=== PATIENT | female | born 1945 | race Caucasian/White ===

== ENCOUNTER 2018-10-27 15:13 | Inpatient (IN) ==
[2018-10-27] MEDS ORDERED: Benzonatate 100 MG CAPSULE PO PRN (20:36)
[2018-10-27] MEDS ORDERED: GuaiFENesin Liq 200 MG/10 ML UDC PO PRN (20:43)
[2018-10-27] MEDS ORDERED: Famotidine 20 MG TABLET PO PRN (20:43)
[2018-10-27] MEDS ORDERED: Loratadine 10 MG TABLET PO SCH (21:00)
[2018-10-27] MEDS ORDERED: Dextrose Gel 15 GM/37.5 ML TUBE PO PRN ×2 (22:36)
[2018-10-27] MEDS ORDERED: D5% in Water 1,000 ML IVC PRN (22:36)
[2018-10-27] MEDS ORDERED: *HR* Dextrose 50 % in Water (Syg) 50 ML SYRINGE IVP PRN (22:36)
[2018-10-27] MEDS: Lactulose Oral Soln 20 GM/30 ML UDC PO SCH (22:45)
[2018-10-27] MEDS: Alirocumab [Praluent Pen] 75 MG SQ SCH (22:45)
[2018-10-27] MEDS: Cefdinir 300 MG CAPSULE PO SCH (22:45)
[2018-10-27] MEDS: Nitrofurantoin (BID) 100 MG CAPSULE PO SCH (22:50)
[2018-10-27] MEDS: Insulin LISPRO 300 UNITS/3 ML VIAL SQ SCH (22:53)
[2018-10-28] MEDS: Torsemide 20 MG TABLET PO SCH (09:41)
[2018-10-28] MEDS: Nitrofurantoin (BID) 100 MG CAPSULE PO SCH ×2 (09:41→22:16)
[2018-10-28] MEDS: Fenofibrate 54 MG TABLET PO SCH (09:41)
[2018-10-28] MEDS: Cholecalciferol (D-3) 1,000 UNIT (25MCG) TABLET PO SCH (09:41)
[2018-10-28] MEDS: Lactulose Oral Soln 20 GM/30 ML UDC PO SCH ×4 (09:41→22:16)
[2018-10-28] MEDS: Insulin LISPRO 300 UNITS/3 ML VIAL SQ SCH ×4 (09:42→22:17)
[2018-10-28] MEDS: Cefdinir 300 MG CAPSULE PO SCH ×2 (09:42→22:16)
--- NOTE | 2018-10-28 12:08 | Internal Med History&Physical ---
Date of Encounter: 10/28/18 Time of Encounter: 11:35 Assessment and Plan (1) Hepatic encephalopathy Current visit: Yes Status: Acute Continue lactulose 20 g qid. (2) HTN (hypertension) Current visit: No Status: Chronic Continue Tenormin and Demadex Qualifiers: Hypertension type: essential hypertension Qualified Code(s): I10 - Essential (primary) hypertension (3) DM type 2 (diabetes mellitus, type 2) Current visit: No Status: Chronic Hemoglobin A1c was 8.4% on 10/22/2018. Continue basal insulin and Accu-Cheks with SSI. Qualifiers: Diabetes mellitus mcfp insulin use: with mcfp use Diabetes mellit complication status: with hyperglycemia Qualified Code(s): E11.65 - Type 2 diabetes mellitus with hyperglycemia; Z79.4 - lobsterman (current) use of insulin (4) Cholelithiasis Current visit: No Status: Chronic Follow-up with surgeon as outpatient. Qualifiers: Cholelithiasis location: gallbladder Cholecystitis presence: without cholecystitis Biliary obstruction: without biliary obstruction Qualified Code(s): K80.20 - Calculus of gallbladder without cholecystitis without obstruction (5) Chronic back pain Current visit: No Status: Chronic Continue tramadol as needed Qualifiers: Back pain location: low back pain Back pain laterality: bilateral Sciatica presence: without sciatica Qualified Code(s): M54.5 - Low back pain; G89.29 - Other chronic pain (6) UTI (urinary tract infection) Current visit: No Status: Acute Continue nitrofurantoin and Cefdinir through 11/01/2018. Add lactobacillus Qualifiers: Urinary tract infection type: acute cystitis Hematuria presence: with hematuria Qualified Code(s): N30.01 - Acute cystitis with hematuria Internal Medicine - H&P: HPI Chief complaint: Hepatic encephalopathy, UTI Admitted From: Hospital to Hospital Transfer Plans for Post Hospital Care: Home History of present illness: Ms. Rodriguez is a 73 year old female who was hospitalized at [facility] October 21- after admission for altered mental status. 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 She was placed on lactulose. CT scan did not show ascites. Ammonia level showed fluctuation but continued elevation. Viral hepatitis profile screen was negative. Additional workup by GI showed elevated IgA but no additional significant abnormalities. She was discharged to [facility] swing bed for ongoing care needs. She denies alcohol use. GI history is negative otherwise for known disorders of her liver or exocrine pancreas. Right upper quadrant ultrasound at [facility] showed cholelithiasis with gallbladder wall thickening and sludge but no evidence of acute cholecystitis. Surgery consult was obtained and recommended outpatient follow-up. Past Med Surg Social Fam HX - Past Medical History Medical history: COPD, diabetes, GERD, hypertension, other Additional medical history: medial meniscus tear. OA of knee Psychiatric history: depression - Past Surgical History Additional surgical history: R total shoulder replacement. CTR right hand. right hand surgery trigger finger. dental - Social History Smoking Status: Never smoker Smokeless Tobacco Status: No Alcohol use: none Drug use: none - Family History Father Age at : 69 Cause of : heart attack Hx Family Cardiac Disorders: Yes Mother Age: 94 Cause of : pneumonia Hx Family Endocrine Disorder: Yes (diabetes) Hx Family Medical Disorders: (6 brothers passed from cancer) Internal Medicine - H&P: Meds Alirocumab [Praluent Pen] 75 mg SQ Q2W 10/21/18 [History] Atenolol [Tenormin] 50 mg PO DAILY 10/21/18 [History] Benzonatate [Tessalon] 200 mg PO Q8HR PRN 10/21/18 [History] Clopidogrel Bisulfate [Plavix] 75 mg PO DAILY 10/21/18 [History] Esomeprazole Magnesium [Nexium] 40 mg PO DAILY 10/21/18 [History] Fenofibrate,Micronized [Fenofibrate] 200 mg PO DAILY 10/21/18 [History] Insulin Glargine,Hum.rec.anlog [Basaglar Kwikpen U-100] 55 unit SQ BID 10/21/18 [History] Potassium Chloride [K-Tab ER] 20 meq PO BID 10/21/18 [History] Torsemide [Demadex] 20 mg PO DAILY 10/21/18 [History] Cholecalciferol (D-3) [Vitamin D] 1,000 unit PO DAILY 10/22/18 [History] Escitalopram [Lexapro] 20 mg PO DAILY 10/22/18 [History] Loratadine [Allergy Relief] 10 mg PO HS 10/22/18 [History] Ranitidine HCl [Heartburn Relief] 150 mg PO BID PRN 10/22/18 [History] Ferrous Fumarate [Ferrocite] 324 mg PO DAILY 10/25/18 [History] Guaifenesin [Mucus Relief] 400 mg PO Q12H PRN 10/25/18 [History] Insulin LISPRO [Humalog Kwikpen U-100] 40 - 46 unit SQ TID 10/25/18 [History] Cefdinir [Omnicef] 300 mg PO BID 4 Days #8 capsule 10/27/18 [Rx] Lactulose 20 gm PO QID udc 10/27/18 [Rx] Nitrofurantoin (BID) [Macrobid] 100 mg PO BID 5 Days #10 capsule 10/27/18 [Rx] Tramadol HCl [Ultram] 50 mg PO Q6H PRN 3 Days #10 tablet 10/27/18 [Rx] Allergy/AdvReac Type Severity Reaction Status Date / Time codeine AdvReac Nausea Verified 10/21/18 21:33 rosuvastatin [From Crestor] AdvReac See Verified 10/21/18 21:33 Comments Sulfa (Sulfonamide AdvReac Cough Verified 10/21/18 21:33 Antibiotics) All Systems PM: A 10-system review of systems was performed and is negative for pertinent findings except as documented above in the HPI. Review of systems: Gen.: She states her weight has been stable for several months Cardiovascular: She reports hypertension and claims MO approximately 2005. Regadenoson EST 10/06/2017 showed LVEF of 70% and no EKG or perfusion evidence of ischemia. She denies history of heart failure DVT or pulmonary embolus Respiratory: She is a lifelong nonsmoker and denies chronic lung disease GI: As per history of present illness : She had right hydronephrosis seen on CT scan at [facility] admission. Urology was consulted and did not recommend specific intervention. She denies other dis orders of her kidney or bladder. 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 Head CT 10/21/2018 showed chronic ischemic changes including remote right occipital infarct. She denies seizures. Endocrine: She reports diagnosis of diabetes made approximately one year ago. She has hyperlipidemia but denies known thyroid disease Hematology/oncology: She denies blood disorders cancers or anemia Psychiatric: She denies anxiety depression or other mental health issues Musko skeletal: She has DJD and chronic low back pain. She denies known gout. - Constitutional Vitals: Temp Pulse Resp BP Pulse Ox 97.8 F 69 16 153/71 93 10/28/18 06:37 10/28/18 06:37 10/28/18 06:37 10/28/18 06:37 10/28/18 06:37 Exam: Gen.: She is a well-developed well-nourished female sitting in a chair at bedside who appears in no acute distress HEENT: Head is atraumatic and normocephalic. Eyes: EOMI. There is no scleral icterus. Mouth: Mucosa is moist. Neck: Supple and nontender. There is no thyromegaly or adenopathy noted. Heart: Regular without murmurs gallops or ectopics Lungs: No wheezes or crackles are heard. Abdomen: Soft and nontender. No masses or guarding are noted. Extremities: There is no cyanosis or clubbing noted. There is trace pitting edema on the dorsum of the feet and lower legs bilaterally. Dorsalis pedis and posterior tibial pulses are trace palpable. Neurologic: Mental status: She is able to answer questions but has slowed mentation. Cranial nerves: Smile is symmetric. Forehead wrinkles bilaterally. Tongue protrudes midline. EOMI. Motor: There is no pronator drift. Cerebellar: Finger to nose is intact bilaterally. Skin: Warm and dry
[2018-10-28] MEDS: Lactobacillus 1 EACH CAP.SPRINK PO SCH (22:16)
[2018-10-28] MEDS: Insulin DETEMIR 100 UNIT/ML X5UNITS SQ SCH (22:16)
[2018-10-29] MEDS: Torsemide 20 MG TABLET PO SCH (08:07)
[2018-10-29] MEDS: Lactulose Oral Soln 20 GM/30 ML UDC PO SCH ×2 (08:07→15:00)
[2018-10-29] MEDS: Cefdinir 300 MG CAPSULE PO SCH ×2 (08:07→22:03)
[2018-10-29] MEDS: Fenofibrate 54 MG TABLET PO SCH (08:08)
[2018-10-29] MEDS: Insulin LISPRO 300 UNITS/3 ML VIAL SQ SCH ×4 (08:08→22:04)
[2018-10-29] MEDS: Lactobacillus 1 EACH CAP.SPRINK PO SCH ×2 (08:08→22:03)
[2018-10-29] MEDS: Cholecalciferol (D-3) 1,000 UNIT (25MCG) TABLET PO SCH (08:08)
[2018-10-29] MEDS: Insulin DETEMIR 100 UNIT/ML X5UNITS SQ SCH ×2 (08:09→22:04)
[2018-10-29] MEDS: Nitrofurantoin (BID) 100 MG CAPSULE PO SCH ×2 (08:11→22:07)
--- NOTE | 2018-10-29 10:14 | Internal Med Progress Note ---
Date of Encounter: 10/29/18 Time of Encounter: 10:05 - Assessment and plan (1) Hepatic encephalopathy Current Visit: Yes Status: Acute Assessment and plan: October 29. Change lactulose to 30 g twice a day at 0700 and 1500 daily. (2) HTN (hypertension) Current Visit: No Status: Chronic Assessment and plan: October 29. Continue Tenormin and Demadex Qualifiers: Hypertension type: essential hypertension Qualified Code(s): I10 - Essential (primary) hypertension (3) DM type 2 (diabetes mellitus, type 2) Current Visit: No Status: Chronic Assessment and plan: October 29. Hemoglobin A1c was 8.4% on 10/22/2018. Blood sugars are above desirable range. Increase Levemir to 18 units twice daily. Continue Accu-Cheks with SSI. Qualifiers: Diabetes mellitus watcher automat long goods insulin use: with residential use Diabetes mellitus complication status: with hyperglycemia Qualified Code(s): E11.65 - Type 2 diabetes mellitus with hyperglycemia; Z79.4 - [facility] (current) use of insulin (4) Cholelithiasis Current Visit: No Status: Chronic Assessment and plan: October 29. Follow-up with surgeon as outpatient. Qualifiers: Cholelithiasis location: gallbladder Cholecystitis presence: without cholecystitis Biliary obstruction: without biliary obstruction Qualified Code(s): K80.20 - Calculus of gallbladder without cholecystitis without obstruction (5) Chronic back pain Current Visit: No Status: Chronic Assessment and plan: October 29. Continue tramadol as needed. Qualifiers: Back pain location: low back pain Back pain laterality: bilateral S ciatica presence: without sciatica Qualified Code(s): M54.5 - Low back pain; G89.29 - Other chronic pain (6) UTI (urinary tract infection) Current Visit: No Status: Acute Assessment and plan: October 29. Continue nitrofurantoin and Cefdinir with lactobacillus through 11/01/2018. Qualifiers: Urinary tract infection type: acute cystitis Hematuria presence: with hematuria Qualified Code(s): N30.01 - Acute cystitis with hematuria - Subjective Interval history: October 29. She reports feeling tired today after having gone to the bathroom for BM several times during the night. - Constitutional Vitals: Temp Pulse Resp BP Pulse Ox 98.5 F 73 20 174/83 96 10/29/18 07:09 10/29/18 07:09 10/29/18 07:09 10/29/18 07:09 10/29/18 07:09 Exam: She is sitting in a chair at bedside resting comfortably. Her affect is overall cheerful. Extremities show trace pitting edema bilaterally. I reviewed her medications and lab results. Consult Discharge Plan - Plan Referrals: Cesar Terry MD [Primary Care Provider] - 1 week
[2018-10-29] MEDS: traMADol 50 MG TABLET PO PRN ×2 (11:53→22:03)
[2018-10-30] MEDS: Lactulose Oral Soln 20 GM/30 ML UDC PO SCH ×2 (06:19→14:52)
[2018-10-30] MEDS: Cholecalciferol (D-3) 1,000 UNIT (25MCG) TABLET PO SCH (08:31)
[2018-10-30] MEDS: Nitrofurantoin (BID) 100 MG CAPSULE PO SCH ×2 (08:31→21:26)
[2018-10-30] MEDS: Torsemide 20 MG TABLET PO SCH (08:32)
[2018-10-30] MEDS: Cefdinir 300 MG CAPSULE PO SCH ×2 (08:32→21:20)
[2018-10-30] MEDS: Lactobacillus 1 EACH CAP.SPRINK PO SCH ×2 (08:32→21:20)
[2018-10-30] MEDS: Fenofibrate 54 MG TABLET PO SCH (08:33)
[2018-10-30] MEDS: Insulin LISPRO 300 UNITS/3 ML VIAL SQ SCH ×5 (08:34→21:21)
[2018-10-30] MEDS: Insulin DETEMIR 100 UNIT/ML X5UNITS SQ SCH ×2 (08:37→21:21)
[2018-10-30] MEDS: traMADol 50 MG TABLET PO PRN (08:42)
--- NOTE | 2018-10-30 19:51 | Internal Med Progress Note ---
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 insulin (2) Hepatic encephalopathy Current Visit: Yes Status: Acute Assessment and plan: Continue lactulose (3) Headache Current Visit: Yes Status: Acute Assessment and plan: Headache is primarily related to bear that brain aneurysms Qualifiers: Headache type: other vascular headache Qualified Code(s): G44.1 - Vascular headache, not elsewhere classified (4) UTI (urinary tract infection) Current Visit: Yes Status: Acute Assessment and plan: Continue nitrofurantoin Ceftin near and lactobacilli through 11/01/18 Qualifiers: Urinary tract infection type: acute cystitis Hematuria presence: with hematuria Qualified Code(s): N30.01 - Acute cystitis with hematuria (5) Brain aneurysm Current Visit: Yes Status: Chronic Assessment and plan: Patient declines further workup she would not want surgery (6) Hyperammonemia Current Visit: No Status: Chronic Assessment and plan: Continue the lactulose (7) HTN (hypertension) Current Visit: No Status: Chronic Assessment and plan: Stable continue Tenormin and Demadex Qualifiers: Hypertension type: essential hypertension Qualified Code(s): I10 - Essential (primary) hypertension (8) DM type 2 (diabetes mellitus, type 2) Current Visit: No Status: Chronic Assessment and plan: Adjusting insulins. Her to decrease refined foods and processed sugars Qualifiers: Diabetes mellitus exterminator helper insulin use: with exterminator helper use Diabetes mellitus complication status: with hyperglycemia Qualified Code(s): E11.65 - Type 2 diabetes mellitus with hyperglycemia; Z79.4 - jail (current) use of insulin (9) Chronic back pain Current Visit: No Status: Chronic Assessment and plan: Control continue tramadol Qualifiers: Back pain location: low back pain Back pain laterality: bilateral Sciatica presence: without sciatica Qualified Code(s): M54.5 - Low back pain; G89.29 - Other chronic pain - Time Spent With Patient Greater than 35 minutes - Subjective Interval history: 50-year-old female with history of hepatic encephalopathy on lactulose for elevated ammonia level. She is admitted to [facility] from October 21- and then discharged her for rehabilitation Dr. Ruiz was seen her I am covering for him this weekend. She has a history of hypertension diabetes minus type II cholelithiasis, chronic lower back pain, UTI, Oak[place], depression, GERD, COPD, OA. Eyes asked to see her because her blood sugars are running high she was on the vascular home sliding scale that he like 40 units when it was normal range no NovoLog. I do not feel comfortable with this we will go ahead and give her long-acting insulin at home but we will give continuous of NovoLog with each meal and sliding scale to see how much or she needs to. She is okay with this plan. He also mentioned having headaches whenever she got up to go to rehabilitation. They improve when she laid down. Things are prior related to her brain aneurysms. She denies any chest pain shortness breath headache bowel pain right now. Questions answered concerns addressed - Constitutional Vitals: Temp Pulse Resp BP Pulse Ox 97.5 F L 69 17 140/73 94 10/30/18 19:20 10/30/18 19:20 10/30/18 19:20 10/30/18 19:20 10/30/18 19:20 Exam: General: Alert no acute distress seemed to have issues with details Lungs: Clear to auscultation bilaterally without wheezing or crackles Heart: Regular rate and rythms without murmer or rubs Abdomen: Soft, nontender, Extremities: no edema, redness Consult Discharge Plan - Plan Referrals: Cesar Terry MD [Primary Care Provider] - 1 week
[2018-10-31] MEDS: Lactulose Oral Soln 20 GM/30 ML UDC PO SCH ×2 (06:22→14:44)
[2018-10-31] MEDS: Insulin LISPRO 300 UNITS/3 ML VIAL SQ SCH ×7 (09:07→21:30)
[2018-10-31] MEDS: Lactobacillus 1 EACH CAP.SPRINK PO SCH ×2 (09:09→21:30)
[2018-10-31] MEDS: Torsemide 20 MG TABLET PO SCH (09:09)
[2018-10-31] MEDS: Fenofibrate 54 MG TABLET PO SCH (09:09)
[2018-10-31] MEDS: Cholecalciferol (D-3) 1,000 UNIT (25MCG) TABLET PO SCH (09:09)
[2018-10-31] MEDS: Cefdinir 300 MG CAPSULE PO SCH ×2 (09:10→21:29)
[2018-10-31] MEDS: Insulin DETEMIR 100 UNIT/ML X5UNITS SQ SCH (09:11)
[2018-10-31] MEDS: Nitrofurantoin (BID) 100 MG CAPSULE PO SCH ×2 (09:13→21:29)
[2018-10-31] MEDS ORDERED: D5% in Water 1,000 ML IVC PRN (12:07)
[2018-10-31] MEDS ORDERED: *HR* Dextrose 50 % in Water (Syg) 50 ML SYRINGE IVP PRN (12:07)
[2018-10-31] MEDS ORDERED: Dextrose Gel 15 GM/37.5 ML TUBE PO PRN ×2 (12:07)
--- NOTE | 2018-10-31 13:54 | Internal Med Progress Note ---
Date of Encounter: 10/31/18 Time of Encounter: 13:50 - Assessment and plan (1) Hyperglycemia due to type 2 diabetes mellitus Current Visit: Yes Status: Acute Assessment and plan: Adjust her insulins, sliding scale moderate with mealtime no long and long- acting insulin twice a day 05/03/18 continue adjusting insulin education Qualifiers: Diabetes mellitus prison insulin use: with long term care social worker use Qualified Code(s): E11.65 - Type 2 diabetes mellitus with hyperglycemia; Z79.4 - long term care social worker (current) use of insulin (2) Hepatic encephalopathy Current Visit: Yes Status: Acute Assessment and plan: Continue lactulose 05/03/18 continue lactulose. Ammonia level (3) Headache Current Visit: Yes Status: Acute Assessment and plan: Headache is primarily related to bear that brain aneurysms 05/03/18 headaches improved Qualifiers: Headache type: other vascular headache Qualified Code(s): G44.1 - Vascular headache, not elsewhere classified (4) UTI (urinary tract infection) Current Visit: Yes Status: Acute Assessment and plan: Continue nitrofurantoin Ceftin near and lactobacilli through 11/01/18 05/03/18 continue nitrofurantoin, slight Ceftin and lactobacilli through tomorrow Qualifiers: Urinary tract infection type: acute cystitis Hematuria presence: with hematuria Qualified Code(s): N30.01 - Acute cystitis with hematuria (5) Brain aneurysm Current Visit: Yes Status: Chronic Assessment and plan: Patient declines further workup she would not want surgery 05/03/18 declines further workup (6) Hyperammonemia Current Visit: No Status: Chronic Assessment and plan: Continue the lactulose 05/03/18 continue lactulose follow-up ammonia level (7) HTN (hypertension) Current Visit: No Status: Chronic Assessment and plan: Stable continue Tenormin and Demadex 05/03/18 stable continue Tenormin and Demadex Qualifiers: Hypertension type: essential hypertension Qualified Code(s): I10 - Essential (primary) hypertension (8) DM type 2 (diabetes mellitus, type 2) Current Visit: No Status: Chronic Assessment and plan: Adjusting insulins. Her to decrease refined foods and processed sugars 05/03/18 and continued education process adjusting insulin Qualifiers: Diabetes mellitus long term care social worker insulin use: with prison use Diabetes mellitus complication status: with hyperglycemia Qualified Code(s): E11.65 - Type 2 diabetes mellitus with hyperglycemia; Z79.4 - long term care social worker (current) use of insulin (9) Chronic back pain Current Visit: No Status: Chronic Assessment and plan: Control continue tramadol 05/03/18 controlled continue tramadol Qualifiers: Back pain location: low back pain Back pain laterality: bilateral Sciatica presence: without sciatica Qualified Code(s): M54.5 - Low back pain; G89.29 - Other chronic pain - Time Spent With Patient 25 - 35 minutes - Subjective Interval history: 50-year-old female with history of hepatic encephalopathy on lactulose for elevated ammonia level. She is admitted to [facility] from October 21- and then discharged her for rehabilitation Dr. Ruiz was seen her I am covering for him this weekend. She has a history of hypertension diabetes minus type II cholelithiasis, chronic lower back pain, UTI, [place], depression, GERD, COPD, OA. Eyes asked to see her because her blood sugars are running high she was on the vascular home sliding scale that he like 40 units when it was normal range no NovoLog. I do not feel comfortable with this we will go ahead and give her long-acting insulin at home but we will give continuous of NovoLog with each meal and sliding scale to see how much or she needs to. She is okay with this plan. He also mentioned having headaches whenever she got up to go to rehabilitation. They improve when she laid down. Things are prior related to her brain aneurysms. She denies any chest pain shortness breath headache bowel pain right now. Questions answered concerns addressed 05/03/18 she reports her headache is better but she is having a lot of loose stools. She is on lactulose for high ammonia level. Son is present and asking questions about ammonia level and sugar level. We will increase her sliding scale to high dose but hopefully get the dietary involved tomorrow to educate about carb counting in relationship to insulin. The goal is to change the sliding scale insulin to standard amount of insulin with each meal and continue the basal insulin Dr. Osorio and continue adjusting she still little better today which chest pain. She has a little short of breath when she exerts herself but not laying in bed. been running in the 300 range. Questions answered concerns addressed - Constitutional Vitals: Temp Pulse Resp BP Pulse Ox 97.9 F 69 18 139/70 94 10/31/18 07:16 10/31/18 09:04 10/31/18 07:16 10/31/18 09:04 10/31/18 09:04 Exam: General: Alert and oriented, no acute distress Lungs: Clear to auscultation bilaterally without wheezing or crackles Heart: Regular rate and rythms without murmer or rubs Abdomen: Soft, nontender, Extremities: 1+ edema, redness Consult Discharge Plan - Plan Referrals: Cesar Terry MD [Primary Care Provider] - 1 week
[2018-10-31] MEDS: traMADol 50 MG TABLET PO PRN (21:29)
[2018-11-01] MEDS: Insulin DETEMIR 100 UNIT/ML X5UNITS SQ SCH ×3 (04:55→20:06)
[2018-11-01] MEDS: Lactulose Oral Soln 20 GM/30 ML UDC PO SCH ×2 (07:55→16:34)
[2018-11-01] MEDS: Nitrofurantoin (BID) 100 MG CAPSULE PO SCH (08:00)
[2018-11-01] MEDS: Cholecalciferol (D-3) 1,000 UNIT (25MCG) TABLET PO SCH (08:01)
[2018-11-01] MEDS: Fenofibrate 54 MG TABLET PO SCH (08:01)
[2018-11-01] MEDS: Torsemide 20 MG TABLET PO SCH (08:01)
[2018-11-01] MEDS: traMADol 50 MG TABLET PO PRN (08:02)
[2018-11-01] MEDS: Lactobacillus 1 EACH CAP.SPRINK PO SCH (08:02)
[2018-11-01] MEDS: Insulin LISPRO 300 UNITS/3 ML VIAL SQ SCH ×6 (08:03→20:05)
--- NOTE | 2018-11-01 15:32 | Internal Med Progress Note ---
Date of Encounter: 11/01/18 Time of Encounter: 15:20 - Assessment and plan (1) Hepatic encephalopathy Current Visit: Yes Status: Acute Assessment and plan: October 29. Change lactulose to 30 g twice a day at 0700 and 1500 daily. November 01. Ammonia level has decreased 86. Trial reduction of lactulose to 20 g twice a day. (2) HTN (hypertension) Current Visit: No Status: Chronic Assessment and plan: October 29. Continue Tenormin and Demadex Qualifiers: Hypertension type: essential hypertension Qualified Code(s): I10 - Essential (primary) hypertension (3) DM type 2 (diabetes mellitus, type 2) Current Visit: No Status: Chronic Assessment and plan: October 29. Hemoglobin A1c was 8.4% on 10/22/2018. Blood sugars are above desirable range. Increase Levemir to 18 units twice daily. Continue Accu-Cheks with SSI. November 01. Blood sugars show significant fluctuation. Increase Levemir to 60 units twice a day. Continue Accu-Cheks with SSI. Qualifiers: Diabetes mellitus long-term insulin use: with long-term use Diabetes mellitus complication status: with hyperglycemia Qualified Code(s): E11.65 - Type 2 diabetes mellitus with hyperglycemia; Z79.4 - penitentiary (current) use of insulin (4) Cholelithiasis Current Visit: No Status: Chronic Assessment and plan: October 29. Follow-up with surgeon as outpatient. Qualifiers: Cholelithiasis location: gallbladder Cholecystitis presence: without cholecystitis Biliary obstruction: without biliary obstruction Qualified Code(s): K80.20 - Calculus of gallbladder without cholecystitis without obstruction (5) Chronic back pain Current Visit: No Status: Chronic Assessment and plan: October 29. Continue tramadol as needed. Qualifiers: Back pain location: low back pain Back pain laterality: bilateral Sciatica presence: without sciatica Qualified Code(s): M54.5 - Low back pain; G89.29 - Other chronic pain (6) UTI (urinary tract infection) Current Visit: Yes Status: Acute Assessment and plan: October 29. Continue nitrofurantoin and Cefdinir with lactobacillus through 11/01/2018. November 01. Cefdinir has been discontinued. DC nitrofurantoin and lactobacillus today. Qualifiers: Urinary tract infection type: acute cystitis Hematuria presence: with hematuria Qualified Code(s): N30.01 - Acute cystitis with hematuria - Subjective Interval history: October 29. She reports feeling tired today after having gone to the bathroom for BM several times during the night. November 01. She has no complaints today except she is having significant diarrhea from the lactulose. She was seen by Dr. Johnson over the weekend for elevated blood sugars. She is now on Levemir 55 units twice a day and Accu-Cheks with SSI. - Constitutional Vitals: Temp Pulse Resp BP Pulse Ox 98.4 F 66 16 122/60 93 11/01/18 07:27 11/01/18 07:27 11/01/18 07:27 11/01/18 07:27 11/01/18 07:27 Exam: She is resting comfortably in bed and appears in no acute distress. Her affect is more bright and cheerful. She is less slowed in her mentation/responses. I reviewed her medications and lab results. Consult Discharge Plan - Plan Referrals: Cesar Terry MD [Primary Care Provider] - 1 week
[2018-11-02] MEDS: traMADol 50 MG TABLET PO PRN ×2 (00:51→14:30)
[2018-11-02] MEDS: Lactulose Oral Soln 20 GM/30 ML UDC PO SCH ×2 (06:43→14:31)
[2018-11-02 07:10] LABS: Basophils % 0.4 %; Eosinophils # 0.2 K/mcL (0.0-0.6); Eosinophils % 3.4 %; Hematocrit 36.6 % (35.3-44.9); Hemoglobin 12.6 g/dL (11.5-15.4); Immature Granulocytes % 0.4 % (0-4); Lymphocytes # 1.7 K/mcL (0.6-4.6); Lymphocytes % 36.8 %; Mean Corpuscular HGB Conc 34.4 g/dL (31.6-35.5); Mean Corpuscular Hemoglobin 30.5 pg (28.0-33.3); Mean Corpuscular Volume 88.6 fL (83.0-100.0); Monocytes # 0.4 K/mcL (0.0-1.3); Monocytes % 9.2 %; Neutrophils # 2.3 K/mcL (1.6-8.9); Red Blood Count 4.13 M/mcL (3.82-4.97); Red Cell Distribution Width 17.9 % (11.5-14.5); Segmented Neutrophils % 49.8 %; White Blood Count 4.7 K/mcL (4.3-11.1)
[2018-11-02 07:32] LABS: Platelet Count 99 K/mcL (140-400)
[2018-11-02] MEDS: Insulin LISPRO 300 UNITS/3 ML VIAL SQ SCH ×4 (08:04→20:48)
[2018-11-02] MEDS: Fenofibrate 54 MG TABLET PO SCH (08:10)
[2018-11-02] MEDS: Cholecalciferol (D-3) 1,000 UNIT (25MCG) TABLET PO SCH (08:10)
[2018-11-02] MEDS: Torsemide 20 MG TABLET PO SCH (08:10)
[2018-11-02] MEDS: Insulin DETEMIR 100 UNIT/ML X5UNITS SQ SCH ×2 (08:11→20:49)
[2018-11-02 08:24] LABS: BUN/Creatinine Ratio 22 (6-26); Blood Urea Nitrogen 19 mg/dL (8-23); Calcium 9.3 mg/dL (8.6-10.3); Carbon Dioxide 30 mEq/L (23-29); Chloride 99 mEq/L (98-107); Glucose 118 mg/dL (70-105); Osmolality,Calculated 283 (280-300); Potassium 3.5 mEq/L (3.5-5.1); Sodium 135 mEq/L (136-145); eGFR For African Americans > 60 (> 60); eGFR For Non-African Americans > 60 (> 60)
[2018-11-03] MEDS: traMADol 50 MG TABLET PO PRN ×2 (03:44→19:46)
[2018-11-03] MEDS: Lactulose Oral Soln 20 GM/30 ML UDC PO SCH ×2 (06:39→16:55)
[2018-11-03] MEDS: Cholecalciferol (D-3) 1,000 UNIT (25MCG) TABLET PO SCH (08:52)
[2018-11-03] MEDS: Torsemide 20 MG TABLET PO SCH (08:52)
[2018-11-03] MEDS: Fenofibrate 54 MG TABLET PO SCH (08:52)
[2018-11-03] MEDS: Insulin LISPRO 300 UNITS/3 ML VIAL SQ SCH ×4 (08:53→21:47)
[2018-11-03] MEDS: Insulin DETEMIR 100 UNIT/ML X5UNITS SQ SCH ×2 (08:53→21:51)
[2018-11-04] MEDS: Lactulose Oral Soln 20 GM/30 ML UDC PO SCH ×2 (06:04→17:06)
[2018-11-04] MEDS: Insulin LISPRO 300 UNITS/3 ML VIAL SQ SCH ×4 (08:46→21:35)
[2018-11-04] MEDS: Insulin DETEMIR 100 UNIT/ML X5UNITS SQ SCH ×2 (08:46→21:39)
[2018-11-04] MEDS: Fenofibrate 54 MG TABLET PO SCH (08:47)
[2018-11-04] MEDS: Cholecalciferol (D-3) 1,000 UNIT (25MCG) TABLET PO SCH (08:47)
[2018-11-04] MEDS: Torsemide 20 MG TABLET PO SCH (08:47)
--- NOTE | 2018-11-04 14:44 | Internal Med Progress Note ---
Date of Encounter: 11/04/18 Time of Encounter: 14:35 - Assessment and plan (1) Hepatic encephalopathy Current Visit: Yes Status: Acute Assessment and plan: October 29. Change lactulose to 30 g twice a day at 0700 and 1500 daily. November 01. Ammonia level has decreased 86. Trial reduction of lactulose to 20 g twice a day. November 04. Clinically stable. Continue present dose lactulose. I told her that serum ammonia levels were not a sensitive test for monitoring HE. (2) HTN (hypertension) Current Visit: No Status: Chronic Assessment and plan: October 29. Continue Tenormin and Demadex Qualifiers: Hypertension type: essential hypertension Qualified Code(s): I10 - Essential (primary) hypertension (3) DM type 2 (diabetes mellitus, type 2) Current Visit: No Status: Chronic Assessment and plan: October 29. Hemoglobin A1c was 8.4% on 10/22/2018. Blood sugars are above desirable range. Increase Levemir to 18 units twice daily. Continue Accu-Cheks with SSI. November 01. Blood sugars show significant fluctuation. Increase Levemir to 60 units twice a day. Continue Accu-Cheks with SSI. November 04. Blood sugars acceptable. Continue present Rx. Qualifiers: Diabetes mellitus group home insulin use: with termite exterminator use Diabetes mellitus complication status: with hyperglycemia Qualified Code(s): E11.65 - Type 2 diabetes mellitus with hyperglycemia; Z79.4 - group home (current) use of insulin (4) Cholelithiasis Current Visit: No Status: Chronic Assessment and plan: October 29. Follow-up with surgeon as outpatient. Qualifiers: Cholelithiasis location: gallbladder Cholecystitis presence: without cholecystitis Biliary obstruction: without biliary obstruction Qualified Code(s): K80.20 - Calculus of gallbladder without cholecystitis without obstruction (5) Chronic back pain Current Visit: No Status: Chronic Assessment and plan: October 29. Continue tramadol as needed. Qualifiers: Back pain location: low back pain Back pain laterality: bilateral Sciatica presence: without sciatica Qualified Code(s): M54.5 - Low back pain; G89.29 - Other chronic pain (6) UTI (urinary tract infection) Current Visit: Yes Status: Acute Assessment and plan: October 29. Continue nitrofurantoin and Cefdinir with lactobacillus through 11/01/2018. November 01. Cefdinir has been discontinued. DC nitrofurantoin and lactobacillus today. Qualifiers: Urinary tract infection type: acute cystitis Hematuria presence: with hematuria Qualified Code(s): N30.01 - Acute cystitis with hematuria - Subjective Interval history: October 29. She reports feeling tired today after having gone to the bathroom for BM several times during the night. November 01. She has no complaints today except she is having significant diarrhea from the lactulose. She was seen by Dr. Johnson over the weekend for elevated blood sugars. She is now on Levemir 55 units twice a day and Accu-Cheks with SSI. November 04. She has no new complaints. - Constitutional Vitals: Temp Pulse Resp BP Pulse Ox 98.3 F 64 16 129/73 95 11/04/18 07:20 11/04/18 07:20 11/04/18 07:20 11/04/18 07:20 11/04/18 07:20 Exam: She is sitting in a chair at bedside resting comfortably. Her affect is overall cheerful. She is appropriate in conversation. Internal Medicine: Result - Labs CBC & Chem 7: 11/02/18 06:51 11/02/18 06:51 Consult Discharge Plan - Plan Referrals: Cesar Terry MD [Primary Care Provider] - 1 week
[2018-11-04] MEDS: traMADol 50 MG TABLET PO PRN (21:38)
[2018-11-05] MEDS: Lactulose Oral Soln 20 GM/30 ML UDC PO SCH ×2 (06:30→14:28)
[2018-11-05] MEDS: Fenofibrate 54 MG TABLET PO SCH (08:22)
[2018-11-05] MEDS: Cholecalciferol (D-3) 1,000 UNIT (25MCG) TABLET PO SCH (08:22)
[2018-11-05] MEDS: Torsemide 20 MG TABLET PO SCH (08:22)
[2018-11-05] MEDS: Insulin LISPRO 300 UNITS/3 ML VIAL SQ SCH ×4 (08:39→21:41)
[2018-11-05] MEDS: Insulin DETEMIR 100 UNIT/ML X5UNITS SQ SCH ×2 (08:39→21:55)
[2018-11-05] MEDS: traMADol 50 MG TABLET PO PRN (21:46)
[2018-11-06] MEDS: Lactulose Oral Soln 20 GM/30 ML UDC PO SCH ×2 (06:09→17:52)
[2018-11-06] MEDS: traMADol 50 MG TABLET PO PRN ×2 (06:13→21:20)
[2018-11-06] MEDS: Insulin LISPRO 300 UNITS/3 ML VIAL SQ SCH ×4 (07:40→21:22)
[2018-11-06] MEDS: Fenofibrate 54 MG TABLET PO SCH (09:09)
[2018-11-06] MEDS: Torsemide 20 MG TABLET PO SCH (09:09)
[2018-11-06] MEDS: Cholecalciferol (D-3) 1,000 UNIT (25MCG) TABLET PO SCH (09:09)
[2018-11-06] MEDS: Insulin DETEMIR 100 UNIT/ML X5UNITS SQ SCH ×2 (09:10→21:23)
[2018-11-07] MEDS: Lactulose Oral Soln 20 GM/30 ML UDC PO SCH ×2 (06:47→16:49)
[2018-11-07] MEDS: Insulin LISPRO 300 UNITS/3 ML VIAL SQ SCH ×4 (08:24→19:42)
[2018-11-07] MEDS: Fenofibrate 54 MG TABLET PO SCH (08:57)
[2018-11-07] MEDS: Cholecalciferol (D-3) 1,000 UNIT (25MCG) TABLET PO SCH (08:58)
[2018-11-07] MEDS: Torsemide 20 MG TABLET PO SCH (08:58)
[2018-11-07] MEDS: Insulin DETEMIR 100 UNIT/ML X5UNITS SQ SCH ×2 (08:58→19:42)
--- NOTE | 2018-11-07 14:43 | Internal Med Progress Note ---
Date of Encounter: 11/07/18 Time of Encounter: 15:30 - Assessment and plan (1) Hepatic encephalopathy Current Visit: Yes Status: Acute Assessment and plan: October 29. Change lactulose to 30 g twice a day at 0700 and 1500 daily. November 01. Ammonia level has decreased 86. Trial reduction of lactulose to 20 g twice a day. November 04. Clinically stable. Continue present dose lactulose. I told her that serum ammonia levels were not a sensitive test for monitoring HE. November 07. Clinically stable. Continue present Rx. (2) HTN (hypertension) Current Visit: No Status: Chronic Assessment and plan: October 29. Continue Tenormin and Demadex Qualifiers: Hypertension type: essential hypertension Qualified Code(s): I10 - Essential (primary) hypertension (3) DM type 2 (diabetes mellitus, type 2) Current Visit: No Status: Chronic Assessment and plan: October 29. Hemoglobin A1c was 8.4% on 10/22/2018. Blood sugars are above desirable range. Increase Levemir to 18 units twice daily. Continue Accu-Cheks with SSI. November 01. Blood sugars show significant fluctuation. Increase Levemir to 60 units twice a day. Continue Accu-Cheks with SSI. November 04. Blood sugars acceptable. Continue present Rx. Qualifiers: Diabetes mellitus fci insulin use: with fci use Diabetes mellitus complication status: with hyperglycemia Qualified Code(s): E11.65 - Type 2 diabetes mellitus with hyperglycemia; Z79.4 - care home (current) use of insulin (4) Cholelithiasis Current Visit: No Status: Chronic Assessment and plan: October 29. Follow-up with surgeon as outpatient. Qualifiers: Cholelithiasis location: gallbladder Cholecystitis presence: without cholecystitis Biliary obstruction: without biliary obstruction Qualified Code(s): K80.20 - Calculus of gallbladder without cholecystitis without obstruction (5) Chronic back pain Current Visit: No Status: Chronic Assessment and plan: October 29. Continue tramadol as needed. Qualifiers: Back pain location: low back pain Back pain laterality: bilateral Sciatica presence: without sciatica Qualified Code(s): M54.5 - Low back pain; G89.29 - Other chronic pain (6) UTI (urinary tract infection) Current Visit: Yes Status: Acute Assessment and plan: October 29. Continue nitrofurantoin and Cefdinir with lactobacillus through 11/01/2018. November 01. Cefdinir has been discontinued. DC nitrofurantoin and lactobacillus today. Qualifiers: Urinary tract infection type: acute cystitis Hematuria presence: with hematuria Qualified Code(s): N30.01 - Acute cystitis with hematuria - Subjective Interval history: October 29. She reports feeling tired today after having gone to the bathroom for BM several times during the night. November 01. She has no complaints today except she is having significant diarrhea from the lactulose. She was seen by Dr. Johnson over the weekend for elevated blood sugars. She is now on Levemir 55 units twice a day and Accu-Cheks with SSI. November 04. She has no new complaints. November 07. She has no new complaints. - Constitutional Vitals: Temp Pulse Resp BP Pulse Ox 97.6 F 62 16 138/70 94 11/07/18 07:32 11/07/18 07:32 11/07/18 07:32 11/07/18 07:32 11/07/18 07:32 Exam: She is resting comfortably in bed and appears in no acute distress. Her affect is overall cheerful. She is alert, talkative, and appropriate in conversation. I reviewed her medications and lab results. Internal Medicine: Result - Labs CBC & Chem 7: 11/02/18 06:51 11/02/18 06:51 Consult Discharge Plan - Plan Referrals: Cesar Terry MD [Primary Care Provider] - 1 week
[2018-11-07] MEDS: traMADol 50 MG TABLET PO PRN (19:42)
[2018-11-08] MEDS: Lactulose Oral Soln 20 GM/30 ML UDC PO SCH ×2 (06:36→16:40)
[2018-11-08] MEDS: traMADol 50 MG TABLET PO PRN ×2 (06:37→21:31)
[2018-11-08] MEDS: Insulin LISPRO 300 UNITS/3 ML VIAL SQ SCH ×4 (08:46→21:49)
[2018-11-08] MEDS: Torsemide 20 MG TABLET PO SCH (08:58)
[2018-11-08] MEDS: Cholecalciferol (D-3) 1,000 UNIT (25MCG) TABLET PO SCH (08:58)
[2018-11-08] MEDS: Fenofibrate 54 MG TABLET PO SCH (08:58)
[2018-11-08] MEDS: Insulin DETEMIR 100 UNIT/ML X5UNITS SQ SCH ×2 (08:59→21:32)
[2018-11-09] MEDS: Lactulose Oral Soln 20 GM/30 ML UDC PO SCH ×2 (06:31→17:06)
[2018-11-09] MEDS: Fenofibrate 54 MG TABLET PO SCH (08:54)
[2018-11-09] MEDS: Insulin DETEMIR 100 UNIT/ML X5UNITS SQ SCH ×2 (08:54→20:47)
[2018-11-09] MEDS: Insulin LISPRO 300 UNITS/3 ML VIAL SQ SCH ×4 (08:54→20:47)
[2018-11-09] MEDS: Cholecalciferol (D-3) 1,000 UNIT (25MCG) TABLET PO SCH (08:54)
[2018-11-09] MEDS: Torsemide 20 MG TABLET PO SCH (08:54)
--- NOTE | 2018-11-09 14:28 | Internal Med Progress Note ---
Date of Encounter: 11/09/18 Time of Encounter: 14:20 - Assessment and plan (1) Hepatic encephalopathy Current Visit: Yes Status: Acute Assessment and plan: October 29. Change lactulose to 30 g twice a day at 0700 and 1500 daily. November 01. Ammonia level has decreased 86. Trial reduction of lactulose to 20 g twice a day. November 04. Clinically stable. Continue present dose lactulose. I told her that serum ammonia levels were not a sensitive test for monitoring HE. November 07. Clinically stable. Continue present Rx. (2) HTN (hypertension) Current Visit: No Status: Chronic Assessment and plan: October 29. Continue Tenormin and Demadex Qualifiers: Hypertension type: essential hypertension Qualified Code(s): I10 - Essential (primary) hypertension (3) DM type 2 (diabetes mellitus, type 2) Current Visit: No Status: Chronic Assessment and plan: October 29. Hemoglobin A1c was 8.4% on 10/22/2018. Blood sugars are above desirable range. Increase Levemir to 18 units twice daily. Continue Accu-Cheks with SSI. November 01. Blood sugars show significant fluctuation. Increase Levemir to 60 units twice a day. Continue Accu-Cheks with SSI. November 04. Blood sugars acceptable. Continue present Rx. November 09. Accu-Cheks reviewed and show significant fluctuation. Continue pre sent Rx. Qualifiers: Diabetes mellitus shelter insulin use: with bed bug exterminator use Diabetes mellitus complication status: with hyperglycemia Qualified Code(s): E11.65 - Type 2 diabetes mellitus with hyperglycemia; Z79.4 - watermelon inspector (current) use of insulin (4) Cholelithiasis Current Visit: No Status: Chronic Assessment and plan: October 29. Follow-up with surgeon as outpatient. Qualifiers: Cholelithiasis location: gallbladder Cholecystitis presence: without karel cystitis Biliary obstruction: without biliary obstruction Qualified Code(s): K80.20 - Calculus of gallbladder without cholecystitis without obstruction (5) Chronic back pain Current Visit: No Status: Chronic Assessment and plan: October 29. Continue tramadol as needed. Qualifiers: Back pain location: low back pain Back pain laterality: bilateral Sciatica presence: without sciatica Qualified Code(s): M54.5 - Low back pain; G89.29 - Other chronic pain (6) UTI (urinary tract infection) Current Visit: Yes Status: Acute Assessment and plan: October 29. Continue nitrofurantoin and Cefdinir with lactobacillus through 11/01/2018. November 01. Cefdinir has been discontinued. DC nitrofurantoin and lactobacillus today. Qualifiers: Urinary tract infection type: acute cystitis Hematuria presence: with hematuria Qualified Code(s): N30.01 - Acute cystitis with hematuria - Subjective Interval history: October 29. She reports feeling tired today after having gone to the bathroom for BM several times during the night. November 01. She has no complaints today except she is having significant diarrhea from the lactulose. She was seen by Dr. Johnson over the weekend for elevated blood sugars. She is now on Levemir 55 units twice a day and Accu-Cheks with SSI. November 04. She has no new complaints. November 07. She has no new complaints. November 09. She has no new complaints. - Constitutional Vitals: Temp Pulse Resp BP Pulse Ox 98.5 F 62 20 141/78 95 11/09/18 06:23 11/09/18 06:23 11/09/18 06:23 11/09/18 06:23 11/09/18 06:23 Exam: She is lying in bed resting comfortably and appears in no acute distress. Her affect is bright and cheerful. I reviewed her medications and lab results. She reports her stools are soft but she is not having excessive diarrhea. Internal Medicine: Result - Labs CBC & Chem 7: 11/02/18 06:51 11/02/18 06:51 Consult Discharge Plan - Plan Referrals: Cesar Terry MD [Primary Care Provider] - 1 week
[2018-11-09] MEDS: traMADol 50 MG TABLET PO PRN (18:39)
[2018-11-10] MEDS: traMADol 50 MG TABLET PO PRN ×3 (00:50→20:24)
[2018-11-10] MEDS: Lactulose Oral Soln 20 GM/30 ML UDC PO SCH ×2 (06:29→16:11)
[2018-11-10] MEDS: Fenofibrate 54 MG TABLET PO SCH (08:50)
[2018-11-10] MEDS: Insulin LISPRO 300 UNITS/3 ML VIAL SQ SCH ×4 (08:51→20:24)
[2018-11-10] MEDS: Insulin DETEMIR 100 UNIT/ML X5UNITS SQ SCH ×2 (08:51→20:24)
[2018-11-10] MEDS: Torsemide 20 MG TABLET PO SCH (08:51)
[2018-11-10] MEDS: Cholecalciferol (D-3) 1,000 UNIT (25MCG) TABLET PO SCH (08:51)
[2018-11-10] MEDS: Alirocumab [Praluent Pen] 75 MG SQ SCH (20:24)
[2018-11-11] MEDS: traMADol 50 MG TABLET PO PRN (04:18)
[2018-11-11] MEDS: Lactulose Oral Soln 20 GM/30 ML UDC PO SCH (06:15)
[2018-11-11 07:10] VITALS: BP 120/54
[2018-11-11] MEDS: Insulin LISPRO 300 UNITS/3 ML VIAL SQ SCH ×2 (08:09→12:09)
[2018-11-11] MEDS: Cholecalciferol (D-3) 1,000 UNIT (25MCG) TABLET PO SCH (09:23)
[2018-11-11] MEDS: Fenofibrate 54 MG TABLET PO SCH (09:23)
[2018-11-11] MEDS: Torsemide 20 MG TABLET PO SCH (09:23)
[2018-11-11] MEDS: Insulin DETEMIR 100 UNIT/ML X5UNITS SQ SCH (09:23)
--- NOTE | 2018-11-11 11:14 | Discharge Summary ---
Date of Encounter: 11/11/18 Time of Encounter: 11:05 - Discharge Diagnosis (1) Hepatic encephalopathy Priority: Primary Status: Acute (2) HTN (hypertension) Priority: Secondary Status: Chronic Qualifiers: Hypertension type: essential hypertension Qualified Code(s): I10 - Essential (primary) hypertension (3) DM type 2 (diabetes mellitus, type 2) Priority: Secondary Status: Chronic Qualifiers: Diabetes mellitus chcf insulin use: with chcf use Diabetes mellitus complication status: with hyperglycemia Qualified Code(s): E11.65 - Type 2 diabetes mellitus with hyperglycemia; Z79.4 - long-term (current) use of insulin (4) Cholelithiasis Priority: Secondary Status: Chronic Qualifiers: Cholelithiasis location: gallbladder Cholecystitis presence: without cholecystitis Biliary obstruction: without biliary obstruction Qualified Code(s): K80.20 - Calculus of gallbladder without cholecystitis without obstruction (5) Chronic back pain Priority: Secondary Status: Chronic Qualifiers: Back pain location: low back pain Back pain laterality: bilateral Sciatica presence: without sciatica Qualified Code(s): M54.5 - Low back pain; G89.29 - Other chronic pain (6) UTI (urinary tract infection) Priority: Secondary Status: Resolved Qualifiers: Urinary tract infection type: acute cystitis Hematuria presence: with hematuria Qualified Code(s): N30.01 - Acute cystitis with hematuria Hospital course: Ms. Rodriguez is a 73 year old female who was hospitalized at [facility] October 21- after admission for altered mental status. 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 She was placed on lactulose. CT scan did not show ascites. Ammonia level showed fluctuation but continued elevation. Viral hepatitis profile screen was negative. Additional workup by GI showed elevated IgA but no additional significant abnormalities. She was discharged to [facility] swing bed for ongoing care needs. Initial orders were written by the discharging physicians at [facility]. I saw her October 28 and performed a swing bed history and physical. Lactulose dose was reduced to 20 g twice a day due to excessive diarrhea. Her mental status remained satisfactory at this dose and will be continued at discharge. Basal insulin was increased to 60 units twice a day. Accu-Cheks with SSI were done and she required only small doses of NovoLog. She will continue this regimen at home. She completed the course of antibiotics UTI without symptomatic recurrence. On November 11 arrangements were complete for her to be discharged home. She will follow with her PCP Dr. Cesar Terry within 1 week. She can follow with a surgeon as outpatient for further evaluation for cholelithiasis and gallbladder wall thickening. - Time Spent with Patient Total time spent providing and/or coordinating discharge services: - Discharge Medications Prescriptions: New Lactulose 20 gm PO 0700,1500 #60 udc Continued Cholecalciferol (D-3) [Vitamin D] 1,000 unit PO DAILY Ranitidine HCl [Heartburn Relief] 150 mg PO BID PRN PRN Reason: Heartburn Escitalopram [Lexapro] 20 mg PO DAILY Ferrous Fumarate [Ferrocite] 324 mg PO DAILY Guaifenesin [Mucus Relief] 400 mg PO Q12H PRN PRN Reason: Congestion Insulin LISPRO [Humalog Kwikpen U-100] 40 - 46 unit SQ TID Tramadol HCl [Ultram] 50 mg PO Q6H PRN 3 Days #10 tablet PRN Reason: Pain Esomeprazole Magnesium [Nexium] 40 mg PO DAILY Clopidogrel Bisulfate [Plavix] 75 mg PO DAILY Alirocumab [Praluent Pen] 75 mg SQ Q2W Potassium Chloride [K-Tab ER] 20 meq PO BID Fenofibrate,Micronized [Fenofibrate] 200 mg PO DAILY Torsemide [Demadex] 20 mg PO DAILY Atenolol [Tenormin] 50 mg PO DAILY Benzonatate [Tessalon] 200 mg PO Q8HR PRN PRN Reason: Cough Changed Insulin Glargine,Hum.rec.anlog [Basaglar Kwikpen U-100] 60 unit SQ BID #0 Discontinued Loratadine [Allergy Relief] 10 mg PO HS Lactulose 20 gm PO QID udc Nitrofurantoin (BID) [Macrobid] 100 mg PO BID 5 Days #10 capsule Cefdinir [Omnicef] 300 mg PO BID 4 Days #8 capsule Home Medications: Alirocumab [Praluent Pen] 75 mg SQ Q2W 10/21/18 [History] Atenolol [Tenormin] 50 mg PO DAILY 10/21/18 [History] Benzonatate [Tessalon] 200 mg PO Q8HR PRN 10/21/18 [History] Clopidogrel Bisulfate [Plavix] 75 mg PO DAILY 10/21/18 [History] Esomeprazole Magnesium [Nexium] 40 mg PO DAILY 10/21/18 [History] Fenofibrate,Micronized [Fenofibrate] 200 mg PO DAILY 10/21/18 [History] Potassium Chloride [K-Tab ER] 20 meq PO BID 10/21/18 [History] Torsemide [Demadex] 20 mg PO DAILY 10/21/18 [History] Cholecalciferol (D-3) [Vitamin D] 1,000 unit PO DAILY 10/22/18 [History] Escitalopram [Lexapro] 20 mg PO DAILY 10/22/18 [History] Ranitidine HCl [Heartburn Relief] 150 mg PO BID PRN 10/22/18 [History] Ferrous Fumarate [Ferrocite] 324 mg PO DAILY 10/25/18 [History] Guaifenesin [Mucus Relief] 400 mg PO Q12H PRN 10/25/18 [History] Insulin LISPRO [Humalog Kwikpen U-100] 40 - 46 unit SQ TID 10/25/18 [History] Tramadol HCl [Ultram] 50 mg PO Q6H PRN 3 Days #10 tablet 10/27/18 [Rx] Insulin Glargine,Hum.rec.anlog [Basaglar Kwikpen U-100] 60 unit SQ BID #0 11/11/18 [Rx] Lactulose 20 gm PO 0700,1500 #60 udc 11/11/18 [Rx] Allergies/Adverse Reactions: Allergy/AdvReac Type Severity Reaction Status Date / Time codeine AdvReac Nausea Verified 10/21/18 21:33 rosuvastatin [From Crestor] AdvReac See Verified 10/21/18 21:33 Comments Sulfa (Sulfonamide AdvReac Cough Verified 10/21/18 21:33 Antibiotics) Date of admission: 10/27/18 19:42 Primary care physician: Cesar Terry MD Consults: 10/27/18 20:23 Consult to Occupational Therapy [CONS] Routine Comment: To evaluate, develop, and implement plan of care. Reason for Consult: To evaluate, develop, and implement plan of care. Does patient have active BEDREST order?: No Is patient medically & hemodynamically stable?: Yes Patient assessed for mobility or mobilized this visit?: Yes Consult to Physical Therapy [CONS] Routine Comment: To evaluate, develop, and implement plan of care. Reason for Consult: To evaluate, develop, and implement plan of care. Does patient have active BEDREST order?: No Is patient medically & hemodynamically stable?: Yes Patient assessed for mobility or mobilized this visit?: Yes Consult to Document Control Supervisor [CONS] Routine Reason for SW Consult: Discharge planning - Constitutional Vitals: Temp Pulse Resp BP Pulse Ox 97.9 F 59 14 120/54 93 11/11/18 07:09 11/11/18 07:09 11/11/18 07:09 11/11/18 07:09 11/11/18 07:09 - Patient Status Disposition: Home, Self-Care - Discharge Instructions Follow Up With: Cesar Terry MD [Primary Care Provider] - 1 week - Diet and Activity Activity: as per physical therapy Diet: advance to your usual diet
--- NOTE | 2018-11-11 13:44 | Physician Discharge Referral ---
Home Health/Hosp Referral Info Transfer to: Home Health Attending Provider: Devon Provider in Charge Post Discharge: PCP (Cesar Terry M.D.) - Diagnosis (1) Hepatic encephalopathy Priority: Primary Status: Acute (2) HTN (hypertension) Priority: Secondary Status: Chronic (3) DM type 2 (diabetes mellitus, type 2) Priority: Secondary Status: Chronic (4) Cholelithiasis Priority: Secondary Status: Chronic (5) Chronic back pain Priority: Secondary Status: Chronic (6) UTI (urinary tract infection) Priority: Secondary Status: Resolved - Respiratory Orders Smoking Cessation: Smoking cessation has been advised. For more information, call the [place] Tobacco Quit Line at 9-760-BZAG-NOW. - Diet/Nutrition Diet/Nutrition Orders: Regular - Activity Activity Orders: Walker - Services Needed Following services are medically necessary services: Nursing, Home Health Aide, Physical Therapy, Occupational Therapy - Transfer Medications Prescriptions: Lactulose 20 gm PO 0700,1500 #60 c Home Medications: Alirocumab [Praluent Pen] 75 mg SQ Q2W 10/21/18 [History] Atenolol [Tenormin] 50 mg PO DAILY 10/21/18 [History] Benzonatate [Tessalon] 200 mg PO Q8HR PRN 10/21/18 [History] Clopidogrel Bisulfate [Plavix] 75 mg PO DAILY 10/21/18 [History] Esomeprazole Magnesium [Nexium] 40 mg PO DAILY 10/21/18 [History] Fenofibrate,Micronized [Fenofibrate] 200 mg PO DAILY 10/21/18 [History] Potassium Chloride [K-Tab ER] 20 meq PO BID 10/21/18 [History] Torsemide [Demadex] 20 mg PO DAILY 10/21/18 [History] Cholecalciferol (D-3) [Vitamin D] 1,000 unit PO DAILY 10/22/18 [History] Escitalopram [Lexapro] 20 mg PO DAILY 10/22/18 [History] Ranitidine HCl [Heartburn Relief] 150 mg PO BID PRN 10/22/18 [History] Ferrous Fumarate [Ferrocite] 324 mg PO DAILY 10/25/18 [History] Guaifenesin [Mucus Relief] 400 mg PO Q12H PRN 10/25/18 [History] Insulin LISPRO [Humalog Kwikpen U-100] 40 - 46 unit SQ TID 10/25/18 [History] Tramadol HCl [Ultram] 50 mg PO Q6H PRN 3 Days #10 tablet 10/27/18 [Rx] Insulin Glargine,Hum.rec.anlog [Basaglar Noelikpen U-100] 60 unit SQ BID #0 11/11/18 [Rx] Lactulose 20 gm PO 0700,1500 #60 udc 11/11/18 [Rx] Allergies/Adverse Reactions: Allergy/AdvReac Type Severity Reaction Status Date / Time codeine AdvReac Nausea Verified 10/21/18 21:33 rosuvastatin [From Crestor] AdvReac See Verified 10/21/18 21:33 Comments Sulfa (Sulfonamide AdvReac Cough Verified 10/21/18 21:33 Antibiotics) Certification: Further, I certify that my clinical findings support that this patient is homebound (i.e. absences from home require considerable and taxing effort and are for medical reasons or episcopalian services or infrequently or short duration when for other reasons) because: Homebound Reason: Leaving home requires considerable and taxing effort due to condition (Hepatic encephalopathy, impaired walking ability.) Attestation: My signature below is to certify that this patient is under my care and that I, or nurse practitioner, or a physician's engineer assistant working with me, has a [id number] encounter with this patient.
== END 2018-11-11 13:32 | disposition home or self-care (01) | DRG 442 ==
LOC: INPPIK 19:42
PROVIDERS: ADMIT Internal Medicine; ATTEND Internal Medicine

== ENCOUNTER 2018-12-14 13:00 | Inpatient (IN) ==
[2018-12-14] MEDS ORDERED: PRALUENT 75 MG SQ SCH (14:15)
[2018-12-14] MEDS ORDERED: NON-FORMULARY MEDICATION 1 EACH EACH (Insulin Lispro [Humalog Kwikpen U-100] 0 UNIT) SQ SCH (15:00)
[2018-12-14] MEDS ORDERED: *HR* Dextrose 50 % in Water (Syg) 50 ML SYRINGE IVP PRN (17:09)
[2018-12-14] MEDS ORDERED: Dextrose Gel 15 GM/37.5 ML TUBE PO PRN ×2 (17:09)
[2018-12-14] MEDS ORDERED: D5% in Water 1,000 ML IVC PRN (17:09)
[2018-12-14] MEDS: Lactulose Oral Soln 20 GM/30 ML UDC PO SCH ×2 (17:26→20:20)
[2018-12-14] MEDS: Insulin LISPRO 300 UNITS/3 ML VIAL SQ SCH (18:34)
[2018-12-14] MEDS: Famotidine 20 MG TABLET PO SCH (20:20)
[2018-12-14] MEDS ORDERED: Loratadine 10 MG TABLET PO SCH (21:00)
[2018-12-14] MEDS ORDERED: Insulin DETEMIR 100 UNIT/ML X5UNITS SQ SCH (21:00)
[2018-12-14] MEDS ORDERED: Mag Hydrox/Al Hydrox/Simeth 30 ML UDC PO ONE (22:31)
[2018-12-15] MEDS ORDERED: Insulin LISPRO 300 UNITS/3 ML VIAL SQ SCH (07:30)
[2018-12-15] MEDS: Insulin LISPRO 300 UNITS/3 ML VIAL SQ SCH ×3 (08:57→17:26)
[2018-12-15] MEDS: Lactulose Oral Soln 20 GM/30 ML UDC PO SCH ×4 (08:57→20:12)
[2018-12-15] MEDS: Cholecalciferol (D-3) 1,000 UNIT (25MCG) TABLET PO SCH (08:58)
[2018-12-15] MEDS: Insulin DETEMIR 100 UNIT/ML X5UNITS SQ SCH ×2 (08:58→21:59)
--- NOTE | 2018-12-15 15:15 | Internal Med History&Physical ---
Date of Encounter: 12/15/18 Time of Encounter: 14:45 Assessment and Plan (1) Hepatic encephalopathy Current visit: No Status: Acute Continue lactulose. Rifaximin will be restarted. (2) HTN (hypertension) Current visit: No Status: Chronic Continue Coreg and monitor blood pressure. Qualifiers: Hypertension type: essential hypertension Qualified Code(s): I10 - Essential (primary) hypertension (3) DM type 2 (diabetes mellitus, type 2) Current visit: No Status: Chronic Hemoglobin A1c was 8.4% on 10/22/2018. Continue Levemir and Accu-Cheks with SSI. Qualifiers: Diabetes mellitus mcfp insulin use: with mcfp use Diabetes mellitus complication status: with hyperglycemia Qualified Code(s): E11.65 - Type 2 diabetes mellitus with hyperglycemia; Z79.4 - terminal operations supervisor (current) use of insulin (4) Chronic back pain Current visit: No Status: Chronic Will order Tylenol prn not to exceed 3 g per day. Qualifiers: Back pain location: low back pain Back pain laterality: bilateral Sciatica presence: without sciatica Qualified Code(s): M54.5 - Low back pain; G89.29 - Other chronic pain (5) Hypokalemia Current visit: No Status: Resolved Resolved in acute-care. Labs will be monitored. Internal Medicine - H&P: HPI Chief complaint: Hepatic encephalopathy Admitted From: Hospital to Hospital Transfer Plans for Post Hospital Care: Home History of present illness: Ms. Rodriguez is a 73 year old female who was discharged to [facility] swing bed after a December [address] [facility] where she presented with hepatic encephalopathy and YUAN. She was given rifaximin and lactulose with improvement in mental status. Nephrology was consulted and medication/fluids were adjusted with improvement in renal function. She was discharged to swing bed for rehabilitation therapy prior to returning to independent living. She was hospitalized in [facility] swing bed October 28-November [address] [facility] stay for HE. Cirrhosis is felt likely due to CASTRO. Abdominal/pelvic CT scan 12/08/2018 showed no acute intra-abdominal pathology with cholelithiasis and cirrhotic morphology of the liver. She denies alcohol use. Surgery was consulted during her October [facility] hospitalization did not recommend cholecystectomy. GI history is negative otherwise for known disorders of her liver or exocrine pancreas. Past Med Surg Social Fam HX - Past Medical History Medical history: COPD, CVA, diabetes, GERD, hypertension, other Additional medical history: CVA 2017 Psychiatric history: depression - Past Surgical History Additional surgical history: R total shoulder replacement. CTR right hand. right hand surgery trigger finger. dental - Social History Smoking Status: Never smoker Smokeless Tobacco Status: No Alcohol use: none Drug use: none - Family History Father Adopted: No Family Member Ethnicity: Non- Living Status: Hx Family Cardiac Disorders: Yes Hx Family Respiratory Disorders: No Hx Family Cancer: No Hx Family GI Disorders: No Hx Family Genitourinary Disorders: No Hx Family Endocrine Disorder: No Hx Family Musculoskeletal Disorders: No Hx Family Neuromuscular Disorders: No Hx Family Neurologic Disorders: No Hx Family HEENT Disorders: No Hx Family Autoimmune Disorders: No Hx Family Reproductive Disorders: No Hx Family Psychosocial Disorders: No Hx Family Medical Disorders: No Mother Adopted: [place]: Tanja Austin Age: 96 Family Member Ethnicity: Non- Living Status: Age at : 96 Cause of : pneumonia- lung Cancer Hx Family Cardiac Disorders: No Hx Family Respiratory Disorders: No Hx Family Cancer: Yes Hx Family GI Disorders: No Hx Family Genitourinary Disorders: No Hx Family Endocrine Disorder: Yes (diabetes) Hx Family Musculoskeletal Disorders: No Hx Family Neuromuscular Disorders: No Hx Family Neurologic Disorders: No Hx Family HEENT Disorders: No Hx Family Autoimmune Disorders: No Hx Family Reproductive Disorders: No Hx Family Psychosocial Disorders: No Hx Family Medical Disorders: No Internal Medicine - H&P: Meds Alirocumab [Praluent Pen] 75 mg SQ Q2W 10/21/18 [History] Clopidogrel Bisulfate [Plavix] 75 mg PO DAILY 10/21/18 [History] Esomeprazole Magnesium [Nexium] 40 mg PO DAILY 10/21/18 [History] Cholecalciferol (D-3) [Vitamin D] 1,000 unit PO DAILY 10/22/18 [History] Escitalopram [Lexapro] 20 mg PO QPM 10/22/18 [History] Ranitidine HCl [Heartburn Relief] 150 mg PO HS 10/22/18 [History] Guaifenesin [Mucus Relief] 400 mg PO Q12H PRN 10/25/18 [History] Insulin LISPRO [Humalog Kwikpen U-100] 10 - 16 unit SQ TID 10/25/18 [History] Insulin Glargine,Hum.rec.anlog [Jaydenagljuan f [place] U-100] 50 unit SQ BID 12/08/18 [History] Loratadine [Claritin] 10 mg PO HS 12/08/18 [History] Ferrous Sulfate [Iron] 325 mg PO BID 12/09/18 [History] Carvedilol [Coreg] 6.25 mg PO BIDWM #60 tablet 12/14/18 [Rx] Lactulose 20 gm PO QID #120 udc 12/14/18 [Rx] Allergy/AdvReac Type Severity Reaction Status Date / Time lisinopril Allergy See Verified 12/08/18 15:55 Comments losartan Allergy See Verified 12/08/18 15:55 Comments codeine AdvReac Nausea Verified 10/21/18 21:33 rosuvastatin [From Crestor] AdvReac See Verified 10/21/18 21:33 Comments Sulfa (Sulfonamide AdvReac Cough Verified 10/21/18 21:33 Antibiotics) All Systems PM: A 10-system review of systems was performed and is negative for pertinent findings except as documented above in the HPI. Review of systems: Review of systems from her October 2018 [facility] hospitalization were reviewed and revised as below. Gen.: Her weight has decreased from 110.5 kg on 10/27/2018 to present weight of 97.522 kg. Cardiovascular: She reports hypertension and claims OR approximately 2005. Regadenoson EST 10/06/2017 showed LVEF of 70% and no EKG or perfusion evidence of ischemia. She denies history of heart failure DVT or pulmonary embolus. Echocardiogram 12/09/2018 showed LVEF of 60%. No significant valvular abnormality was seen. Interventricular septum and posterior wall thickness measurements were normal at 1.00 and 0.70 cm respectively. E/A ratio is 0.8. Respiratory: She is a lifelong nonsmoker and denies chronic lung disease GI: As per history of present illness : She had right hydronephrosis seen on CT scan at previous [facility] admission. Urology was consulted and did not recommend specific intervention. She denies other disorders of her kidney or bladder. 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 Head CT 10/21/2018 showed chronic ischemic changes including remote right occipital infarct. She denies seizures. Endocrine: She reports diagnosis of diabetes made approximately one year ago. She has hyperlipidemia but denies known thyroid disease Hematology/oncology: She denies blood disorders cancers or anemia Psychiatric: She denies anxiety depression or other mental health issues Musko skeletal: She has DJD and chronic low back pain. She denies known gout. - Constitutional Vitals: Temp Pulse Resp BP Pulse Ox 98.2 F 86 16 143/50 95 12/15/18 06:42 12/15/18 06:42 12/15/18 06:42 12/15/18 06:42 12/15/18 06:42 Exam: Gen.: She is a well-developed overweight female lying in bed who appears in no severe distress at present time HEENT: Head is atraumatic and normocephalic. Eyes: EOMI. There is no scleral icterus. Mouth: Mucosa is moist. Neck: Supple and nontender. There is no thyromegaly or adenopathy noted. Heart: Regular without murmurs gallops or ectopics Lungs: No wheezes or crackles are heard. Abdomen: Soft and nontender. No masses or guarding are noted. Extremities: There is no cyanosis edema or clubbing noted. Dorsalis pedis and posterior tibial pulses are trace to 1+ palpable bilaterally. Neurologic: Mental status: She is lethargic but awakens and answers questions appropriately. Cranial nerves: Smile is symmetric. Forehead wrinkles bilaterally. Tongue protrudes midline. EOMI. Motor: There is no pronator drift. Cerebellar: Finger to nose is intact bilaterally. Skin: Warm and dry
[2018-12-15] MEDS: Famotidine 20 MG TABLET PO SCH (20:12)
[2018-12-16] MEDS: Insulin LISPRO 300 UNITS/3 ML VIAL SQ SCH ×3 (08:56→17:25)
[2018-12-16] MEDS: Lactulose Oral Soln 20 GM/30 ML UDC PO SCH ×4 (08:56→19:52)
[2018-12-16] MEDS: Cholecalciferol (D-3) 1,000 UNIT (25MCG) TABLET PO SCH (08:56)
[2018-12-16] MEDS: Insulin DETEMIR 100 UNIT/ML X5UNITS SQ SCH ×2 (08:57→21:09)
[2018-12-16 09:02] LABS: % Iron Saturation 33 % (15-50); Iron 92 mcg/dL (50-170); Transferrin 198 mg/dL (203-362)
[2018-12-16 09:21] LABS: Ferritin 97 ng/mL (10-120)
[2018-12-16] MEDS ORDERED: Acetaminophen 325 MG TABLET PO PRN (17:14)
--- NOTE | 2018-12-16 17:25 | Internal Med Progress Note ---
Date of Encounter: 12/16/18 Time of Encounter: 17:15 - Assessment and plan (1) Hepatic encephalopathy Current Visit: No Status: Acute Assessment and plan: December 16. Continue lactulose and rifaximin. (2) HTN (hypertension) Current Visit: No Status: Chronic Assessment and plan: December 16. Continue Coreg. Qualifiers: Hypertension type: essential hypertension Qualified Code(s): I10 - Essential (primary) hypertension (3) DM type 2 (diabetes mellitus, type 2) Current Visit: No Status: Chronic Assessment and plan: December 16. Hemoglobin A1c was 8.4% on 10/22/2018. Blood sugars are above desirable range. Increase Levemir to 55 units twice a day and continue Accu- Cheks with SSI. Qualifiers: Diabetes mellitus intermodal customer service insulin use: with intermodal customer service use Diabetes mellitus complication status: with hyperglycemia Qualified Code(s): E11.65 - Type 2 diabetes mellitus with hyperglycemia; Z79.4 - custodial (current) use of insulin (4) Chronic back pain Current Visit: No Status: Chronic Assessment and plan: December 16. Continue prn Tylenol Qualifiers: Back pain location: low back pain Back pain laterality: bilateral Sciatica presence: without sciatica Qualified Code(s): M54.5 - Low back pain; G89.29 - Other chronic pain (5) Hypokalemia Current Visit: No Status: Resolved Assessment and plan: December 16. Continue to monitor. - Subjective Interval history: December 16. She has no new complaints. - Constitutional Vitals: Temp Pulse Resp BP Pulse Ox 98.3 F 89 18 148/77 94 12/16/18 08:22 12/16/18 08:22 12/16/18 08:22 12/16/18 08:22 12/16/18 08:22 Exam: She is resting comfortably in bed and appears in no acute distress. Her affect is bright and cheerful. I reviewed her medications and lab results. Consult Discharge Plan - Plan Referrals: Cesar Terry MD [Primary Care Provider] - 1 week
[2018-12-16] MEDS: Famotidine 20 MG TABLET PO SCH (19:52)
[2018-12-17] MEDS: Lactulose Oral Soln 20 GM/30 ML UDC PO SCH ×4 (09:24→20:10)
[2018-12-17] MEDS: Insulin LISPRO 300 UNITS/3 ML VIAL SQ SCH ×3 (09:24→17:13)
[2018-12-17] MEDS: Cholecalciferol (D-3) 1,000 UNIT (25MCG) TABLET PO SCH (09:24)
[2018-12-17] MEDS: Insulin DETEMIR 100 UNIT/ML X5UNITS SQ SCH ×2 (09:25→20:11)
[2018-12-17] MEDS: Famotidine 20 MG TABLET PO SCH (20:10)
[2018-12-18] MEDS: Lactulose Oral Soln 20 GM/30 ML UDC PO SCH ×4 (07:55→22:22)
[2018-12-18] MEDS: Cholecalciferol (D-3) 1,000 UNIT (25MCG) TABLET PO SCH (07:56)
[2018-12-18] MEDS: Insulin LISPRO 300 UNITS/3 ML VIAL SQ SCH ×3 (07:57→17:53)
[2018-12-18] MEDS: Insulin DETEMIR 100 UNIT/ML X5UNITS SQ SCH ×2 (08:09→22:23)
[2018-12-18] MEDS: Famotidine 20 MG TABLET PO SCH (22:23)
[2018-12-19] MEDS: Cholecalciferol (D-3) 1,000 UNIT (25MCG) TABLET PO SCH (08:22)
[2018-12-19] MEDS: Lactulose Oral Soln 20 GM/30 ML UDC PO SCH ×4 (08:22→20:21)
[2018-12-19] MEDS: Insulin LISPRO 300 UNITS/3 ML VIAL SQ SCH ×3 (08:27→17:32)
[2018-12-19] MEDS: Insulin DETEMIR 100 UNIT/ML X5UNITS SQ SCH ×2 (08:29→20:22)
[2018-12-19] MEDS ORDERED: PRALUENT 75 MG SQ SCH (12:00)
--- NOTE | 2018-12-19 15:21 | Internal Med Progress Note ---
Date of Encounter: 12/19/18 Time of Encounter: 15:12 - Assessment and plan (1) Hepatic encephalopathy Current Visit: No Status: Acute Assessment and plan: December 16. Continue lactulose and rifaximin. (2) HTN (hypertension) Current Visit: No Status: Chronic Assessment and plan: December 16. Continue Coreg. Qualifiers: Hypertension type: essential hypertension Qualified Code(s): I10 - Essential (primary) hypertension (3) DM type 2 (diabetes mellitus, type 2) Current Visit: No Status: Chronic Assessment and plan: December 16. Hemoglobin A1c was 8.4% on 10/22/2018. Blood sugars are above desirable range. Increase Levemir to 55 units twice a day and continue Accu- Cheks with SSI. December 19. Blood sugars improved. Continue present Rx. Qualifiers: Diabetes mellitus remote computer terminal operator insulin use: with remote computer terminal operator use Diabetes mellitus complication status: with hyperglycemia Qualified Code(s): E11.65 - Type 2 diabetes mellitus with hyperglycemia; Z79.4 - ocean transportation intermediary (current) use of insulin (4) Chronic back pain Current Visit: No Status: Chronic Assessment and plan: December 16. Continue prn Tylenol Qualifiers: Back pain location: low back pain Back pain laterality: bilateral Sciatica presence: without sciatica Qualified Code(s): M54.5 - Low back pain; G89.29 - Other chronic pain (5) Hypokalemia Current Visit: No Status: Resolved Assessment and plan: December 16. Continue to monitor. (6) Hyperuricemia Current Visit: Yes Status: Acute Assessment and plan: December 19. Uric acid level was 18.2 on 12/09/2018. Recheck in a.m. - Subjective Interval history: December 16. She has no new complaints. December 19. She has no new complaints. She feels she is approaching her baseline functional status. - Constitutional Vitals: Temp Pulse Resp BP Pulse Ox 98.4 F 67 18 126/68 91 12/19/18 06:39 12/19/18 06:39 12/19/18 06:39 12/19/18 06:39 12/19/18 06:39 Exam: She is resting comfortably in bed and appears in no acute distress. Her affect is overall cheerful. She is appropriate in conversation. I reviewed her medications and lab results. Consult Discharge Plan - Plan Referrals: Cesar Terry MD [Primary Care Provider] - 1 week
[2018-12-19] MEDS: Famotidine 20 MG TABLET PO SCH (20:21)
[2018-12-20 04:11] LABS: Basophils % 0.3 %; Eosinophils # 0.2 K/mcL (0.0-0.6); Eosinophils % 4.2 %; Hematocrit 36.9 % (35.3-44.9); Hemoglobin 12.7 g/dL (11.5-15.4); Immature Granulocytes % 0.3 % (0-4); Lymphocytes # 1.5 K/mcL (0.6-4.6); Lymphocytes % 39.6 %; Mean Corpuscular HGB Conc 34.4 g/dL (31.6-35.5); Mean Corpuscular Hemoglobin 31.7 pg (28.0-33.3); Mean Platelet Volume 11.7 fL (9.4-12.4); Monocytes # 0.3 K/mcL (0.0-1.3); Monocytes % 8.9 %; Neutrophils # 1.8 K/mcL (1.6-8.9); Platelet Count 82 K/mcL (140-400); Red Blood Count 4.01 M/mcL (3.82-4.97); Red Cell Distribution Width 15.1 % (11.5-14.5); Segmented Neutrophils % 46.7 %; White Blood Count 3.8 K/mcL (4.3-11.1)
[2018-12-20 05:58] LABS: BUN/Creatinine Ratio 11 (6-26); Blood Urea Nitrogen 9 mg/dL (8-23); Carbon Dioxide 25 mEq/L (23-29); Chloride 109 mEq/L (98-107); Glucose 96 mg/dL (70-105); Osmolality,Calculated 285 (280-300); Potassium 3.5 mEq/L (3.5-5.1); Sodium 138 mEq/L (136-145); Uric Acid 5.4 mg/dL (2.3-7.6); eGFR For African Americans > 60 (> 60); eGFR For Non-African Americans > 60 (> 60)
[2018-12-20] MEDS: Insulin LISPRO 300 UNITS/3 ML VIAL SQ SCH ×3 (09:31→16:55)
[2018-12-20] MEDS: Cholecalciferol (D-3) 1,000 UNIT (25MCG) TABLET PO SCH (09:32)
[2018-12-20] MEDS: Lactulose Oral Soln 20 GM/30 ML UDC PO SCH ×4 (09:32→19:53)
[2018-12-20] MEDS: Insulin DETEMIR 100 UNIT/ML X5UNITS SQ SCH ×2 (11:00→21:00)
[2018-12-20] MEDS: Famotidine 20 MG TABLET PO SCH (19:53)
[2018-12-21] MEDS: Cholecalciferol (D-3) 1,000 UNIT (25MCG) TABLET PO SCH (09:34)
[2018-12-21] MEDS: Lactulose Oral Soln 20 GM/30 ML UDC PO SCH ×4 (09:34→20:25)
[2018-12-21] MEDS: Insulin DETEMIR 100 UNIT/ML X5UNITS SQ SCH ×2 (09:38→20:25)
[2018-12-21] MEDS: Insulin LISPRO 300 UNITS/3 ML VIAL SQ SCH ×3 (09:39→18:16)
[2018-12-21] MEDS: Famotidine 20 MG TABLET PO SCH (20:25)
[2018-12-22] MEDS: Insulin LISPRO 300 UNITS/3 ML VIAL SQ SCH ×3 (07:36→16:51)
[2018-12-22] MEDS: Cholecalciferol (D-3) 1,000 UNIT (25MCG) TABLET PO SCH (08:31)
[2018-12-22] MEDS: Insulin DETEMIR 100 UNIT/ML X5UNITS SQ SCH ×2 (08:31→21:00)
[2018-12-22] MEDS: Lactulose Oral Soln 20 GM/30 ML UDC PO SCH ×3 (08:31→16:51)
--- NOTE | 2018-12-22 17:47 | Internal Med Progress Note ---
Date of Encounter: 12/22/18 Time of Encounter: 17:40 - Assessment and plan (1) Hepatic encephalopathy Current Visit: No Status: Acute Assessment and plan: December 16. Continue lactulose and rifaximin. (2) HTN (hypertension) Current Visit: No Status: Chronic Assessment and plan: December 16. Continue Coreg. Qualifiers: Hypertension type: essential hypertension Qualified Code(s): I10 - Essential (primary) hypertension (3) DM type 2 (diabetes mellitus, type 2) Current Visit: No Status: Chronic Assessment and plan: December 16. Hemoglobin A1c was 8.4% on 10/22/2018. Blood sugars are above desirable range. Increase Levemir to 55 units twice a day and continue Accu-Ch eks with SSI. December 19. Blood sugars improved. Continue present Rx. December 22. Blood sugars stable. Continue present Rx. Qualifiers: Diabetes mellitus halfway insulin use: with roasterman use Diabetes mellitus complication status: with hyperglycemia Qualified Code(s): E11.65 - Type 2 diabetes mellitus with hyperglycemia; Z79.4 - penitentiary (current) use of insulin (4) Chronic back pain Current Visit: No Status: Chronic Assessment and plan: December 16. Continue prn Tylenol Qualifiers: Back pain location: low back pain Back pain laterality: bilateral Sciatica presence: without sciatica Qualified Code(s): M54.5 - Low back pain; G89.29 - Other chronic pain (5) Hypokalemia Current Visit: No Status: Resolved Assessment and plan: December 16. Continue to monitor. (6) Hyperuricemia Current Visit: Yes Status: Acute Assessment and plan: December 19. Uric acid level was 18.2 on 12/09/2018. Recheck in a.m. December 22. Uric acid level WNL at 5.4. - Subjective Interval history: December 16. She has no new complaints. December 19. She has no new complaints. She feels she is approaching her baseline functional status. December 22. She has no new complaints. - Constitutional Vitals: Temp Pulse Resp BP Pulse Ox 98.5 F 77 18 145/77 95 12/22/18 06:45 12/22/18 06:45 12/22/18 06:45 12/22/18 06:45 12/22/18 06:45 Exam: She is sitting in chair at bedside resting comfortably. Her affect is bright and cheerful. I reviewed her medications and lab results. Internal Medicine: Result - Labs CBC & Chem 7: 12/20/18 02:45 12/20/18 02:45 Consult Discharge Plan - Plan Referrals: Cesar Terry MD [Primary Care Provider] - 1 week
[2018-12-22] MEDS: Famotidine 20 MG TABLET PO SCH (21:00)
[2018-12-23] MEDS: Lactulose Oral Soln 20 GM/30 ML UDC PO SCH ×5 (01:18→21:38)
[2018-12-23] MEDS: Insulin DETEMIR 100 UNIT/ML X5UNITS SQ SCH ×2 (09:50→21:40)
[2018-12-23] MEDS: Cholecalciferol (D-3) 1,000 UNIT (25MCG) TABLET PO SCH (09:50)
[2018-12-23] MEDS: Insulin LISPRO 300 UNITS/3 ML VIAL SQ SCH ×3 (09:50→16:26)
[2018-12-23] MEDS: Famotidine 20 MG TABLET PO SCH (21:38)
[2018-12-24] MEDS: Insulin LISPRO 300 UNITS/3 ML VIAL SQ SCH ×3 (07:32→16:56)
[2018-12-24] MEDS: Lactulose Oral Soln 20 GM/30 ML UDC PO SCH ×4 (08:30→21:11)
[2018-12-24] MEDS: Cholecalciferol (D-3) 1,000 UNIT (25MCG) TABLET PO SCH (08:30)
[2018-12-24] MEDS: Insulin DETEMIR 100 UNIT/ML X5UNITS SQ SCH ×2 (08:39→21:11)
--- NOTE | 2018-12-24 16:24 | Internal Med Progress Note ---
Date of Encounter: 12/24/18 Time of Encounter: 16:16 - Assessment and plan (1) Hepatic encephalopathy Current Visit: No Status: Acute Assessment and plan: December 16. Continue lactulose and rifaximin. (2) HTN (hypertension) Current Visit: No Status: Chronic Assessment and plan: December 16. Continue Coreg. December 24. Blood pressure overall satisfactory. Continue Coreg. Qualifiers: Hypertension type: essential hypertension Qualified Code(s): I10 - Essential (primary) hypertension (3) DM type 2 (diabetes mellitus, type 2) Current Visit: No Status: Chronic Assessment and plan: December 16. Hemoglobin A1c was 8.4% on 10/22/2018. Blood sugars are above desirable range. Increase Levemir to 55 units twice a day and continue Accu- Cheks with SSI. December 19. Blood sugars improved. Continue present Rx. December 22. Blood sugars stable. Continue present Rx. December 24. Blood sugars satisfactory on Levemir 50 units twice a day. Continue Accu-Cheks with SSI. Qualifiers: Diabetes mellitus detention insulin use: with detention use Diabetes mellitus complication status: with hyperglycemia Qualified Code(s): E11.65 - Type 2 diabetes mellitus with hyperglycemia; Z79.4 - rodent exterminator (current) use of insulin (4) Chronic back pain Current Visit: No Status: Chronic Assessment and plan: December 16. Continue prn Tylenol Qualifiers: Back pain location: low back pain Back pain laterality: bilateral Sciatica presence: without sciatica Qualified Code(s): M54.5 - Low back pain; G89.29 - Other chronic pain (5) Hypokalemia Current Visit: No Status: Resolved Assessment and plan: December 16. Continue to monitor. (6) Hyperuricemia Current Visit: Yes Status: Acute Assessment and plan: December 19. Uric acid level was 18.2 on 12/09/2018. Recheck in a.m. December 22. Uric acid level WNL at 5.4. - Subjective Interval history: December 16. She has no new complaints. December 19. She has no new complaints. She feels she is approaching her baseline functional status. December 22. She has no new complaints. December 24. She has no new complaints. - Constitutional Vitals: Temp Pulse Resp BP Pulse Ox 98.2 F 78 22 161/78 96 12/24/18 07:07 12/24/18 07:07 12/24/18 07:07 12/24/18 07:07 12/24/18 07:07 Exam: She is resting comfortably in bed and appears in no acute distress. Her affect is overall cheerful. She is appropriate in conversation. I reviewed her medications and lab results. Internal Medicine: Result - Labs CBC & Chem 7: 12/20/18 02:45 12/20/18 02:45 Consult Discharge Plan - Plan Referrals: Cesar Terry MD [Primary Care Provider] - 1 week
[2018-12-24] MEDS: Famotidine 20 MG TABLET PO SCH (21:11)
[2018-12-25] MEDS: Insulin LISPRO 300 UNITS/3 ML VIAL SQ SCH ×3 (08:01→17:26)
[2018-12-25] MEDS: Lactulose Oral Soln 20 GM/30 ML UDC PO SCH ×4 (08:55→21:23)
[2018-12-25] MEDS: Insulin DETEMIR 100 UNIT/ML X5UNITS SQ SCH ×2 (08:55→21:24)
[2018-12-25] MEDS: Cholecalciferol (D-3) 1,000 UNIT (25MCG) TABLET PO SCH (08:55)
[2018-12-25] MEDS: Famotidine 20 MG TABLET PO SCH (21:23)
[2018-12-26] MEDS: Lactulose Oral Soln 20 GM/30 ML UDC PO SCH ×4 (07:55→21:31)
[2018-12-26] MEDS: Insulin LISPRO 300 UNITS/3 ML VIAL SQ SCH ×3 (07:55→16:49)
[2018-12-26] MEDS: Insulin DETEMIR 100 UNIT/ML X5UNITS SQ SCH ×2 (07:55→21:32)
[2018-12-26] MEDS: Cholecalciferol (D-3) 1,000 UNIT (25MCG) TABLET PO SCH (07:55)
--- NOTE | 2018-12-26 11:52 | Internal Med Progress Note ---
Date of Encounter: 12/26/18 Time of Encounter: 11:45 - Assessment and plan (1) Hepatic encephalopathy Current Visit: No Status: Acute Assessment and plan: December 16. Continue lactulose and rifaximin. December 26. Continue present Rx. Anticipate discharge home tomorrow. (2) HTN (hypertension) Current Visit: No Status: Chronic Assessment and plan: December 16. Continue Coreg. December 24. Blood pressure overall satisfactory. Continue Coreg. Qualifiers: Hypertension type: essential hypertension Qualified Code(s): I10 - Essential (primary) hypertension (3) DM type 2 (diabetes mellitus, type 2) Current Visit: No Status: Chronic Assessment and plan: December 16. Hemoglobin A1c was 8.4% on 10/22/2018. Blood sugars are above desirable range. Increase Levemir to 55 units twice a day and continue Accu- Cheks with SSI. December 19. Blood sugars improved. Continue present Rx. December 22. Blood sugars stable. Continue present Rx. December 24. Blood sugars satisfactory on Levemir 50 units twice a day. Continue Accu-Cheks with SSI. Qualifiers: Diabetes mellitus fci insulin use: with fci use Diabetes mellitus complication status: with hyperglycemia Qualified Code(s): E11.65 - Type 2 diabetes mellitus with hyperglycemia; Z79.4 - termite exterminator (current) use of insulin (4) Chronic back pain Current Visit: No Status: Chronic Assessment and plan: December 16. Continue prn Tylenol Qualifiers: Back pain location: low back pain Back pain laterality: bilateral Sciatica presence: without sciatica Qualified Code(s): M54.5 - Low back pain; G89.29 - Other chronic pain (5) Hypokalemia Current Visit: No Status: Resolved Assessment and plan: December 16. Continue to monitor. (6) Hyperuricemia Current Visit: Yes Status: Acute Assessment and plan: December 19. Uric acid level was 18.2 on 12/09/2018. Recheck in a.m. December 22. Uric acid level WNL at 5.4. - Subjective Interval history: December 16. She has no new complaints. December 19. She has no new complaints. She feels she is approaching her baseline functional status. December 22. She has no new complaints. December 24. She has no new complaints. December 26. She has no new complaints. - Constitutional Vitals: Temp Pulse Resp BP Pulse Ox 97.6 F 81 16 132/72 96 12/26/18 06:49 12/26/18 06:49 12/26/18 06:49 12/26/18 06:49 12/26/18 06:49 Exam: She is resting comfortably in bed and appears in no acute distress. She is appropriate in conversation. I reviewed her medications and lab results. Internal Medicine: Result - Labs CBC & Chem 7: 12/20/18 02:45 12/20/18 02:45 Consult Discharge Plan - Plan Referrals: Cesar Terry MD [Primary Care Provider] - 1 week
[2018-12-26] MEDS: Famotidine 20 MG TABLET PO SCH (21:31)
[2018-12-27 06:34] VITALS: BP 152/75
[2018-12-27] MEDS: Insulin LISPRO 300 UNITS/3 ML VIAL SQ SCH (09:13)
[2018-12-27] MEDS: Cholecalciferol (D-3) 1,000 UNIT (25MCG) TABLET PO SCH (09:42)
[2018-12-27] MEDS: Insulin DETEMIR 100 UNIT/ML X5UNITS SQ SCH (09:42)
[2018-12-27] MEDS: Lactulose Oral Soln 20 GM/30 ML UDC PO SCH (09:42)
--- NOTE | 2018-12-27 10:16 | Discharge Summary ---
Date of Encounter: 12/27/18 Time of Encounter: 10:05 - Discharge Diagnosis (1) Hepatic encephalopathy Priority: Primary Status: Acute (2) HTN (hypertension) Priority: Secondary Status: Chronic Qualifiers: Hypertension type: essential hypertension Qualified Code(s): I10 - Essential (primary) hypertension (3) DM type 2 (diabetes mellitus, type 2) Priority: Secondary Status: Chronic Qualifiers: Diabetes mellitus alf insulin use: with alf use Diabetes mellitus complication status: with hyperglycemia Qualified Code(s): E11.65 - Type 2 diabetes mellitus with hyperglycemia; Z79.4 - custodial (current) use of insulin (4) Chronic back pain Priority: Secondary Status: Chronic Qualifiers: Back pain location: low back pain Back pain laterality: bilateral Sciatica presence: without sciatica Qualified Code(s): M54.5 - Low back pain; G89.29 - Other chronic pain (5) Hypokalemia Priority: Secondary Status: Resolved (6) Hyperuricemia Priority: Secondary Status: Acute Hospital course: Ms. Rodriguez is a 73 year old female who was discharged to [facility] swing bed after a December 08 stay at [facility] where she presented with hepatic encephalopathy and YUAN. She was given rifaximin and lactulose with improvement in mental status. Nephrology was consulted and medication/fluids were adjusted with improvement in renal function. She was discharged to swing bed for rehabilitation therapy prior to returning to independent living. She continued lactulose and rifaximin. Mental status remained satisfactory. Uric acid level had decreased to 73 on 12/20/2018. She had ongoing PT and OT with satisfactory progress. Blood sugar remained stable on insulin regimen. Follow-up uric acid level on 12/20/2018 was WNL at 5.4. She will continue present dose allopurinol. On December 27 she was stable for discharge home. She will follow with her PCP Dr. Cesar Terry within 1 week. - Time Spent with Patient Total time spent providing and/or coordinating discharge services: - Discharge Medications Prescriptions: New Rifaximin [Xifaxan] 550 mg PO BID #60 tablet Continued Cholecalciferol (D-3) [Vitamin D] 1,000 unit PO DAILY Ranitidine HCl [Heartburn Relief] 150 mg PO HS Escitalopram [Lexapro] 20 mg PO QPM Guaifenesin [Mucus Relief] 400 mg PO Q12H PRN PRN Reason: Congestion Insulin LISPRO [Humalog Kwikpen U-100] 10 - 16 unit SQ TID Ferrous Sulfate [Iron] 325 mg PO BID Carvedilol [Coreg] 6.25 mg PO BIDWM #60 tablet Lactulose 20 gm PO QID #120 udc Clopidogrel Bisulfate [Plavix] 75 mg PO DAILY Alirocumab [Praluent Pen] 75 mg SQ Q2W Insulin Glargine,Hum.rec.anlog [Basaglar Kwikpen U-100] 50 unit SQ BID Changed Esomeprazole Magnesium [Nexium] 40 mg PO DAILY PRN #0 PRN Reason: Dyspepsia Discontinued Loratadine [Claritin] 10 mg PO HS Home Medications: Alirocumab [Praluent Pen] 75 mg SQ Q2W 10/21/18 [History] Clopidogrel Bisulfate [Plavix] 75 mg PO DAILY 10/21/18 [History] Cholecalciferol (D-3) [Vitamin D] 1,000 unit PO DAILY 10/22/18 [History] Escitalopram [Lexapro] 20 mg PO QPM 10/22/18 [History] Ranitidine HCl [Heartburn Relief] 150 mg PO HS 10/22/18 [History] Guaifenesin [Mucus Relief] 400 mg PO Q12H PRN 10/25/18 [History] Insulin LISPRO [Humalog Kwikpen U-100] 10 - 16 unit SQ TID 10/25/18 [History] Insulin Glargine,Hum.rec.anlog [Basaglar Kwikpen U-100] 50 unit SQ BID 12/08/18 [History] Ferrous Sulfate [Iron] 325 mg PO BID 12/09/18 [History] Carvedilol [Coreg] 6.25 mg PO BIDWM #60 tablet 12/14/18 [Rx] Lactulose 20 gm PO QID #120 udc 12/14/18 [Rx] Esomeprazole Magnesium [Nexium] 40 mg PO DAILY PRN #0 12/27/18 [Rx] Rifaximin [Xifaxan] 550 mg PO BID #60 tablet 12/27/18 [Rx] Allergies/Adverse Reactions: Allergy/AdvReac Type Severity Reaction Status Date / Time lisinopril Allergy See Verified 12/08/18 15:55 Comments losartan Allergy See Verified 12/08/18 15:55 Comments codeine AdvReac Nausea Verified 10/21/18 21:33 rosuvastatin [From Crestor] AdvReac See Verified 10/21/18 21:33 Comments Sulfa (Sulfonamide AdvReac Cough Verified 10/21/18 21:33 Antibiotics) Date of admission: 12/14/18 15:50 Primary care physician: Cesar Terry MD Consults: 12/14/18 14:10 Consult to Occupational Therapy [CONS] Routine Comment: Evaluate, develop and implement POC Reason for Consult: Evaluate, develop and implement POC Does patient have active BEDREST order?: No Is patient medically & hemodynamically stable?: Yes Patient assessed for mobility or mobilized this visit?: No Consult to Physical Therapy [CONS] Routine Comment: Evaluate, develop and implement POC Reason for Consult: Evaluate, develop and implement POC Does patient have active BEDREST order?: No Is patient medically & hemodynamically stable?: Yes Patient assessed for mobility or mobilized this visit?: No 12/14/18 16:25 Consult to Paper Folding Machine Operator [CONS] Routine Reason for SW Consult: lives alone - Constitutional Vitals: Temp Pulse Resp BP Pulse Ox 98.6 F 74 17 152/75 93 12/27/18 06:33 12/27/18 06:33 12/27/18 06:33 12/27/18 06:33 12/27/18 06:33 - Patient Status Disposition: Home, Self-Care - Discharge Instructions Follow Up With: Cesar Terry MD [Primary Care Provider] - 1 week - Diet and Activity Activity: as per physical therapy Diet: diabetic diet
[2018-12-27] MEDS ORDERED: FLU Vac QV 19-20 (6Month+)/PF 0.5 ML SYRINGE IM ONE (11:37)
--- NOTE | 2018-12-27 15:22 | Physician Discharge Referral ---
Home Health/Hosp Referral Info Transfer to: Home Health Attending Provider: Devon Provider in Charge Post Discharge: PCP (Cesar Terry M.D.) - Diagnosis (1) Hepatic encephalopathy Priority: Primary Status: Acute (2) HTN (hypertension) Priority: Secondary Status: Chronic (3) DM type 2 (diabetes mellitus, type 2) Priority: Secondary Status: Chronic (4) Chronic back pain Priority: Secondary Status: Chronic (5) Hypokalemia Priority: Secondary Status: Resolved (6) Hyperuricemia Priority: Secondary Status: Acute - Respiratory Orders Smoking Cessation: Smoking cessation has been advised. For more information, call the [place] Tobacco Quit Line at 4-260-JRLU-NOW. - Diet/Nutrition Diet/Nutrition Orders: No Concentrated Sweets - Activity Activity Orders: Walker - Services Needed Following services are medically necessary services: Nursing, Home Health Aide, Physical Therapy, Occupational Therapy - Transfer Medications Prescriptions: Insulin Glargine,Hum.rec.anlog [Basaglar Kwikpen U-100] 50 unit SQ BID 365 Days insuln.pen Rifaximin [Xifaxan] 550 mg PO BID #60 tablet Prescription Printed Home Medications: Alirocumab [Praluent Pen] 75 mg SQ Q2W 10/21/18 [History] Clopidogrel Bisulfate [Plavix] 75 mg PO DAILY 10/21/18 [History] Cholecalciferol (D-3) [Vitamin D] 1,000 unit PO DAILY 10/22/18 [History] Escitalopram [Lexapro] 20 mg PO QPM 10/22/18 [History] Ranitidine HCl [Heartburn Relief] 150 mg PO HS 10/22/18 [History] Guaifenesin [Mucus Relief] 400 mg PO Q12H PRN 10/25/18 [History] Ferrous Sulfate [Iron] 325 mg PO BID 12/09/18 [History] Carvedilol [Coreg] 6.25 mg PO BIDWM #60 tablet 12/14/18 [Rx] Lactulose 20 gm PO QID #120 udc 12/14/18 [Rx] Esomeprazole Magnesium [Nexium] 40 mg PO DAILY PRN #0 12/27/18 [Rx] Insulin Glargine,Hum.rec.anlog [Basaglar Kwikpen U-100] 50 unit SQ BID 365 Days insuln.pen 12/27/18 [Rx] Rifaximin [Xifaxan] 550 mg PO BID #60 tablet 12/27/18 [Rx] Allergies/Adverse Reactions: Allergy/AdvReac Type Severity Reaction Status Date / Time lisinopril Allergy See Verified 12/08/18 15:55 Comments losartan Allergy See Verified 12/08/18 15:55 Comments codeine AdvReac Nausea Verified 10/21/18 21:33 rosuvastatin [From Crestor] AdvReac See Verified 10/21/18 21:33 Comments Sulfa (Sulfonamide AdvReac Cough Verified 10/21/18 21:33 Antibiotics) Certification: Further, I certify that my clinical findings support that this patient is homebound (i.e. absences from home require considerable and taxing effort and are for medical reasons or hinduism services or infrequently or short duration when for other reasons) because: Homebound Reason: Leaving home requires considerable and taxing effort due to condition (Impaired walking ability secondary to hepatic encephalopathy) Attestation: My signature below is to certify that this patient is under my care and that I, or nurse practitioner, or a physician's resident care assistant working with me, has a [id number] encounter with this patient.
== END 2018-12-27 12:02 | disposition home or self-care (01) | DRG 443 ==
LOC: INPPIK 15:50
PROVIDERS: ADMIT Internal Medicine; ATTEND Internal Medicine

== ENCOUNTER 2019-01-09 10:20 | Inpatient (IN) ==
--- NOTE | 2019-01-09 10:28 | Emergency Department Note ---
Disposition Clinical Impression: Hepatic encephalopathy, Hyperammonemia, Acute renal insufficiency, Hypokalemia Altered mental status Qualifiers: Altered mental status type: disorientation Qualified Code(s): R41.0 - Disorientation, unspecified Cirrhosis Qualifiers: Hepatic cirrhosis type: unspecified hepatic cirrhosis Ascites presence: without ascites Qualified Code(s): K74.60 - Unspecified cirrhosis of liver Disposition: Admitted As Inpatient Condition: Fair Referrals: Cesar Terry MD [Primary Care Provider] - Time of Disposition: 12:23 Fall HPI - General Chief Complaint: ED Altered Mental Status Stated Complaint: head injury Time Seen by Provider: 01/09/19 10:23 Source: patient, family, EMS Mode of arrival: EMS Limitations: altered mental status, age Nursing Notes Reviewed: Yes Vital Signs Reviewed: Yes - History of Present Illness HPI Narrative: Patient has been brought in by EMS for history of a fall with some altered mental status. She reportedly hit her head and the squad was for a fall with a "bump on the head" for which they "wanted checked". The call went out that 9:12 AM. She is able to articulate that she "just fell" and that it was in the bathroom. She states she was helped up by her son. Her son told EMS that she was in the bathroom and he did not want to go in there so he waited for a while. He estimates that she might of been down for about 40 minutes. The patient is not able to remember the fall or articulate any possible cause for falling. She currently denies any pain about her body that is new. She denies any history of syncope or seizures. She denies any headache or any abnormal vision. She denies nausea or vomiting. She denies chest pain, palpitation or shortness of breath. She denies abdominal pain, nausea, vomiting or diarrhea. She denies urinary troubles. She denies any pain to her neck or back that is new. She is able to state that she has chronic low back pain and her pain is the same as usual. Family did tell EMS that she has a history of a "small brain aneurysm" and a history of hyperammonemia for which she is recently released from a hospital. She states she lives with her son and EMS relates that he visits every morning to give her medicines. He had visited this morning for that purpose. The family did tell EMS that they noted a little increased confusion yesterday and were worried if her ammonia level was again climbing. She is on daily lactulose. Pt Subjective Complaint: fall Onset (ago): hour(s) (1-2) Fall Witnessed: no Place Fall Occurred: home Loss of Consciousness: unsure Prolonged Down Time?: minute(s) (40) Symptoms Prior to Fall: none Context: unknown, other (History of hyperammonemia and increased recent confusion) Location of injury: head, back Severity: none Severity scale (1-10): 0 Associated symptoms (after fall): Reports: denies - Related Data Home Medications Medication Instructions Recorded Confirmed Alirocumab [Praluent Pen] 75 mg SQ Q2W 10/21/18 01/09/19 Clopidogrel Bisulfate [Plavix] 75 mg PO DAILY 10/21/18 01/09/19 Guaifenesin [Mucus Relief] 400 mg PO Q12H PRN 10/25/18 01/09/19 Ferrous Sulfate [Iron] 325 mg PO BID 12/09/18 01/09/19 Atenolol [Tenormin] 50 mg PO DAILY 01/09/19 01/09/19 Benzonatate [Tessalon] 200 mg PO TID PRN 01/09/19 01/09/19 Chlorthalidone 25 mg PO DAILY 01/09/19 01/09/19 Cholecalciferol (D-3) [Vitamin D] 1,000 unit PO DAILY 01/09/19 01/09/19 Fenofibrate,Micronized 200 mg PO DAILY 01/09/19 01/09/19 [Fenofibrate] Insulin ASPART [NovoLOG] 40 - 46 unit SQ TIDWM 01/09/19 01/09/19 Insulin Glargine,Hum.rec.anlog 65 unit SQ BID 01/09/19 01/09/19 [Basaglar Kwikpen U-100] Loratadine [Claritin] 10 mg PO DAILY 01/09/19 01/09/19 Oxycodone HCl/Acetaminophen 1 each PO TID PRN 01/09/19 01/09/19 [Percocet 5-325 mg Tablet] Potassium Chloride [K-Tab ER] 20 meq PO BID 01/09/19 01/09/19 Ranitidine HCl [Acid Debug Technician] 150 mg PO DAILY 01/09/19 01/09/19 Torsemide [Demadex] 20 mg PO DAILY 01/09/19 01/09/19 Tramadol HCl [Ultram] 50 mg PO HS 01/09/19 01/09/19 Previous Rx's Medication Instructions Recorded Lactulose 20 gm PO QID #120 udc 12/14/18 Esomeprazole Magnesium [Nexium] 40 mg PO DAILY PRN #0 12/27/18 Allergies Allergy/AdvReac Type Severity Reaction Status Date / Time lisinopril Allergy See Verified 12/08/18 15:55 Comments losartan Allergy See Verified 12/08/18 15:55 Comments codeine AdvReac Nausea Verified 10/21/18 21:33 rosuvastatin [From Crestor] AdvReac See Verified 10/21/18 21:33 Comments Sulfa (Sulfonamide AdvReac Cough Verified 10/21/18 21:33 Antibiotics) All systems ED: reviewed and negative except as stated. Fall PMH - Past Medical History Medical history: Reports: arthritis (DJD and chronic low back pain), cirrhosis, COPD, coronary artery disease, CVA, diabetes, GERD, hypertension, myocardial infarction, renal disease, other (Hyperammonemia, cholelithiasis). Denies: DVT, pulmonary embolus, thyroid disease Surgical history: Reports: coronary bypass (CABG), orthopedic, other (Right shoulder replacement, right hand surgery trigger finger, carpal tunnel), other (Dental) Psychiatric history: Reports: depression - Social History Smoking Status: Never smoker Alcohol use: Reports: none Drug use: Reports: none Physical Exam - General Limitations: no limitations General appearance: alert, in no apparent distress - Head Head exam: normocephalic, normal inspection, other (Forehead contusion) - Eye Eye exam: Present: normal appearance, PERRL, EOMI - ENT ENT exam: normal exam, normal oropharynx, mucous membranes moist - Neck Neck exam: Present: normal inspection, full ROM, trachea midline. Absent: tenderness, meningismus - Chest Chest inspection: Present: normal inspection, symmetric chest wall rise - Respiratory Respiratory exam: Present: normal lung sounds bilaterally. Absent: respiratory distress, wheezes, prolonged expiratory phase - Cardiovascular Cardiovascular exam: Present: regular rate, normal rhythm, normal heart sounds - Abdominal Exam Abdominal exam: Present: soft, Non-Tender, normal bowel sounds. Absent: tenderness, distention, guarding, rebound, rigidity - Extremities Exam Extremities exam: Present: normal inspection, full ROM, normal capillary refill. Absent: tenderness, pedal edema - Expanded Lower Extremity Exam Neurovascular/Tendon exam: Present: normal capillary refill. Absent: motor deficit, sensory deficit, tendon deficit Gait: not tested/not observed - Back Exam Back exam: Present: normal inspection, full ROM. Absent: tenderness, CVA tenderness (R), CVA tenderness (L) - Neurological Exam Neurological exam: Present: alert, CN II-XII intact, reflexes normal. Absent: motor sensory deficit - Psychiatric Psychiatric exam: Present: normal affect, normal mood. Absent: agitated, anxious - Skin Skin exam: Present: warm, dry, intact, normal color, diaphoresis, pallor Course Course Narrative: 1050: Lab is called to advise us that her chemistries will be delayed by 45 minutes. 1137: Patient's urine does show enzymatic evidence for infection as well as white cells, bacteria and squamous epithelial cells in the urine. A culture will be pending. She is been written for IV Rocephin while we await the return of her chemistries. The patient has taken her own lactulose dose from her home prescription at 11 AM. 1150: I have contacted the lab with regard to the return of the patient's chemistries. I was advised that they should be off the analyzer in about 8 minutes. 1220: With return of all laboratory, care has been discussed with Dr. Osorio. He is agreeable with her admission to this facility and has given verbal orders. A dose of oral potassium is been ordered for her potassium of 2.6. Vital Signs Temperature 98.3 F 01/09/19 10:46 Pulse Rate 69 01/09/19 10:46 Respiratory Rate 18 01/09/19 10:46 Blood Pressure 141/72 01/09/19 10:46 O2 Sat by Pulse Oximetry 92 01/09/19 10:46 Temperature 98.3 F 01/09/19 10:46 Pulse Rate 69 01/09/19 12:02 Respiratory Rate 18 01/09/19 12:02 Blood Pressure 143/94 01/09/19 12:02 O2 Sat by Pulse Oximetry 93 01/09/19 12:02 Oxygen Delivery Oxygen Delivery Room Air Fall - Differential Diagnosis Likely: syncope, traumatic injury, arrhythmia - Medical Records Medical records reviewed: Yes I reviewed the patient's medical records. Patient's recent admission for or altered mental status and hyperammonemia is been reviewed. She was released on December 27 from a PMC after being initially admitted to [facility] on December 08. Her admission ammonia level was 162 and it was down to 73 on December 20. She was hemoconcentrated to a hemoglobin of 17.4 and with hydration had a hemoglobin of 12.7 on the . Similarly her creatinine was 2.11 on admission and 0.81 on December 20. She appears to be in similar condition at this time. BRAIN/VENTRICLES: There is no acute intracranial hemorrhage, mass effect or midline shift. No abnormal extra-axial fluid collection. The pulido-white differentiation is maintained without evidence of an acute infarct. There is no evidence of hydrocephalus. Chronic white matter disease as well as encephalomalacia within the right occipital lobe are unchanged. CT/CT head/brain wo con IMPRESSION: No acute intracranial abnormality. D/ / Kimberly Berry Cha, MD / Kimberly Berry Cha, MD CT/CT abd pelvis wo no iv no oral IMPRESSION: No acute intra-abdominal abnormality or explanation for pain. Cirrhotic morphology of the liver. Cholelithiasis. D/ / Nic Crocker MD / Nic Crocker MD - Lab Data Lab results reviewed: Yes I reviewed the patient's lab results. Result diagrams: 01/09/19 10:39 01/09/19 10:39 Lab Results 01/09/19 01/09/19 01/09/19 Range/Units 10:39 10:39 10:39 WBC 8.8 (4.3-11.1) K/mcL RBC 5.25 H (3.82-4.97) M/mcL Hgb 16.6 H (11.5-15.4) g/dL Hct 47.8 H (35.3-44.9) % MCV 91.0 (83.0-100.0) fL MCH 31.6 (28.0-33.3) pg MCHC 34.7 (31.6-35.5) g/dL RDW 14.5 (11.5-14.5) % Plt Count 212 (140-400) K/mcL MPV 11.7 (9.4-12.4) fL Immature Gran % 0.2 (0-4) % Seg Neutrophils % 73.0 % Lymphocytes % 19.3 % Monocytes % 7.1 % Eosinophils % 0.2 % Basophils % 0.2 % Neutrophils # 6.4 (1.6-8.9) K/mcL Lymphocytes # 1.7 (0.6-4.6) K/mcL Monocytes # 0.6 (0.0-1.3) K/mcL Eosinophils # 0.0 (0.0-0.6) K/mcL Basophils # 0.0 (0.0-0.2) K/mcL PT 14.4 H (9.4-12.1) Seconds INR 1.3 APTT 37.4 H (26.0-36.0) Seconds Sodium 140 (136-145) mEq/L Potassium 2.6 L (3.5-5.1) mEq/L Chloride 96 L (98-107) mEq/L Carbon Dioxide 29 (23-29) mEq/L BUN 37 H (8-23) mg/dL Creatinine 1.86 H (0.60-1.20) mg/dL Est GFR ( Amer) 32 L (> 60) Est GFR (Non-Af Amer) 26 L (> 60) BUN/Creatinine Ratio 20 (6-26) Glucose 262 H (70-105) mg/dL Calculated Osmolality 308 H (280-300) Calcium 10.6 H (8.6-10.3) mg/dL Total Bilirubin 2.0 H (0.3-1.0) mg/dL Direct Bilirubin 0.7 H (0.0-0.2) mg/dL Indirect Bilirubin 1.3 H (0.0-1.2) mg/dL AST 33 (13-39) Units/L ALT 17 (7-52) Units/L Alkaline Phosphatase 85 (34-104) Units/L Ammonia (16-53) mcmol/L Troponin I < 0.03 (< 0.04) ng/mL Serum Total Protein 8.2 (6.4-8.9) g/dL Albumin 3.7 (3.5-5.7) g/dL Globulin 4.5 H (2.4-3.5) g/dL Albumin/Globulin Ratio 0.8 L (1.1-2.2) Urine Color (Yellow) Urine Clarity (Clear) Urine pH (5.0-8.0) pH Units Ur Specific [place] (1.010-1.025) Urine Protein (Neg-Trace) mg/dL Urine Glucose (UA) (Normal) mg/dL Urine Ketones (Negative) mg/dL Urine Blood (Negative) Urine Nitrite (Negative) Urine Bilirubin (Negative) Urine Urobilinogen (Normal) mg/dL Ur Leukocyte Esterase (Negative) Urine Microscopic RBC (0-3) per hpf Urine Microscopic WBC (0-3) per hpf Ur Squamous Epith Cells (None-Few) per lpf Urine Bacteria (None-Few) per hpf Hyaline Casts (None-Few) per lpf Granular Casts (None Seen) per lpf Urine Mucus (Few) Ur Culture Indicated? (NO) 01/09/19 01/09/19 Range/Units 10:39 11:10 WBC (4.3-11.1) K/mcL RBC (3.82-4.97) M/mcL Hgb (11.5-15.4) g/dL Hct (35.3-44.9) % MCV (83.0-100.0) fL MCH (28.0-33.3) pg MCHC (31.6-35.5) g/dL RDW (11.5-14.5) % Plt Count (140-400) K/mcL MPV (9.4-12.4) fL Immature Gran % (0-4) % Seg Neutrophils % % Lymphocytes % % Monocytes % % Eosinophils % % Basophils % % Neutrophils # (1.6-8.9) K/mcL Lymphocytes # (0.6-4.6) K/mcL Monocytes # (0.0-1.3) K/mcL Eosinophils # (0.0-0.6) K/mcL Basophils # (0.0-0.2) K/mcL PT (9.4-12.1) Seconds INR APTT (26.0-36.0) Seconds Sodium (136-145) mEq/L Potassium (3.5-5.1) mEq/L Chloride (98-107) mEq/L Carbon Dioxide (23-29) mEq/L BUN (8-23) mg/dL Creatinine (0.60-1.20) mg/dL Est GFR ( Amer) (> 60) Est GFR (Non-Af Amer) (> 60) BUN/Creatinine Ratio (6-26) Glucose (70-105) mg/dL Calculated Osmolality (280-300) Calcium (8.6-10.3) mg/dL Total Bilirubin (0.3-1.0) mg/dL Direct Bilirubin (0.0-0.2) mg/dL Indirect Bilirubin (0.0-1.2) mg/dL AST (13-39) Units/L ALT (7-52) Units/L Alkaline Phosphatase (34-104) Units/L Ammonia 106 H (16-53) mcmol/L Troponin I (< 0.04) ng/mL Serum Total Protein (6.4-8.9) g/dL Albumin (3.5-5.7) g/dL Globulin (2.4-3.5) g/dL Albumin/Globulin Ratio (1.1-2.2) Urine Color Yellow (Yellow) Urine Clarity Cloudy A (Clear) Urine pH 6.0 (5.0-8.0) pH Units Ur Specific [place] 1.015 (1.010-1.025) Urine Protein Negative (Neg-Trace) mg/dL Urine Glucose (UA) Normal (Normal) mg/dL Urine Ketones Negative (Negative) mg/dL Urine Blood Trace-intact H (Negative) Urine Nitrite Negative (Negative) Urine Bilirubin Negative (Negative) Urine Urobilinogen Normal (Normal) mg/dL Ur Leukocyte Esterase Moderate H (Negative) Urine Microscopic RBC 0-3 (0-3) per hpf Urine Microscopic WBC 30-50 H (0-3) per hpf Ur Squamous Epith Cells Many H (None-Few) per lpf Urine Bacteria Moderate H (None-Few) per hpf Hyaline Casts Few (None-Few) per lpf Granular Casts Few H (None Seen) per lpf Urine Mucus Few (Few) Ur Culture Indicated? YES A (NO) - Radiology Data Radiology results reviewed: Yes I reviewed the patient's radiology results. CT head is performed. This is reviewed on bone and soft tissue windows. There is no evidence for acute intracranial bleed, shift, mass or edema. She has an area of evolved infarct in the right occipital region that is unchanged from 12/08/2018. Mastoids and sinuses appear normal. There is no fracture evident. This is on my interpretation. CT is performed abdomen and pelvis without IV or oral contrast. Imaging starts above the heart, thereby including about two thirds of the lungs. There is no evidence for pulmonary infiltrates, contusion or mass on lung windows. The liver, spleen and pancreas appear normal. She does have a calcification the splenic artery. Gallbladder has stones present without inflammatory change or obstructive findings. Kidneys are without stone or obstruction. The bowel is without inflammatory change, obstruction or perforation. Patient is bladder somewhat distended but that bladder wall was not thickened and there is no inflammatory change. She is status post hysterectomy. Soft tissues appear unremarkable there is no evidence for acute hernia. There is a small umbilical fat-containing hernia that is unchanged. Lumbar spine is evaluated on bone windows and she does have back utilization of disc spaces between L1 and L2 as well as L3-L4, L4-L5 and L5-S1. She appears to have this effusion is with some calcification from L3-S1. She does not have evidence for compression or fracture. I do not see evidence for significant spinal stenosis. This is on my interpretation. Impressions Abdomen/Pelvis CT 01/09/19 11:11 IMPRESSION: Nodular contour of the liver suggest chronic disease, also present on the prior study. Cholelithiasis. Small hiatal hernia. No acute noncontrast abdominopelvic abnormality. D/ / Kimberly Berry Cha, MD / Kimberly Berry Cha, MD Interpreting Provider: Kimberly Berry Cha, MD Head CT 01/09/19 11:11 IMPRESSION: No acute intracranial abnormality. D/ / Kimberly Berry Cha, MD / Kimberly Berry Cha, MD Interpreting Provider: Kimberly Berry Cha, MD - EKG Data EKG attestation: Yes I reviewed and interpreted this EKG. EKG shows normal: sinus rhythm, axis, intervals, QRS complexes, ST-T waves Rate: normal (70) Interpretation: no acute changes, normal EKG
[2019-01-09 10:45] LABS: Basophils % 0.2 %; Eosinophils % 0.2 %; Hematocrit 47.8 % (35.3-44.9); Hemoglobin 16.6 g/dL (11.5-15.4); Immature Granulocytes % 0.2 % (0-4); Lymphocytes # 1.7 K/mcL (0.6-4.6); Lymphocytes % 19.3 %; Mean Corpuscular HGB Conc 34.7 g/dL (31.6-35.5); Mean Corpuscular Hemoglobin 31.6 pg (28.0-33.3); Mean Platelet Volume 11.7 fL (9.4-12.4); Monocytes # 0.6 K/mcL (0.0-1.3); Monocytes % 7.1 %; Neutrophils # 6.4 K/mcL (1.6-8.9); Platelet Count 212 K/mcL (140-400); Red Blood Count 5.25 M/mcL (3.82-4.97); Red Cell Distribution Width 14.5 % (11.5-14.5); White Blood Count 8.8 K/mcL (4.3-11.1)
[2019-01-09] MEDS ORDERED: 0.9 % Sodium Chloride 1,000 ML IVC ONE (10:48)
[2019-01-09 10:52] LABS: INR 1.3; Prothrombin Time 14.4 Seconds (9.4-12.1)
[2019-01-09 10:54] LABS: Activated Partial Thrombo Time 37.4 Seconds (26.0-36.0)
[2019-01-09] MEDS ORDERED: 0.9 % Sodium Chloride 1,000 ML IVC SCH ×2 (11:00→13:15)
[2019-01-09 11:03] LABS: Troponin I < 0.03 ng/mL (< 0.04)
[2019-01-09 11:21] LABS: Bilirubin,Urine Negative (Negative); Blood,Urine Trace-intact (Negative); Clarity,Urine Cloudy (Clear); Color,Urine Yellow (Yellow); Glucose,Urine (UA) Normal (Normal); Ketones,Urine Negative (Negative); Leukocyte Esterase,Urine Moderate (Negative); Nitrite,Urine Negative (Negative); Protein,Urine Negative (Neg-Trace); Specific Gravity,Urine 1.015 (1.010-1.025); Urobilinogen,Urine Normal (Normal)
[2019-01-09 11:28] LABS: Bacteria,Urine Moderate per hpf (None-Few); Granular Casts,Urine Few per lpf (None Seen); Hyaline Casts,Urine Few per lpf (None-Few); Mucus,Urine Few (Few); RBC,Urine 0-3 per hpf (0-3); WBC,Urine 30-50 per hpf (0-3)
[2019-01-09 11:29] LABS: Squamous Epithelial Cell,Urine Many per lpf (None-Few)
[2019-01-09] MEDS ORDERED: cefTRIAXone 2,000 MG in 0.9 % Sodium Chloride Mini Bag 100 ML IVPB ONE (11:36)
[2019-01-09 11:54] LABS: Alanine Aminotransferase 17 Units/L (7-52); Albumin 3.7 g/dL (3.5-5.7); Albumin/Globulin Ratio 0.8 (1.1-2.2); Alkaline Phosphatase 85 Units/L (34-104); Aspartate Amino Transferase 33 Units/L (13-39); BUN/Creatinine Ratio 20 (6-26); Bilirubin,Direct 0.7 mg/dL (0.0-0.2); Bilirubin,Indirect 1.3 mg/dL (0.0-1.2); Blood Urea Nitrogen 37 mg/dL (8-23); Calcium 10.6 mg/dL (8.6-10.3); Carbon Dioxide 29 mEq/L (23-29); Chloride 96 mEq/L (98-107); Globulin 4.5 g/dL (2.4-3.5); Glucose 262 mg/dL (70-105); Osmolality,Calculated 308 (280-300); Potassium 2.6 mEq/L (3.5-5.1); Sodium 140 mEq/L (136-145); Total Protein 8.2 g/dL (6.4-8.9); eGFR For African Americans 32 (> 60); eGFR For Non-African Americans 26 (> 60)
[2019-01-09] MEDS ORDERED: Potassium Chloride Elixir 20 MEQ/15 ML UDC PO ONE (12:20)
[2019-01-09] MEDS ORDERED: Benzonatate 100 MG CAPSULE PO PRN (13:15)
[2019-01-09] MEDS ORDERED: Lactulose Oral Soln 20 GM/30 ML UDC PO SCH (13:15)
[2019-01-09] MEDS ORDERED: D5% in Water 1,000 ML IVC PRN (13:15)
[2019-01-09] MEDS ORDERED: Ondansetron ODT 4 MG TAB.RAPDIS SL PRN (13:15)
[2019-01-09] MEDS ORDERED: Mag Hydrox/Al Hydrox/Simeth 30 ML UDC PO PRN (13:15)
[2019-01-09] MEDS ORDERED: GuaiFENesin Liq 200 MG/10 ML UDC PO PRN (13:15)
[2019-01-09] MEDS ORDERED: Naloxone 0.4 MG/ML INJ IVP PRN (13:15)
[2019-01-09] MEDS ORDERED: Alirocumab [Praluent Pen] 75 MG SQ SCH (13:15)
[2019-01-09] MEDS ORDERED: *HR* Dextrose 50 % in Water (Syg) 50 ML SYRINGE IVP PRN (13:15)
[2019-01-09] MEDS ORDERED: Dextrose Gel 15 GM/37.5 ML TUBE PO PRN ×2 (13:15)
[2019-01-09] MEDS ORDERED: MOM Conc 10 ML UD.LIQ PO PRN (13:15)
[2019-01-09] MEDS ORDERED: *HR* Dextrose 50 % in Water (Vial) 50 ML VIAL IVP PRN (14:30)
[2019-01-09] MEDS: Lactulose Oral Soln 20 GM/30 ML UDC PO SCH ×3 (16:55→20:23)
[2019-01-09] MEDS: Insulin LISPRO 300 UNITS/3 ML VIAL SQ SCH ×2 (16:55→16:56)
--- NOTE | 2019-01-09 18:30 | Internal Med History&Physical ---
Date of Encounter: 01/09/19 Time of Encounter: 18:00 Assessment and Plan (1) Hepatic encephalopathy Current visit: Yes Status: Acute She will be restarted on rifaximin. Lactulose will be continued. Reassess in a.m. (2) HTN (hypertension) Current visit: No Status: Chronic Continue atenolol. Hold chlorthalidone and Demadex due to azotemia and hypokalemia. Qualifiers: Hypertension type: essential hypertension Qualified Code(s): I10 - Essential (primary) hypertension (3) DM type 2 (diabetes mellitus, type 2) Current visit: No Status: Chronic Continue Levemir and do Accu-Cheks with SSI. 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 Supplement potassium will be given. (5) YUAN (acute kidney injury) Current visit: No Status: Acute IV fluids have been ordered. Diuretics will be held and renal indices monitored. Internal Medicine - H&P: HPI Chief complaint: Fall, confusion Admitted From: Emergency Dept Plans for Post Hospital Care: Home History of present illness: Ms. Rodriguez is a 73 year old female who was brought to emergency room after she had a fall at home. She was found to have altered mental status by her family. She denies syncope but states she lost her balance in the bathroom. She was evaluated emergency room and was found to have hypokalemia, acute renal failure, hypercalcemia, and probable hepatic encephalopathy. She was admitted to [facility] floor for ongoing care needs. She was in [facility] swing bed December 15- following [facility] hospitalization for hepatic encephalopathy and acute kidney injury. She was prescribed lactulose and rifaximin at discharge but it does not appear rifaximin has been taken. She has underlying cirrhosis felt likely due to CASTRO. Abdominal/pelvic CT scan 12/08/2018 showed no acute intra-abdominal pathology with cholelithiasis and cirrhotic morphology of the liver. She denies alcohol use. Surgery was consulted during her October [facility] hospitalization but did not recommend cholecystectomy. GI history is negative otherwise for known disorders of her liver or exocrine pancreas. Past Med Surg Social Fam HX - Past Medical History Medical history: arthritis, cirrhosis, COPD, coronary artery disease, CVA, diabetes, GERD, hypertension, myocardial infarction, renal disease, other Additional medical history: elevated ammonia Psychiatric history: depression - Past Surgical History Surgical History: coronary bypass (CABG), orthopedic, other, other Additional surgical history: R total shoulder replacement. CTR right hand. right hand surgery trigger finger. dental - Social History Smoking Status: Never smoker Smokeless Tobacco Status: No Alcohol use: none Drug use: none - Family History Father Adopted: [place]: Pato Scott Family Member Ethnicity: Non- Living Status: Age at : 64 Cause of : [place] Hx Family Cardiac Disorders: Yes Hx Family Respiratory Disorders: Yes (Lung problems (black lung)) Hx Family Cancer: No Hx Family GI Disorders: No Hx Family Endocrine Disorder: No Hx Family Neuromuscular Disorders: No Hx Family Neurologic Disorders: No Hx Family HEENT Disorders: No Hx Family Autoimmune Disorders: No Mother Adopted: [place]: Tanja Scott Family Ethnicity: Non- Living Status: Age at : 94 Cause of : Pne, heart failure Hx Family Cardiac Disorders: Yes (CHF) Hx Family Respiratory Disorders: No Hx Family Cancer: Yes (Lung) Hx Family GI Disorders: No Hx Family Endocrine Disorder: Yes (diabetes) Hx Family Neuromuscular Disorders: No Hx Family Neurologic Disorders: No Hx Family HEENT Disorders: No Hx Family Autoimmune Disorders: No Internal Medicine - H&P: Meds Alirocumab [Praluent Pen] 75 mg SQ Q2W 10/21/18 [History] Clopidogrel Bisulfate [Plavix] 75 mg PO DAILY 10/21/18 [History] Guaifenesin [Mucus Relief] 400 mg PO Q12H PRN 10/25/18 [History] Ferrous Sulfate [Iron] 325 mg PO BID 12/09/18 [History] Lactulose 20 gm PO QID #120 udc 12/14/18 [Rx] Esomeprazole Magnesium [Nexium] 40 mg PO DAILY PRN #0 12/27/18 [Rx] Atenolol [Tenormin] 50 mg PO DAILY 01/09/19 [History] Benzonatate [Tessalon] 200 mg PO TID PRN 01/09/19 [History] Chlorthalidone 25 mg PO DAILY 01/09/19 [History] Cholecalciferol (D-3) [Vitamin D] 1,000 unit PO DAILY 01/09/19 [History] Fenofibrate,Micronized [Fenofibrate] 200 mg PO DAILY 01/09/19 [History] Insulin ASPART [NovoLOG] 40 - 46 unit SQ TIDWM 01/09/19 [History] Insulin Glargine,Hum.rec.anlog [Basaglar Kwikpen U-100] 65 unit SQ BID 01/09/19 [History] Loratadine [Claritin] 10 mg PO DAILY 01/09/19 [History] Oxycodone HCl/Acetaminophen [Percocet 5-325 mg Tablet] 1 each PO TID PRN 01/09/19 [History] Potassium Chloride [K-Tab ER] 20 meq PO BID 01/09/19 [History] Ranitidine HCl [Acid Manager Unix] 150 mg PO DAILY 01/09/19 [History] Torsemide [Demadex] 20 mg PO DAILY 01/09/19 [History] Tramadol HCl [Ultram] 50 mg PO HS 01/09/19 [History] Allergy/AdvReac Type Severity Reaction Status Date / Time lisinopril Allergy See Verified 12/08/18 15:55 Comments losartan Allergy See Verified 12/08/18 15:55 Comments codeine AdvReac Nausea Verified 10/21/18 21:33 rosuvastatin [From Crestor] AdvReac See Verified 10/21/18 21:33 Comments Sulfa (Sulfonamide AdvReac Cough Verified 10/21/18 21:33 Antibiotics) All Systems PM: A 10-system review of systems was performed and is negative for pertinent findings except as documented above in the HPI. Review of systems: Review of systems from her recent December 2018 [facility] hospitalization were reviewed and revised as below. She is unable to confirm ROS at this time due to impaired concentration. Gen.: Her weight has decreased from 110.5 kg on 10/27/2018 to present weight of 90.265 kg. Cardiovascular: She reports hypertension and claims [place] approximately 2005. Regadenoson EST 10/06/2017 showed LVEF of 70% and no EKG or perfusion evidence of ischemia. She denies history of heart failure DVT or pulmonary embolus. Echocardiogram 12/09/2018 showed LVEF of 60%. No significant valvular abnormality was seen. Interventricular septum and posterior wall thickness measurements were normal at 1.00 and 0.70 cm respectively. E/A ratio was 0.8. Respiratory: She is a lifelong nonsmoker and denies chronic lung disease GI: As per history of present illness : She had right hydronephrosis seen on CT scan at previous [facility] admission. Urology was consulted and did not recommend specific intervention. No hydronephrosis was noted on abdominal/pelvic CT in the ER today. She denies other disorders of her kidney or bladder. 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 Head CT 10/21/2018 showed chronic ischemic changes including remote right occipital infarct. She denies seizures. Endocrine: She reports being diagnosed with DM 2 in 2018. Hemoglobin A1c was 8.4% on 10/22/2018. She has hyperlipidemia but denies known thyroid disease Hematology/oncology: She denies blood disorders cancers or anemia Psychiatric: She denies anxiety depression or other mental health issues Mus[place] skeletal: She has DJD and chronic low back pain. She denies known gout. - Constitutional Vitals: Temp Pulse Resp BP Pulse Ox 97.6 F 60 16 166/76 94 01/09/19 16:00 01/09/19 16:00 01/09/19 16:00 01/09/19 16:00 01/09/19 16:00 Exam: Gen.: She is a well-developed well-nourished female sitting on the side of bed who appears in no acute distress. She has slow mentation and cannot answer most questions with reliable answers. HEENT: She has an ecchymosis in her mid forehead area without obvious laceration. Eyes: EOMI. There is no scleral icterus. Mouth: Mucosa is moist. Neck: Supple and nontender. There is no thyromegaly or adenopathy noted. Heart: Regular without murmurs gallops or ectopics Lungs: No wheezes or crackles are heard. Abdomen: Soft and nontender. No masses or guarding are noted. Extremities: There is no cyanosis edema or clubbing noted. Dorsalis pedis and posterior tibial pulses are trace to 1+ palpable bilaterally. Neurologic: Mental status: She attempts to answer some questions but often a nswers "I do not know" and has difficulty concentrating. She cannot do simple money math. Cranial nerves: Smile is symmetric. Forehead wrinkles bilaterally. Tongue protrudes midline. EOMI. Motor: There is no pronator drift. Cerebellar: Finger to nose is intact bilaterally. Skin: Warm and dry Internal Med - H&P Results - Labs CBC & Chem 7: 01/09/19 10:39 01/09/19 10:39 Labs: Short CBC 01/09/19 Range/Units 10:39 WBC 8.8 (4.3-11.1) K/mcL Hgb 16.6 H (11.5-15.4) g/dL Hct 47.8 H (35.3-44.9) % Plt Count 212 (140-400) K/mcL Neutrophils # 6.4 (1.6-8.9) K/mcL BMP 01/09/19 10:39 Sodium 140 Potassium 2.6 L Chloride 96 L Carbon Dioxide 29 BUN 37 H Creatinine 1.86 H Glucose 262 H Calcium 10.6 H Cardiac Enzymes 01/09/19 Range/Units 10:39 Troponin I < 0.03 (< 0.04) ng/mL Liver Function 01/09/19 Range/Units 10:39 Total Bilirubin 2.0 H (0.3-1.0) mg/dL Direct Bilirubin 0.7 H (0.0-0.2) mg/dL AST 33 (13-39) Units/L ALT 17 (7-52) Units/L Alkaline Phosphatase 85 (34-104) Units/L Albumin 3.7 (3.5-5.7) g/dL Urine 01/09/19 Range/Units 11:10 Urine Color Yellow (Yellow) Urine Clarity Cloudy A (Clear) Urine pH 6.0 (5.0-8.0) pH Units Ur Specific [place] 1.015 (1.010-1.025) Urine Protein Negative (Neg-Trace) mg/dL Urine Glucose (UA) Normal (Normal) mg/dL - Impressions ITS Impressions Abdomen/Pelvis CT 01/09/19 11:11 IMPRESSION: Nodular contour of the liver suggest chronic disease, also present on the prior study. Cholelithiasis. Small hiatal hernia. No acute noncontrast abdominopelvic abnormality. D/ / Kimberly Berry Cha, MD / Kimberly Berry Cha, MD Interpreting Provider: Kimberly Berry Cha, MD Head CT 01/09/19 11:11 IMPRESSION: No acute intracranial abnormality. D/ / Kimberly Berry Cha, MD / Kimberly Berry Cha, MD Interpreting Provider: Kimberly Berry Cha, MD
[2019-01-09] MEDS: 0.45 % Sodium Chloride w/KCl 20 MEQ/1,000 ML MLS IVC SCH (20:22)
[2019-01-09] MEDS: traMADol 50 MG TABLET PO SCH (20:23)
[2019-01-09] MEDS: Insulin DETEMIR 100 UNIT/ML X5UNITS SQ SCH (20:24)
[2019-01-09] MEDS ORDERED: Potassium Chloride Elixir 20 MEQ/15 ML UDC PO SCH (21:00)
[2019-01-10 04:58] LABS: Basophils # 0.1 K/mcL (0.0-0.2); Basophils % 0.6 %; Eosinophils # 0.2 K/mcL (0.0-0.6); Eosinophils % 2.1 %; Hematocrit 44.7 % (35.3-44.9); Hemoglobin 15.4 g/dL (11.5-15.4); Immature Granulocytes % 0.4 % (0-4); Lymphocytes # 2.9 K/mcL (0.6-4.6); Lymphocytes % 37.5 %; Mean Corpuscular HGB Conc 34.5 g/dL (31.6-35.5); Mean Corpuscular Hemoglobin 31.8 pg (28.0-33.3); Mean Corpuscular Volume 92.2 fL (83.0-100.0); Mean Platelet Volume 12.1 fL (9.4-12.4); Monocytes # 0.8 K/mcL (0.0-1.3); Neutrophils # 3.8 K/mcL (1.6-8.9); Platelet Count 168 K/mcL (140-400); Red Blood Count 4.85 M/mcL (3.82-4.97); Red Cell Distribution Width 14.7 % (11.5-14.5); Segmented Neutrophils % 49.4 %; White Blood Count 7.7 K/mcL (4.3-11.1)
[2019-01-10 05:28] LABS: Albumin 3.4 g/dL (3.5-5.7); Albumin/Globulin Ratio 0.9 (1.1-2.2); Bilirubin,Total 1.1 mg/dL (0.3-1.0); Magnesium 1.7 mg/dL (1.6-2.6); Potassium 2.4 mEq/L (3.5-5.1); Total Protein 7.4 g/dL (6.4-8.9)
[2019-01-10] MEDS: 0.45 % Sodium Chloride w/KCl 20 MEQ/1,000 ML MLS IVC SCH ×2 (06:29→11:22)
[2019-01-10] MEDS: Insulin LISPRO 300 UNITS/3 ML VIAL SQ SCH ×6 (08:42→17:41)
[2019-01-10] MEDS: Insulin DETEMIR 100 UNIT/ML X5UNITS SQ SCH ×3 (08:45→19:53)
[2019-01-10] MEDS ORDERED: Torsemide 20 MG TABLET PO SCH (09:00)
[2019-01-10] MEDS ORDERED: Loratadine 10 MG TABLET PO SCH (09:00)
[2019-01-10] MEDS: Famotidine 20 MG TABLET PO SCH (09:02)
[2019-01-10] MEDS: Cholecalciferol (D-3) 1,000 UNIT (25MCG) TABLET PO SCH (09:02)
[2019-01-10] MEDS: Lactulose Oral Soln 20 GM/30 ML UDC PO SCH ×4 (09:03→20:00)
[2019-01-10] MEDS: *HR* OxyCODONE/APAP 5/325 TABLET PO PRN ×2 (09:16→17:49)
[2019-01-10 13:19] LABS: Calcium 9.3 mg/dL (8.6-10.3); Potassium 2.8 mEq/L (3.5-5.1)
[2019-01-10] MEDS ORDERED: Potassium Chloride 40 MEQ, Lidocaine 1% 2 ML in 0.9 % Sodium Chloride 500 ML IVPB ONE (16:39)
--- NOTE | 2019-01-10 16:58 | Internal Med Progress Note ---
Date of Encounter: 01/10/19 Time of Encounter: 16:47 - Assessment and plan (1) Hepatic encephalopathy Current Visit: Yes Status: Acute Assessment and plan: January 10. Ammonia level has decreased to 88. Continue lactulose and ri faximin. (2) HTN (hypertension) Current Visit: No Status: Chronic Assessment and plan: January 10. Continue atenolol. Remain off chlorthalidone and Demadex. Qualifiers: Hypertension type: essential hypertension Qualified Code(s): I10 - Essential (primary) hypertension (3) DM type 2 (diabetes mellitus, type 2) Current Visit: No Status: Chronic Assessment and plan: January 10. Hemoglobin A1c was 8.4% on 10/22/2018. Accu-Cheks reviewed. Increase Levemir to 70 units twice a day and decrease Humalog to 30 units 3 times a day with meals. 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 Potassium level still significantly low at 2.8 following initial K riders. Repeat K riders with additional 40 mEq. Increase oral KCl to 20 mEq 3 times a day. Recheck labs in a.m. (5) YUAN (acute kidney injury) Current Visit: No Status: Acute Assessment and plan: January 10. BUN and creatinine slightly improved to 32 and 1.57 respectively. Continue IV fluids and recheck labs in a.m. - Subjective Interval history: January 10. She has no new complaints. - Constitutional Vitals: Temp Pulse Resp BP Pulse Ox 97.7 F 62 16 151/65 98 01/10/19 16:37 01/10/19 16:37 01/10/19 16:37 01/10/19 16:37 01/10/19 16:37 Exam: She is lying in bed and appears in no acute distress. Her affect is overall cheerful. Heart is regular without murmurs gallops or ectopics. Lungs are clear anteriorly. Extremities show no pitting edema. She does not recall details any better today about her medication use or her past history. I reviewed her medications and lab results. Internal Medicine: Result - Labs CBC & Chem 7: 01/10/19 04:50 01/10/19 12:54 Labs: Short CBC 01/10/19 Range/Units 04:50 WBC 7.7 (4.3-11.1) K/mcL Hgb 15.4 (11.5-15.4) g/dL Hct 44.7 (35.3-44.9) % Plt Count 168 (140-400) K/mcL Neutrophils # 3.8 (1.6-8.9) K/mcL BMP 01/10/19 01/10/19 04:50 12:54 Sodium 141 135 L Potassium 2.4 L* 2.8 L Chloride 102 99 Carbon Dioxide 29 27 BUN 34 H 32 H Creatinine 1.48 H 1.57 H Glucose 78 253 H Calcium 10.0 9.3 Liver Function 01/10/19 Range/Units 04:50 Total Bilirubin 1.1 H (0.3-1.0) mg/dL AST 41 H (13-39) Units/L ALT 17 (7-52) Units/L Alkaline Phosphatase 76 (34-104) Units/L Albumin 3.4 L (3.5-5.7) g/dL - ABG Interpretation ABG results: PT/INR, D-dimer PT 14.4 Seconds (9.4-12.1) H 01/09/19 10:39 Consult Discharge Plan - Plan
[2019-01-10] MEDS: Fenofibrate 54 MG TABLET PO SCH (19:51)
[2019-01-10] MEDS: traMADol 50 MG TABLET PO SCH (19:52)
--- NOTE | 2019-01-10 21:09 | Electrocardiograph Report ---
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
[2019-01-11] MEDS: 0.45 % Sodium Chloride w/KCl 20 MEQ/1,000 ML MLS IVC SCH ×3 (02:28→21:03)
[2019-01-11 07:13] LABS: Basophils % 0.7 %; Eosinophils # 0.1 K/mcL (0.0-0.6); Eosinophils % 3.1 %; Hematocrit 39.5 % (35.3-44.9); Hemoglobin 13.4 g/dL (11.5-15.4); Immature Granulocytes % 0.5 % (0-4); Lymphocytes # 1.6 K/mcL (0.6-4.6); Lymphocytes % 36.9 %; Mean Corpuscular HGB Conc 33.9 g/dL (31.6-35.5); Mean Corpuscular Volume 94.3 fL (83.0-100.0); Mean Platelet Volume 11.7 fL (9.4-12.4); Monocytes # 0.4 K/mcL (0.0-1.3); Monocytes % 9.3 %; Neutrophils # 2.1 K/mcL (1.6-8.9); Platelet Count 117 K/mcL (140-400); Red Blood Count 4.19 M/mcL (3.82-4.97); Red Cell Distribution Width 15.1 % (11.5-14.5); Segmented Neutrophils % 49.5 %; White Blood Count 4.2 K/mcL (4.3-11.1)
[2019-01-11 08:08] LABS: Calcium 9.1 mg/dL (8.6-10.3)
[2019-01-11] MEDS: Cholecalciferol (D-3) 1,000 UNIT (25MCG) TABLET PO SCH (08:58)
[2019-01-11] MEDS: Famotidine 20 MG TABLET PO SCH (08:58)
[2019-01-11] MEDS: Lactulose Oral Soln 20 GM/30 ML UDC PO SCH ×3 (08:59→20:55)
[2019-01-11] MEDS: Insulin LISPRO 300 UNITS/3 ML VIAL SQ SCH ×6 (08:59→18:15)
[2019-01-11] MEDS: Insulin DETEMIR 100 UNIT/ML X5UNITS SQ SCH ×2 (11:30→20:56)
--- NOTE | 2019-01-11 12:06 | Internal Med Progress Note ---
Date of Encounter: 01/11/19 Time of Encounter: 11:55 - Assessment and plan (1) Hepatic encephalopathy Current Visit: Yes Status: Acute Assessment and plan: January 10. Ammonia level has decreased to 88. Continue lactulose and ri faximin. January 11. Ammonia level has decreased to 57. Trial of reducing lactulose to 30 g 3 times a day. (2) HTN (hypertension) Current Visit: No Status: Chronic Assessment and plan: January 10. Continue atenolol. Remain off chlorthalidone and Demadex. Qualifiers: Hypertension type: essential hypertension Qualified Code(s): I10 - Essential (primary) hypertension (3) DM type 2 (diabetes mellitus, type 2) Current Visit: No Status: Chronic Assessment and plan: January 10. Hemoglobin A1c was 8.4% on 10/22/2018. Accu-Cheks reviewed. Increase Levemir to 70 units twice a day and decrease Humalog to 30 units 3 times a day with meals. Toprol rate. Accu-Cheks reviewed. Morning blood sugars are low. Decrease p.m. Levemir to 50 units and continue to monitor. Qualifiers: Diabetes mellitus custodial insulin use: with rn long term care use Diabetes mellitus complication status: with hyperglycemia Qualified Code(s): E11.65 - Type 2 diabetes mellitus with hyperglycemia; Z79.4 - rn long term care (current) use of insulin (4) Hypokalemia Current Visit: No Status: Acute Assessment and plan: January 10. Potassium level still significantly low at 2.8 following initial K riders. Repeat K riders with additional 40 mEq. Increase oral KCl to 20 mEq 3 times a day. Recheck labs in a.m. January 11. Potassium level has risen to 3.0. Continue maintenance IV fluids with potassium and oral supplementation. (5) YUAN (acute kidney injury) Current Visit: No Status: Acute Assessment and plan: January 10. BUN and creatinine slightly improved to 32 and 1.57 respectively. Continue IV fluids and recheck labs in a.m. January 11. BUN and creatinine further improved at 28 and 1.2 respectively with estimated GFR 41. Continue present Rx. (6) Left shoulder pain Current Visit: Yes Status: Acute Assessment and plan: January 11. Left shoulder x-ray will be ordered. Referral to orthopedist will be done. Qualifiers: Chronicity: acute Qualified Code(s): M25.512 - Pain in left shoulder - Subjective Interval history: January 10. She has no new complaints. January 11. She complains of pain in her left shoulder. She thinks it has only been present for 1-2 days. - Constitutional Vitals: Temp Pulse Resp BP Pulse Ox 98.2 F 65 16 127/75 96 01/11/19 10:30 01/11/19 10:30 01/11/19 10:30 01/11/19 10:30 01/11/19 10:30 Exam: She is resting comfortably in bed and appears in no acute distress at rest. She has pain on IR/ER of the left shoulder. No obvious effusion or warmth is noted. Legs show no pitting edema. She is more alert and responsive in conversation. I reviewed her medications and lab results. Internal Medicine: Result - Labs CBC & Chem 7: 01/11/19 06:57 01/11/19 06:57 Labs: Short CBC 01/11/19 Range/Units 06:57 WBC 4.2 L (4.3-11.1) K/mcL Hgb 13.4 D (11.5-15.4) g/dL Hct 39.5 (35.3-44.9) % Plt Count 117 L (140-400) K/mcL Neutrophils # 2.1 (1.6-8.9) K/mcL BMP 01/10/19 01/11/19 12:54 06:57 Sodium 135 L 141 Potassium 2.8 L 3.0 L Chloride 99 107 Carbon Dioxide 27 26 BUN 32 H 28 H Creatinine 1.57 H 1.28 H Glucose 253 H 59 L Calcium 9.3 9.1 - ABG Interpretation ABG results: PT/INR, D-dimer PT 14.4 Seconds (9.4-12.1) H 01/09/19 10:39 Consult Discharge Plan - Plan Referrals: Cesar Terry MD [Primary Care Provider] - 1 week
[2019-01-11] MEDS: *HR* OxyCODONE/APAP 5/325 TABLET PO PRN (13:51)
[2019-01-11] MEDS: Fenofibrate 54 MG TABLET PO SCH (20:55)
[2019-01-11] MEDS: traMADol 50 MG TABLET PO SCH (20:56)
[2019-01-12 05:58] LABS: Basophils % 0.5 %; Eosinophils # 0.2 K/mcL (0.0-0.6); Hematocrit 37.2 % (35.3-44.9); Hemoglobin 12.7 g/dL (11.5-15.4); Immature Granulocytes % 0.3 % (0-4); Lymphocytes # 1.3 K/mcL (0.6-4.6); Lymphocytes % 32.3 %; Mean Corpuscular HGB Conc 34.1 g/dL (31.6-35.5); Mean Corpuscular Volume 93.7 fL (83.0-100.0); Mean Platelet Volume 12.5 fL (9.4-12.4); Monocytes # 0.4 K/mcL (0.0-1.3); Monocytes % 10.8 %; Neutrophils # 2.1 K/mcL (1.6-8.9); Platelet Count 104 K/mcL (140-400); Red Blood Count 3.97 M/mcL (3.82-4.97); Red Cell Distribution Width 14.9 % (11.5-14.5); Segmented Neutrophils % 52.1 %
[2019-01-12 06:23] LABS: BUN/Creatinine Ratio 18 (6-26); Blood Urea Nitrogen 17 mg/dL (8-23); Carbon Dioxide 24 mEq/L (23-29); Chloride 107 mEq/L (98-107); Glucose 161 mg/dL (70-105); Magnesium 1.6 mg/dL (1.6-2.6); Osmolality,Calculated 289 (280-300); Phosphorous 2.4 mg/dL (2.7-4.5); Potassium 3.4 mEq/L (3.5-5.1); Sodium 137 mEq/L (136-145); eGFR For African Americans > 60 (> 60); eGFR For Non-African Americans 60 (> 60)
[2019-01-12] MEDS: Insulin LISPRO 300 UNITS/3 ML VIAL SQ SCH ×6 (07:29→16:56)
[2019-01-12] MEDS: 0.45 % Sodium Chloride w/KCl 20 MEQ/1,000 ML MLS IVC SCH (08:13)
[2019-01-12] MEDS: Lactulose Oral Soln 20 GM/30 ML UDC PO SCH ×3 (08:15→21:23)
[2019-01-12] MEDS: Cholecalciferol (D-3) 1,000 UNIT (25MCG) TABLET PO SCH (08:15)
[2019-01-12] MEDS: Famotidine 20 MG TABLET PO SCH (08:15)
[2019-01-12] MEDS: *HR* OxyCODONE/APAP 5/325 TABLET PO PRN (08:23)
[2019-01-12] MEDS: Insulin DETEMIR 100 UNIT/ML X5UNITS SQ SCH ×2 (08:23→21:24)
[2019-01-12] MEDS ORDERED: Insulin DETEMIR 100 UNIT/ML X5UNITS SQ SCH ×2 (09:00→12:30)
[2019-01-12] MEDS ORDERED: Acetaminophen 325 MG TABLET PO PRN (10:22)
--- NOTE | 2019-01-12 11:35 | Internal Med Progress Note ---
Date of Encounter: 01/12/19 Time of Encounter: 11:25 - Assessment and plan (1) Hepatic encephalopathy Current Visit: Yes Status: Acute Assessment and plan: January 10. Ammonia level has decreased to 88. Continue lactulose and ri faximin. January 11. Ammonia level has decreased to 57. Trial of reducing lactulose to 30 g 3 times a day. (2) HTN (hypertension) Current Visit: No Status: Chronic Assessment and plan: January 10. Continue atenolol. Remain off chlorthalidone and Demadex. Qualifiers: Hypertension type: essential hypertension Qualified Code(s): I10 - Essential (primary) hypertension (3) DM type 2 (diabetes mellitus, type 2) Current Visit: No Status: Chronic Assessment and plan: January 10. Hemoglobin A1c was 8.4% on 10/22/2018. Accu-Cheks reviewed. Increase Levemir to 70 units twice a day and decrease Humalog to 30 units 3 times a day with meals. January 11. Accu-Cheks reviewed. Morning blood sugars are low. Decrease p.m. Levemir to 50 units and continue to monitor. Qualifiers: Diabetes mellitus longterm insulin use: with longterm use Diabetes mellitus complication status: with hyperglycemia Qualified Code(s): E11.65 - Type 2 diabetes mellitus with hyperglycemia; Z79.4 - correction (current) use of insulin (4) Hypokalemia Current Visit: No Status: Acute Assessment and plan: January 10. Potassium level still significantly low at 2.8 following initial K riders. Repeat K riders with additional 40 mEq. Increase oral KCl to 20 mEq 3 times a day. Recheck labs in a.m. January 11. Potassium level has risen to 3.0. Continue maintenance IV fluids with potassium and oral supplementation. January 12. Potassium level has risen further to 3.4. Continue oral potassium supplement. (5) YUAN (acute kidney injury) Current Visit: No Status: Acute Assessment and plan: January 10. BUN and creatinine slightly improved to 32 and 1.57 respectively. Continue IV fluids and recheck labs in a.m. January 11. BUN and creatinine further improved at 28 and 1.2 respectively with estimated GFR 41. Continue present Rx. January 12. BUN and creatinine have nearly normalized to 17 and 0.92 respectively with estimated GFR 60. (6) Left shoulder pain Current Visit: Yes Status: Acute Assessment and plan: January 11. Left shoulder x-ray will be ordered. Referral to orthopedist will be done. January 12. Shoulder x-ray showed no fracture. She will see the orthopedist on 01/14/2019. Will order scheduled Tylenol and apply BenGay. Qualifiers: Chronicity: acute Qualified Code(s): M25.512 - Pain in left shoulder (7) Hypophosphatemia Current Visit: Yes Status: Acute Assessment and plan: January 12. Phosphorus level low at 2.4. She will be given Neutra-Phos - Subjective Interval history: January 10. She has no new complaints. January 11. She complains of pain in her left shoulder. She thinks it has only been present for 1-2 days. January 12. She has no new complaints. She still has left shoulder pain. - Constitutional Vitals: Temp Pulse Resp BP Pulse Ox 98.2 F 80 17 153/84 97 01/12/19 10:55 01/12/19 10:55 01/12/19 10:55 01/12/19 10:55 01/12/19 10:55 Exam: She is resting comfortably in a chair at bedside and appears in no acute distress. Her affect is cheerful. She is appropriate in conversation with further lessening of encephalopathy symptoms. I reviewed her medications and lab results. Internal Medicine: Result - Labs CBC & Chem 7: 01/12/19 05:22 01/12/19 05:22 Labs: Short CBC 01/12/19 Range/Units 05:22 WBC 4.0 L (4.3-11.1) K/mcL Hgb 12.7 (11.5-15.4) g/dL Hct 37.2 (35.3-44.9) % Plt Count 104 L (140-400) K/mcL Neutrophils # 2.1 (1.6-8.9) K/mcL BMP 01/12/19 05:22 Sodium 137 Potassium 3.4 L Chloride 107 Carbon Dioxide 24 BUN 17 Creatinine 0.92 Glucose 161 H Calcium 9.0 - ABG Interpretation ABG results: PT/INR, D-dimer PT 14.4 Seconds (9.4-12.1) H 01/09/19 10:39 - Impressions Impressions Shoulder X-Ray 01/11/19 15:00 IMPRESSION: No acute fracture or dislocation. Minimalacromioclavicular degenerative changes. D/ / Carlitos Ritter MD / Carlitos Ritter MD Interpreting Provider: Carlitos Ritter MD Consult Discharge Plan - Plan Referrals: Cesar Terry MD [Primary Care Provider] - 1 week
[2019-01-12] MEDS: Methyl Salicylate/Menthol 28 GM TUBE TP SCH ×2 (14:00→21:23)
[2019-01-12] MEDS: Fenofibrate 54 MG TABLET PO SCH (21:23)
[2019-01-12] MEDS: traMADol 50 MG TABLET PO SCH (21:24)
[2019-01-13 06:31] LABS: BUN/Creatinine Ratio 15 (6-26); Blood Urea Nitrogen 13 mg/dL (8-23); Calcium 9.1 mg/dL (8.6-10.3); Carbon Dioxide 26 mEq/L (23-29); Chloride 107 mEq/L (98-107); Glucose 285 mg/dL (70-105); Osmolality,Calculated 292 (280-300); Potassium 3.9 mEq/L (3.5-5.1); Sodium 136 mEq/L (136-145); eGFR For African Americans > 60 (> 60); eGFR For Non-African Americans > 60 (> 60)
[2019-01-13] MEDS: Lactulose Oral Soln 20 GM/30 ML UDC PO SCH (07:55)
[2019-01-13] MEDS: Cholecalciferol (D-3) 1,000 UNIT (25MCG) TABLET PO SCH (07:58)
[2019-01-13] MEDS: *HR* OxyCODONE/APAP 5/325 TABLET PO PRN (07:58)
[2019-01-13] MEDS: Famotidine 20 MG TABLET PO SCH (07:59)
[2019-01-13] MEDS: Insulin LISPRO 300 UNITS/3 ML VIAL SQ SCH ×4 (08:00→12:17)
[2019-01-13] MEDS: Insulin DETEMIR 100 UNIT/ML X5UNITS SQ SCH (08:01)
[2019-01-13 11:15] VITALS: BP 148/74
--- NOTE | 2019-01-13 11:21 | Discharge Summary ---
Date of Encounter: 01/13/19 Time of Encounter: 11:00 - Discharge Diagnosis (1) Hepatic encephalopathy Priority: Primary Status: Acute (2) HTN (hypertension) Priority: Secondary Status: Chronic Qualifiers: Hypertension type: essential hypertension Qualified Code(s): I10 - Essential (primary) hypertension (3) DM type 2 (diabetes mellitus, type 2) Priority: Secondary Status: Chronic Qualifiers: Diabetes mellitus longterm insulin use: with longterm use Diabetes mellitus complication status: with hyperglycemia Qualified Code(s): E11.65 - Type 2 diabetes mellitus with hyperglycemia; Z79.4 - detention (current) use of insulin (4) Hypokalemia Priority: Secondary Status: Resolved (5) YUAN (acute kidney injury) Priority: Secondary Status: Resolved (6) Left shoulder pain Priority: Secondary Status: Acute Qualifiers: Chronicity: acute Qualified Code(s): M25.512 - Pain in left shoulder (7) Hypophosphatemia Priority: Secondary Status: Acute Hospital course: Ms. Rodriguez is a 73 year old female who was brought to emergency room after she had a fall at home. She was found to have altered mental status by her family. She denies syncope but states she lost her balance in the bathroom. She was evaluated in emergency room and was found to have hypokalemia, acute renal failure, hypercalcemia, and probable hepatic encephalopathy. She was admitted to [facility] for ongoing care needs. I saw her January 09 and performed a history and physical. She was restarted on rifaximin and lactulose was continued. She had significant improvement during her acute-care stay with return to baseline mental status and ammonia level decreasing to 57 by January 11. Supplemental potassium was given by oral and IV routes. Hypokalemia had resolved by January 13. She will have ongoing lab monitoring in swing bed. Phosphorus level returned low and she will be given supplemental phosphorus with labs monitored. Azotemia resolved with IV fluids and discontinuation of diuretics. She had no edema developed off diuretics. BUN and creatinine were normal at 13 and 0.84 respectively on January 13. Blood sugars were monitored. Levemir dose was adjusted to 75 units a.m. and 50 units p.m. Physical therapy and occupational therapy evaluations with ongoing intervention were done. She made satisfactory progress. It was felt she would benefit from additional therapy in swing bed. On October 10 she was discharged to swing bed for ongoing care needs. - Time Spent with Patient Total time spent providing and/or coordinating discharge services: - Discharge Medications Prescriptions: New Methyl Salicylate/Menthol [Bengay] 1 appl TP BID tube Lactulose 30 gm PO TID udc Insulin DETEMIR [Levemir] 50 unit SQ HS [id number] Insulin DETEMIR [Levemir] 75 unit SQ QAM [id number] Mag Hydrox/Al Hydrox/Simeth [Maalox] 15 ml PO Q6HR PRN udc PRN Reason: Dyspepsia MOM Conc [MILK OF MAGNESIA conc] 10 ml PO DAILY PRN ud.liq PRN Reason: Constipation Phos-NaK [Neutra-Phos] 1 each PO BID powd.pack Rifaximin [Xifaxan] 550 mg PO BID tablet Acetaminophen [Tylenol] 650 mg PO Q6HR PRN tablet PRN Reason: Pain Continued Guaifenesin [Mucus Relief] 400 mg PO Q12H PRN PRN Reason: Congestion Ferrous Sulfate [Iron] 325 mg PO BID Clopidogrel Bisulfate [Plavix] 75 mg PO DAILY Alirocumab [Praluent Pen] 75 mg SQ Q2W Esomeprazole Magnesium [Nexium] 40 mg PO DAILY PRN #0 PRN Reason: Dyspepsia Tramadol HCl [Ultram] 50 mg PO HS Oxycodone HCl/Acetaminophen [Percocet 5-325 mg Tablet] 1 each PO TID PRN PRN Reason: Pain Ranitidine HCl [Acid Talent Acquisition Coordinator] 150 mg PO DAILY Cholecalciferol (D-3) [Vitamin D] 1,000 unit PO DAILY Fenofibrate,Micronized [Fenofibrate] 200 mg PO DAILY Atenolol [Tenormin] 50 mg PO DAILY Benzonatate [Tessalon] 200 mg PO TID PRN PRN Reason: Cough Discontinued Lactulose 20 gm PO QID #120 udc Insulin Glargine,Hum.rec.anlog [Basaglar Kwikpen U-100] 65 unit SQ BID Insulin ASPART [NovoLOG] 40 - 46 unit SQ TIDWM Loratadine [Claritin] 10 mg PO DAILY Chlorthalidone 25 mg PO DAILY Torsemide [Demadex] 20 mg PO DAILY Potassium Chloride [K-Tab ER] 20 meq PO BID Home Medications: Alirocumab [Praluent Pen] 75 mg SQ Q2W 10/21/18 [History] Clopidogrel Bisulfate [Plavix] 75 mg PO DAILY 10/21/18 [History] Guaifenesin [Mucus Relief] 400 mg PO Q12H PRN 10/25/18 [History] Ferrous Sulfate [Iron] 325 mg PO BID 12/09/18 [History] Esomeprazole Magnesium [Nexium] 40 mg PO DAILY PRN #0 12/27/18 [Rx] Atenolol [Tenormin] 50 mg PO DAILY 01/09/19 [History] Benzonatate [Tessalon] 200 mg PO TID PRN 01/09/19 [History] Cholecalciferol (D-3) [Vitamin D] 1,000 unit PO DAILY 01/09/19 [History] Fenofibrate,Micronized [Fenofibrate] 200 mg PO DAILY 01/09/19 [History] Oxycodone HCl/Acetaminophen [Percocet 5-325 mg Tablet] 1 each PO TID PRN 01/09/19 [History] Ranitidine HCl [Acid Talent Acquisition Coordinator] 150 mg PO DAILY 01/09/19 [History] Tramadol HCl [Ultram] 50 mg PO HS 01/09/19 [History] Acetaminophen [Tylenol] 650 mg PO Q6HR PRN tablet 01/13/19 [Rx] Insulin DETEMIR [Levemir] 50 unit SQ HS [id number] 01/13/19 [Rx] Insulin DETEMIR [Levemir] 75 unit SQ QAM [id number] 01/13/19 [Rx] Lactulose 30 gm PO TID udc 01/13/19 [Rx] MOM Conc [MILK OF MAGNESIA conc] 10 ml PO DAILY PRN ud.liq 01/13/19 [Rx] Mag Hydrox/Al Hydrox/Simeth [Maalox] 15 ml PO Q6HR PRN udc 01/13/19 [Rx] Methyl Salicylate/Menthol [Bengay] 1 appl TP BID tube 01/13/19 [Rx] Phos-NaK [Neutra-Phos] 1 each PO BID powd.pack 01/13/19 [Rx] Rifaximin [Xifaxan] 550 mg PO BID tablet 01/13/19 [Rx] Allergies/Adverse Reactions: Allergy/AdvReac Type Severity Reaction Status Date / Time lisinopril Allergy See Verified 12/08/18 15:55 Comments losartan Allergy See Verified 12/08/18 15:55 Comments codeine AdvReac Nausea Verified 10/21/18 21:33 rosuvastatin [From Crestor] AdvReac See Verified 10/21/18 21:33 Comments Sulfa (Sulfonamide AdvReac Cough Verified 10/21/18 21:33 Antibiotics) Date of admission: 01/10/19 16:45 Primary care physician: Cesar Terry MD Consults: 01/09/19 14:14 Consult to Nutrition [CONS] Routine Comment: Consulting Provider: NUTRITION Reason for Dietary Consult: MST Score Consult to Pastoral Services [CONS] Routine Comment: Consult to Yarder [CONS] Routine Reason for SW Consult: Pt currently using PASSPORT at home, takes care of disabled , son and [id number] close by, multiple falls and multiple increase in confusion reoccuring. 01/11/19 10:37 Consult to Occupational Therapy [CONS] Routine Comment: Evaluate, develop and implement POC Reason for Consult: weakness Does patient have active BEDREST order?: No Is patient medically & hemodynamically stable?: Yes Patient assessed for mobility or mobilized this visit?: Yes Consult to Physical Therapy [CONS] Routine Comment: Evaluate, develop and implement POC Reason for Consult: weakness Does patient have active BEDREST order?: No Is patient medically & hemodynamically stable?: Yes Patient assessed for mobility or mobilized this visit?: Yes - Constitutional Vitals: Temp Pulse Resp BP Pulse Ox 98.3 F 92 17 156/75 96 01/13/19 04:21 01/13/19 07:08 01/13/19 07:08 01/13/19 07:08 01/13/19 07:08 - Patient Status Disposition: Transfer Hospital Swing Bed Condition: Fair - Discharge Instructions Forms: ED Satisfaction Letter - Diet and Activity Activity: as per physical therapy Diet: diabetic diet
[2019-01-13] MEDS: Methyl Salicylate/Menthol 28 GM TUBE TP SCH (12:03)
== END 2019-01-13 14:21 | disposition other institution (70) | DRG 442 ==
LOC: INPPIK 10:20 → EMEROOPIK 10:20 → INPPIK 13:40
PROVIDERS: ADMIT Internal Medicine; ATTEND Internal Medicine

== ENCOUNTER 2019-01-13 14:26 | Inpatient (IN) ==
[2019-01-13] MEDS ORDERED: GuaiFENesin Liq 200 MG/10 ML UDC PO PRN (14:35)
[2019-01-13] MEDS ORDERED: Acetaminophen 325 MG TABLET PO PRN (14:35)
[2019-01-13] MEDS ORDERED: MOM Conc 10 ML UD.LIQ PO PRN (14:35)
[2019-01-13] MEDS ORDERED: Mag Hydrox/Al Hydrox/Simeth 30 ML UDC PO PRN (14:35)
[2019-01-13] MEDS: Lactulose Oral Soln 20 GM/30 ML UDC PO SCH ×2 (17:03→21:08)
[2019-01-13] MEDS ORDERED: D5% in Water 1,000 ML IVC PRN (17:54)
[2019-01-13] MEDS ORDERED: Dextrose Gel 15 GM/37.5 ML TUBE PO PRN ×2 (17:54)
[2019-01-13] MEDS ORDERED: *HR* Dextrose 50 % in Water (Syg) 50 ML SYRINGE IVP PRN (17:54)
[2019-01-13] MEDS: Methyl Salicylate/Menthol 28 GM TUBE TP SCH (21:06)
[2019-01-13] MEDS: traMADol 50 MG TABLET PO SCH (21:08)
[2019-01-13] MEDS: Insulin LISPRO 300 UNITS/3 ML VIAL SQ SCH (21:10)
[2019-01-13] MEDS: Insulin DETEMIR 100 UNIT/ML X5UNITS SQ SCH (21:10)
[2019-01-14 05:56] LABS: Basophils % 0.5 %; Eosinophils # 0.2 K/mcL (0.0-0.6); Eosinophils % 4.4 %; Hematocrit 37.4 % (35.3-44.9); Hemoglobin 12.7 g/dL (11.5-15.4); Immature Granulocytes % 0.5 % (0-4); Lymphocytes # 1.4 K/mcL (0.6-4.6); Lymphocytes % 33.2 %; Mean Corpuscular Hemoglobin 32.1 pg (28.0-33.3); Mean Corpuscular Volume 94.4 fL (83.0-100.0); Mean Platelet Volume 12.4 fL (9.4-12.4); Monocytes # 0.4 K/mcL (0.0-1.3); Monocytes % 9.7 %; Neutrophils # 2.3 K/mcL (1.6-8.9); Platelet Count 108 K/mcL (140-400); Red Blood Count 3.96 M/mcL (3.82-4.97); Red Cell Distribution Width 15.3 % (11.5-14.5); Segmented Neutrophils % 51.7 %; White Blood Count 4.3 K/mcL (4.3-11.1)
[2019-01-14 06:06] LABS: INR 1.3; Prothrombin Time 14.4 Seconds (9.4-12.1)
[2019-01-14 06:09] LABS: Activated Partial Thrombo Time 34.6 Seconds (26.0-36.0)
[2019-01-14 06:23] LABS: BUN/Creatinine Ratio 17 (6-26); Blood Urea Nitrogen 12 mg/dL (8-23); Carbon Dioxide 24 mEq/L (23-29); Chloride 109 mEq/L (98-107); Glucose 127 mg/dL (70-105); Osmolality,Calculated 287 (280-300); Potassium 3.5 mEq/L (3.5-5.1); Sodium 138 mEq/L (136-145); eGFR For African Americans > 60 (> 60); eGFR For Non-African Americans > 60 (> 60)
[2019-01-14] MEDS: Insulin LISPRO 300 UNITS/3 ML VIAL SQ SCH ×4 (07:40→20:31)
[2019-01-14] MEDS: Lactulose Oral Soln 20 GM/30 ML UDC PO SCH ×3 (07:58→20:30)
[2019-01-14] MEDS: *HR* OxyCODONE/APAP 5/325 TABLET PO PRN ×2 (07:59→18:54)
[2019-01-14] MEDS: Methyl Salicylate/Menthol 28 GM TUBE TP SCH ×2 (07:59→20:31)
[2019-01-14] MEDS: Famotidine 20 MG TABLET PO SCH (07:59)
[2019-01-14] MEDS: Cholecalciferol (D-3) 1,000 UNIT (25MCG) TABLET PO SCH (07:59)
[2019-01-14] MEDS: Fenofibrate 54 MG TABLET PO SCH (07:59)
[2019-01-14] MEDS: Insulin DETEMIR 100 UNIT/ML X5UNITS SQ SCH ×2 (07:59→20:33)
--- NOTE | 2019-01-14 14:54 | Internal Med Progress Note ---
Date of Encounter: 01/14/19 Time of Encounter: 14:45 - Assessment and plan (1) Weakness Current Visit: Yes Status: Acute Assessment and plan: January 14. Continue PT/OT intervention. (2) HTN (hypertension) Current Visit: No Status: Chronic Assessment and plan: January 14. Continue atenolol. Qualifiers: Hypertension type: essential hypertension Qualified Code(s): I10 - Esse ntial (primary) hypertension (3) DM type 2 (diabetes mellitus, type 2) Current Visit: No Status: Chronic Assessment and plan: January 14. Continue Levemir and Accu-Cheks with SSI. Qualifiers: Diabetes mellitus retirement insulin use: with tank terminal gauger use Diabetes mellitus complication status: with hyperglycemia Qualified Code(s): E11.65 - Type 2 diabetes mellitus with hyperglycemia; Z79.4 - retirement (current) use of insulin (4) Hepatic encephalopathy Current Visit: No Status: Acute Assessment and plan: January 14. Continue rifaximin and lactulose. (5) Left shoulder pain Current Visit: No Status: Acute Assessment and plan: January 14. Plan as per orthopedist. Qualifiers: Chronicity: acute Qualified Code(s): M25.512 - Pain in left shoulder (6) Hypophosphatemia Current Visit: No Status: Acute Assessment and plan: January 14. Continue Neutra-Phos. (7) Low vitamin D level Current Visit: Yes Status: Acute Assessment and plan: January 14. Vitamin D level was 20 on 12/16/2018. Continue supplemental vitamin D. - Subjective Interval history: January 14. She was hospitalized [facility] acute-care January 09 after presenting with a fall. She was treated for hepatic encephalopathy with significant improvement. It was felt she would benefit from ongoing therapy in swing bed. She was seen by [facility] staff earlier today for left shoulder pain from the fall at home. She is now wearing a left arm sling. She has no new complaints. - Constitutional Vitals: Temp Pulse Resp BP Pulse Ox 98.2 F 87 16 151/77 96 01/14/19 06:54 01/14/19 06:54 01/14/19 06:54 01/14/19 06:54 01/14/19 06:54 Exam: She is resting comfortably in bed and appears in no acute distress. She is alert and appropriate in conversation. She has 0-trace pitting edema of her lower legs. I reviewed her medications and lab results. Internal Medicine: Result - Labs CBC & Chem 7: 01/14/19 05:30 01/14/19 05:30 Labs: Short CBC 01/14/19 Range/Units 05:30 WBC 4.3 (4.3-11.1) K/mcL Hgb 12.7 (11.5-15.4) g/dL Hct 37.4 (35.3-44.9) % Plt Count 108 L (140-400) K/mcL Neutrophils # 2.3 (1.6-8.9) K/mcL BMP 01/14/19 05:30 Sodium 138 Potassium 3.5 Chloride 109 H Carbon Dioxide 24 BUN 12 Creatinine 0.69 Glucose 127 H Calcium 9.0 - ABG Interpretation ABG results: PT/INR, D-dimer PT 14.4 Seconds (9.4-12.1) H 01/14/19 05:30 Consult Discharge Plan - Plan Referrals: Cesar Terry MD [Primary Care Provider] - 1 week
[2019-01-14] MEDS ORDERED: *HR* Dextrose 50 % in Water (Vial) 50 ML VIAL IVP PRN (17:15)
[2019-01-14] MEDS: traMADol 50 MG TABLET PO SCH (20:33)
[2019-01-15] MEDS: *HR* OxyCODONE/APAP 5/325 TABLET PO PRN ×3 (02:46→17:06)
[2019-01-15 06:26] LABS: BUN/Creatinine Ratio 15 (6-26); Blood Urea Nitrogen 11 mg/dL (8-23); Carbon Dioxide 26 mEq/L (23-29); Chloride 105 mEq/L (98-107); Glucose 147 mg/dL (70-105); Osmolality,Calculated 286 (280-300); Phosphorous 2.8 mg/dL (2.7-4.5); Potassium 3.5 mEq/L (3.5-5.1); Sodium 137 mEq/L (136-145); eGFR For African Americans > 60 (> 60); eGFR For Non-African Americans > 60 (> 60)
[2019-01-15] MEDS: Insulin LISPRO 300 UNITS/3 ML VIAL SQ SCH ×4 (07:56→22:33)
[2019-01-15] MEDS: Lactulose Oral Soln 20 GM/30 ML UDC PO SCH ×3 (08:45→22:32)
[2019-01-15] MEDS: Fenofibrate 54 MG TABLET PO SCH (08:47)
[2019-01-15] MEDS: Famotidine 20 MG TABLET PO SCH (08:47)
[2019-01-15] MEDS: Cholecalciferol (D-3) 1,000 UNIT (25MCG) TABLET PO SCH (08:47)
[2019-01-15] MEDS: Methyl Salicylate/Menthol 28 GM TUBE TP SCH ×2 (08:50→22:35)
[2019-01-15] MEDS: Insulin DETEMIR 100 UNIT/ML X5UNITS SQ SCH ×2 (08:51→22:33)
[2019-01-15] MEDS: traMADol 50 MG TABLET PO SCH (22:33)
[2019-01-16] MEDS: *HR* OxyCODONE/APAP 5/325 TABLET PO PRN ×2 (03:15→10:27)
[2019-01-16] MEDS: Famotidine 20 MG TABLET PO SCH (09:16)
[2019-01-16] MEDS: Fenofibrate 54 MG TABLET PO SCH (09:16)
[2019-01-16] MEDS: Lactulose Oral Soln 20 GM/30 ML UDC PO SCH ×3 (09:17→22:04)
[2019-01-16] MEDS: Cholecalciferol (D-3) 1,000 UNIT (25MCG) TABLET PO SCH (09:17)
[2019-01-16] MEDS: Insulin LISPRO 300 UNITS/3 ML VIAL SQ SCH ×4 (09:40→22:05)
[2019-01-16] MEDS: Insulin DETEMIR 100 UNIT/ML X5UNITS SQ SCH ×2 (09:41→22:05)
[2019-01-16] MEDS: Methyl Salicylate/Menthol 28 GM TUBE TP SCH ×2 (09:43→22:03)
[2019-01-16] MEDS: Acetaminophen 325 MG TABLET PO SCH ×2 (13:23→17:12)
--- NOTE | 2019-01-16 13:55 | Internal Med Progress Note ---
Date of Encounter: 01/16/19 Time of Encounter: 13:48 - Assessment and plan (1) Weakness Current Visit: Yes Status: Acute Assessment and plan: January 14. Continue PT/OT intervention. (2) HTN (hypertension) Current Visit: No Status: Chronic Assessment and plan: January 14. Continue atenolol. Qualifiers: Hypertension type: essential hypertension Qualified Code(s): I10 - Esse ntial (primary) hypertension (3) DM type 2 (diabetes mellitus, type 2) Current Visit: No Status: Chronic Assessment and plan: January 14. Continue Levemir and Accu-Cheks with SSI. Qualifiers: Diabetes mellitus mcc insulin use: with buttermaker helper use Diabetes mellitus complication status: with hyperglycemia Qualified Code(s): E11.65 - Type 2 diabetes mellitus with hyperglycemia; Z79.4 - halfway (current) use of insulin (4) Hepatic encephalopathy Current Visit: No Status: Acute Assessment and plan: January 14. Continue rifaximin and lactulose. (5) Left shoulder pain Current Visit: No Status: Acute Assessment and plan: January 14. Plan as per orthopedist. January 16. She reports she was to have left shoulder MRI before return visit to the orthopedist. No order is noted at this time. Will order. Continue present analgesic Rx. Qualifiers: Chronicity: acute Qualified Code(s): M25.512 - Pain in left shoulder (6) Hypophosphatemia Current Visit: No Status: Acute Assessment and plan: January 14. Continue Neutra-Phos. January 16. Recheck labs in a.m. (7) Low vitamin D level Current Visit: Yes Status: Acute Assessment and plan: January 14. Vitamin D level was 20 on 12/16/2018. Continue supplemental vitamin D. - Subjective Interval history: January 14. She was hospitalized [facility] acute-care January 09- after presenting with a fall. She was treated for hepatic encephalopathy with significant improvement. It was felt she would benefit from ongoing therapy in swing bed. She was seen by [facility] staff earlier today for left shoulder pain from the fall at home. She is now wearing a left arm sling. She has no new complaints. January 16. She has no new complaints. - Constitutional Vitals: Temp Pulse Resp BP Pulse Ox 98.1 F 82 20 140/71 93 01/16/19 07:10 01/16/19 07:10 01/16/19 07:10 01/16/19 07:10 01/16/19 07:10 Exam: She is resting comfortably in bed and appears in no acute distress. Right arm/shoulder ecchymosis has lessened. Extremities show 0-trace pitting edema bilaterally. Heart is regular without murmurs gallops or ectopics. Lungs are clear anteriorly. I reviewed her medications and lab results. Internal Medicine: Result - Labs CBC & Chem 7: 01/14/19 05:30 01/15/19 05:09 - ABG Interpretation ABG results: PT/INR, D-dimer PT 14.4 Seconds (9.4-12.1) H 01/14/19 05:30 Consult Discharge Plan - Plan Referrals: Cesar Terry MD [Primary Care Provider] - 1 week
[2019-01-16] MEDS: traMADol 50 MG TABLET PO SCH (22:04)
[2019-01-17] MEDS: Acetaminophen 325 MG TABLET PO SCH ×4 (00:22→18:58)
[2019-01-17] MEDS: *HR* OxyCODONE/APAP 5/325 TABLET PO PRN (07:50)
[2019-01-17 07:52] LABS: BUN/Creatinine Ratio 15 (6-26); Blood Urea Nitrogen 11 mg/dL (8-23); Calcium 9.1 mg/dL (8.6-10.3); Carbon Dioxide 27 mEq/L (23-29); Chloride 105 mEq/L (98-107); Glucose 176 mg/dL (70-105); Osmolality,Calculated 288 (280-300); Potassium 3.8 mEq/L (3.5-5.1); Sodium 137 mEq/L (136-145); eGFR For African Americans > 60 (> 60); eGFR For Non-African Americans > 60 (> 60)
[2019-01-17] MEDS: Lactulose Oral Soln 20 GM/30 ML UDC PO SCH ×3 (09:18→20:23)
[2019-01-17] MEDS: Cholecalciferol (D-3) 1,000 UNIT (25MCG) TABLET PO SCH (09:19)
[2019-01-17] MEDS: Famotidine 20 MG TABLET PO SCH (09:19)
[2019-01-17] MEDS: Fenofibrate 54 MG TABLET PO SCH (09:19)
[2019-01-17] MEDS: Methyl Salicylate/Menthol 28 GM TUBE TP SCH ×2 (09:20→20:25)
[2019-01-17] MEDS: Insulin DETEMIR 100 UNIT/ML X5UNITS SQ SCH ×2 (09:20→20:22)
[2019-01-17] MEDS: Insulin LISPRO 300 UNITS/3 ML VIAL SQ SCH ×4 (09:21→20:24)
[2019-01-17] MEDS: traMADol 50 MG TABLET PO SCH (20:23)
[2019-01-18] MEDS: Acetaminophen 325 MG TABLET PO SCH ×5 (00:13→23:00)
[2019-01-18] MEDS: *HR* OxyCODONE/APAP 5/325 TABLET PO PRN ×2 (01:26→13:49)
[2019-01-18] MEDS: Methyl Salicylate/Menthol 28 GM TUBE TP SCH ×2 (09:05→21:12)
[2019-01-18] MEDS: Insulin DETEMIR 100 UNIT/ML X5UNITS SQ SCH ×2 (09:05→21:14)
[2019-01-18] MEDS: Fenofibrate 54 MG TABLET PO SCH (09:05)
[2019-01-18] MEDS: Famotidine 20 MG TABLET PO SCH (09:05)
[2019-01-18] MEDS: Lactulose Oral Soln 20 GM/30 ML UDC PO SCH ×3 (09:05→21:14)
[2019-01-18] MEDS: Cholecalciferol (D-3) 1,000 UNIT (25MCG) TABLET PO SCH (09:05)
[2019-01-18] MEDS: Insulin LISPRO 300 UNITS/3 ML VIAL SQ SCH ×4 (09:12→21:12)
--- NOTE | 2019-01-18 15:37 | Internal Med Progress Note ---
Date of Encounter: 01/18/19 Time of Encounter: 15:25 - Assessment and plan (1) Weakness Current Visit: Yes Status: Acute Assessment and plan: January 14. Continue PT/OT intervention. (2) HTN (hypertension) Current Visit: No Status: Chronic Assessment and plan: January 14. Continue atenolol. Qualifiers: Hypertension type: essential hypertension Qualified Code(s): I10 - Esse ntial (primary) hypertension (3) DM type 2 (diabetes mellitus, type 2) Current Visit: No Status: Chronic Assessment and plan: January 14. Continue Levemir and Accu-Cheks with SSI. January 18. Blood sugars reviewed. Increase a.m. dose of Levemir to 80 units. Qualifiers: Diabetes mellitus ocean transportation intermediary insulin use: with senior living use Diabetes mellitus complication status: with hyperglycemia Qualified Code(s): E11.65 - Type 2 diabetes mellitus with hyperglycemia; Z79.4 - snf (current) use of insulin (4) Hepatic encephalopathy Current Visit: No Status: Acute Assessment and plan: January 14. Continue rifaximin and lactulose. (5) Left shoulder pain Current Visit: No Status: Acute Assessment and plan: January 14. Plan as per orthopedist. January 16. She reports she was to have left shoulder MRI before return visit to the orthopedist. No order is noted at this time. Will order. Continue present analgesic Rx. January 18. MRI report reviewed with patient showing supraspinatus injury. She will follow with the orthopedist tomorrow for planning additional Rx. Qualifiers: Chronicity: acute Qualified Code(s): M25.512 - Pain in left shoulder (6) Hypophosphatemia Current Visit: No Status: Acute Assessment and plan: January 14. Continue Neutra-Phos. January 16. Recheck labs in a.m. January 18. Phosphorus level WNL at 3.0. Decrease Neutra-Phos to 1 dose daily. (7) Low vitamin D level Current Visit: Yes Status: Acute Assessment and plan: January 14. Vitamin D level was 20 on 12/16/2018. Continue supplemental vitamin D. - Subjective Interval history: January 14. She was hospitalized [facility] acute-care January 09- after presenting with a fall. She was treated for hepatic encephalopathy with significant improvement. It was felt she would benefit from ongoing therapy in swing bed. She was seen by [facility] staff earlier today for left shoulder pain from the fall at home. She is now wearing a left arm sling. She has no new complaints. January 16. She has no new complaints. January 18. She has no new complaints. She reports ongoing pain in her left shoulder area. She completed MRI earlier today. - Constitutional Vitals: Temp Pulse Resp BP Pulse Ox 98.5 F 84 16 156/77 94 01/18/19 07:27 01/18/19 07:27 01/18/19 07:27 01/18/19 07:27 01/18/19 07:27 Exam: She is sitting in a chair at bedside resting comfortably. Left arm sling is in place. Extremities show trace edema bilaterally of the lower anterior shins and dorsum of the feet. I reviewed her medications and lab results. Internal Medicine: Result - Labs CBC & Chem 7: 01/14/19 05:30 01/17/19 07:08 - ABG Interpretation ABG results: PT/INR, D-dimer PT 14.4 Seconds (9.4-12.1) H 01/14/19 05:30 - Impressions Impressions Shoulder MRI 01/18/19 12:55 IMPRESSION: 1. Low-grade partial-thickness articular surface tearing involving the articular surface at the anterior supraspinatus. Low-grade partial-thickness interstitial tearing of posterior supraspinatus in the critical zone. Moderate to severe underlying supraspinatus tendinopathy. 2. Mild to moderate infraspinatus tendinopathy. 3. Mild subscapularis tendinopathy. 4. Mild labral degeneration. 5. Mild glenohumeral chondromalacia. 6. Mild degenerative changes of the left AC joint. D/ / 01/18/2019 13:16:31 Ashish White MD / Joelle Limon Interpreting Provider: Ashish White MD Consult Discharge Plan - Plan Referrals: Cesar Terry MD [Primary Care Provider] - 1 week
[2019-01-18] MEDS: traMADol 50 MG TABLET PO SCH (21:12)
[2019-01-18] MEDS: Benzonatate 100 MG CAPSULE PO PRN (23:04)
[2019-01-18] MEDS: traZODone 50 MG TABLET PO PRN (23:35)
[2019-01-19] MEDS: Acetaminophen 325 MG TABLET PO SCH ×4 (05:07→22:54)
[2019-01-19] MEDS: Famotidine 20 MG TABLET PO SCH (09:37)
[2019-01-19] MEDS: Fenofibrate 54 MG TABLET PO SCH (09:37)
[2019-01-19] MEDS: *HR* OxyCODONE/APAP 5/325 TABLET PO PRN (09:38)
[2019-01-19] MEDS: Methyl Salicylate/Menthol 28 GM TUBE TP SCH ×2 (09:38→20:14)
[2019-01-19] MEDS: Cholecalciferol (D-3) 1,000 UNIT (25MCG) TABLET PO SCH (09:38)
[2019-01-19] MEDS: Insulin LISPRO 300 UNITS/3 ML VIAL SQ SCH ×4 (09:38→20:15)
[2019-01-19] MEDS: Lactulose Oral Soln 20 GM/30 ML UDC PO SCH ×3 (09:38→20:13)
[2019-01-19] MEDS: Insulin DETEMIR 100 UNIT/ML X5UNITS SQ SCH ×2 (09:39→20:14)
[2019-01-19] MEDS: traMADol 50 MG TABLET PO SCH (20:14)
[2019-01-19] MEDS: Benzonatate 100 MG CAPSULE PO PRN (20:24)
[2019-01-19] MEDS: traZODone 50 MG TABLET PO PRN (22:58)
[2019-01-20] MEDS: Acetaminophen 325 MG TABLET PO SCH ×3 (06:10→16:58)
[2019-01-20] MEDS: *HR* OxyCODONE/APAP 5/325 TABLET PO PRN (07:01)
[2019-01-20] MEDS: Insulin LISPRO 300 UNITS/3 ML VIAL SQ SCH ×4 (07:21→20:43)
[2019-01-20] MEDS: Famotidine 20 MG TABLET PO SCH (07:33)
[2019-01-20] MEDS: Fenofibrate 54 MG TABLET PO SCH (07:33)
[2019-01-20] MEDS: Cholecalciferol (D-3) 1,000 UNIT (25MCG) TABLET PO SCH (07:33)
[2019-01-20] MEDS: Lactulose Oral Soln 20 GM/30 ML UDC PO SCH ×3 (07:33→20:41)
[2019-01-20] MEDS: Methyl Salicylate/Menthol 28 GM TUBE TP SCH ×2 (07:33→20:41)
[2019-01-20] MEDS: Insulin DETEMIR 100 UNIT/ML X5UNITS SQ SCH ×2 (09:13→20:42)
--- NOTE | 2019-01-20 12:46 | Internal Med Progress Note ---
Date of Encounter: 01/20/19 Time of Encounter: 12:38 - Assessment and plan (1) Weakness Current Visit: Yes Status: Acute Assessment and plan: January 14. Continue PT/OT intervention. (2) HTN (hypertension) Current Visit: No Status: Chronic Assessment and plan: January 14. Continue atenolol. Qualifiers: Hypertension type: essential hypertension Qualified Code(s): I10 - Esse ntial (primary) hypertension (3) DM type 2 (diabetes mellitus, type 2) Current Visit: No Status: Chronic Assessment and plan: January 14. Continue Levemir and Accu-Cheks with SSI. January 18. Blood sugars reviewed. Increase a.m. dose of Levemir to 80 units. January 20. Blood sugars are satisfactory. Continue present Rx. Qualifiers: Diabetes mellitus remote computer terminal operator insulin use: with snf use Diabetes mellitus complication status: with hyperglycemia Qualified Code(s): E11.65 - Type 2 diabetes mellitus with hyperglycemia; Z79.4 - terminal make up operator (current) use of insulin (4) Hepatic encephalopathy Current Visit: No Status: Acute Assessment and plan: January 14. Continue rifaximin and lactulose. (5) Left shoulder pain Current Visit: No Status: Acute Assessment and plan: January 14. Plan as per orthopedist. January 16. She reports she was to have left shoulder MRI before return visit to the orthopedist. No order is noted at this time. Will order. Continue present analgesic Rx. January 18. MRI report reviewed with patient showing supraspinatus injury. She will follow with the orthopedist tomorrow for planning additional Rx. January 20. Nonsurgical Rx planned at this time. Qualifiers: Chronicity: acute Qualified Code(s): M25.512 - Pain in left shoulder (6) Hypophosphatemia Current Visit: No Status: Acute Assessment and plan: January 14. Continue Neutra-Phos. January 16. Recheck labs in a.m. January 18. Phosphorus level WNL at 3.0. Decrease Neutra-Phos to 1 dose daily. January 20. Recheck labs in a.m. (7) Low vitamin D level Current Visit: Yes Status: Acute Assessment and plan: January 14. Vitamin D level was 20 on 12/16/2018. Continue supplemental vitamin D. - Subjective Interval history: January 14. She was hospitalized [facility] acute-care January 09 after presenting with a fall. She was treated for hepatic encephalopathy with significant improvement. It was felt she would benefit from ongoing therapy in swing bed. She was seen by [facility] staff earlier today for left shoulder pain from the fall at home. She is now wearing a left arm sling. She has no new complaints. January 16. She has no new complaints. January 18. She has no new complaints. She reports ongoing pain in her left shoulder area. She completed MRI earlier today. January 20. She has no new complaints. She saw the orthopedist this morning who recommended nonsurgical Rx for left shoulder injury. - Constitutional Vitals: Temp Pulse Resp BP Pulse Ox 98.1 F 86 17 144/69 94 01/20/19 07:13 01/20/19 07:13 01/20/19 07:13 01/20/19 07:13 01/20/19 07:13 Exam: She is sitting in a chair at bedside resting comfortably. Her extremities show trace edema of the lower anterior alvarez bilaterally. Her affect is bright and cheerful. I reviewed her medications and lab results. Internal Medicine: Result - Labs CBC & Chem 7: 01/14/19 05:30 01/17/19 07:08 - ABG Interpretation ABG results: PT/INR, D-dimer PT 14.4 Seconds (9.4-12.1) H 01/14/19 05:30 Consult Discharge Plan - Plan Referrals: Cesar Terry MD [Primary Care Provider] - 1 week
[2019-01-20] MEDS: traMADol 50 MG TABLET PO SCH (21:05)
[2019-01-21] MEDS: Benzonatate 100 MG CAPSULE PO PRN ×2 (02:04→15:36)
[2019-01-21] MEDS: Acetaminophen 325 MG TABLET PO SCH ×4 (02:04→15:36)
[2019-01-21] MEDS: traMADol 50 MG TABLET PO SCH ×2 (02:06→21:45)
[2019-01-21] MEDS: *HR* OxyCODONE/APAP 5/325 TABLET PO PRN (06:02)
[2019-01-21] MEDS: Lactulose Oral Soln 20 GM/30 ML UDC PO SCH ×3 (09:14→21:46)
[2019-01-21] MEDS: Fenofibrate 54 MG TABLET PO SCH (09:15)
[2019-01-21] MEDS: Insulin DETEMIR 100 UNIT/ML X5UNITS SQ SCH ×2 (09:16→21:50)
[2019-01-21] MEDS: Famotidine 20 MG TABLET PO SCH (09:16)
[2019-01-21] MEDS: Methyl Salicylate/Menthol 28 GM TUBE TP SCH ×2 (09:17→21:47)
[2019-01-21] MEDS: Insulin LISPRO 300 UNITS/3 ML VIAL SQ SCH ×4 (09:17→21:51)
[2019-01-21] MEDS: Cholecalciferol (D-3) 1,000 UNIT (25MCG) TABLET PO SCH (09:17)
[2019-01-21 09:55] LABS: Estimated Average Glucose 171 mg/dl
[2019-01-21] MEDS: traZODone 50 MG TABLET PO PRN (21:57)
[2019-01-22] MEDS: Acetaminophen 325 MG TABLET PO SCH ×5 (01:36→23:19)
[2019-01-22] MEDS: Benzonatate 100 MG CAPSULE PO PRN ×2 (01:37→10:46)
[2019-01-22] MEDS: Lactulose Oral Soln 20 GM/30 ML UDC PO SCH ×3 (10:30→21:23)
[2019-01-22] MEDS: Fenofibrate 54 MG TABLET PO SCH (10:30)
[2019-01-22] MEDS: Cholecalciferol (D-3) 1,000 UNIT (25MCG) TABLET PO SCH (10:30)
[2019-01-22] MEDS: Famotidine 20 MG TABLET PO SCH (10:31)
[2019-01-22] MEDS: Insulin LISPRO 300 UNITS/3 ML VIAL SQ SCH ×4 (10:34→21:24)
[2019-01-22] MEDS: Insulin DETEMIR 100 UNIT/ML X5UNITS SQ SCH ×2 (10:46→21:23)
[2019-01-22] MEDS: Methyl Salicylate/Menthol 28 GM TUBE TP SCH ×2 (10:47→21:22)
[2019-01-22] MEDS: traMADol 50 MG TABLET PO SCH (21:23)
[2019-01-22] MEDS: traZODone 50 MG TABLET PO PRN (21:23)
[2019-01-23] MEDS: Benzonatate 100 MG CAPSULE PO PRN (03:36)
[2019-01-23] MEDS: Acetaminophen 325 MG TABLET PO SCH ×2 (05:42→12:23)
[2019-01-23 07:01] VITALS: BP 176/73
[2019-01-23] MEDS: Fenofibrate 54 MG TABLET PO SCH (08:53)
[2019-01-23] MEDS: Cholecalciferol (D-3) 1,000 UNIT (25MCG) TABLET PO SCH (08:53)
[2019-01-23] MEDS: Insulin DETEMIR 100 UNIT/ML X5UNITS SQ SCH (08:53)
[2019-01-23] MEDS: Famotidine 20 MG TABLET PO SCH (08:54)
[2019-01-23] MEDS: Lactulose Oral Soln 20 GM/30 ML UDC PO SCH (08:54)
[2019-01-23] MEDS: Insulin LISPRO 300 UNITS/3 ML VIAL SQ SCH ×2 (08:54→12:22)
[2019-01-23] MEDS: Methyl Salicylate/Menthol 28 GM TUBE TP SCH (09:22)
--- NOTE | 2019-01-23 10:23 | Discharge Summary ---
Date of Encounter: 01/23/19 Time of Encounter: 10:15 - Discharge Diagnosis (1) Rotator cuff tear arthropathy of left shoulder Priority: Primary Status: Acute (2) Hepatic encephalopathy Priority: Secondary Status: Acute (3) Weakness Priority: Secondary Status: Acute (4) HTN (hypertension) Priority: Secondary Status: Chronic Qualifiers: Hypertension type: essential hypertension Qualified Code(s): I10 - Essential (primary) hypertension (5) DM type 2 (diabetes mellitus, type 2) Priority: Secondary Status: Chronic Qualifiers: Diabetes mellitus jail insulin use: with remote computer terminal operator use Diabetes mellitus complication status: with hyperglycemia Qualified Code(s): E11.65 - Type 2 diabetes mellitus with hyperglycemia; Z79.4 - termite treater helper (current) use of insulin (6) Hypophosphatemia Priority: Secondary Status: Acute (7) Low vitamin D level Priority: Secondary Status: Acute Hospital course: Ms. Rodriguez is a 73 year old female who was hospitalized in [facility] acute-care January 09- after presenting with a fall. She was treated for hepatic encephalopathy with significant improvement. It was felt she would benefit from ongoing therapy in swing bed. She saw [facility] physician who recommended shoulder MRI. The MRI showed partial left supraspinatus tear with tendinopathy of the supraspinatus, infraspinatus, and subscapularis. Nonsurgical plan of care will be done at this time. She will follow-up as directed with the orthopedist and will have home health services ordered at discharge including PT/OT. Phosphorus level remain WNL on Neutra-Phos daily. She will continue this at discharge. Mental status remained acceptable on rifaximin and lactulose. Prior authorization was completed for rifaximin prior to discharge with coverage through July 2019. She will be discharged home today and follow with her PCP Dr. Cesar Terry within 1 week. Home health services will be ordered. - Time Spent with Patient Total time spent providing and/or coordinating discharge services: - Discharge Medications Prescriptions: New Phos-NaK [Neutra-Phos] 1 each PO DAILY #7 powd.pack traZODone [TraZODone] 50 mg PO HS PRN #30 tablet PRN Reason: Insomnia Continued Guaifenesin [Mucus Relief] 400 mg PO Q12H PRN PRN Reason: Congestion Ferrous Sulfate [Iron] 325 mg PO BID Clopidogrel Bisulfate [Plavix] 75 mg PO DAILY Alirocumab [Praluent Pen] 75 mg SQ Q2W Esomeprazole Magnesium [Nexium] 40 mg PO DAILY PRN #0 PRN Reason: Dyspepsia Tramadol HCl [Ultram] 50 mg PO HS Ranitidine HCl [Acid Tractor Driver Teamster] 150 mg PO DAILY Cholecalciferol (D-3) [Vitamin D] 1,000 unit PO DAILY Fenofibrate,Micronized [Fenofibrate] 200 mg PO DAILY Atenolol [Tenormin] 50 mg PO DAILY Benzonatate [Tessalon] 200 mg PO TID PRN PRN Reason: Cough Methyl Salicylate/Menthol [Bengay] 1 appl TP BID tube Lactulose 30 gm PO TID udc Insulin DETEMIR [Levemir] 50 unit SQ HS [id number] Insulin DETEMIR [Levemir] 75 unit SQ QAM [id number] Mag Hydrox/Al Hydrox/Simeth [Maalox] 15 ml PO Q6HR PRN udc PRN Reason: Dyspepsia MOM Conc [MILK OF MAGNESIA conc] 10 ml PO DAILY PRN ud.liq PRN Reason: Constipation Rifaximin [Xifaxan] 550 mg PO BID tablet Acetaminophen [Tylenol] 650 mg PO Q6HR PRN tablet PRN Reason: Pain Oxycodone HCl/Acetaminophen [Percocet 5-325 mg Tablet] 1 each PO TID PRN 2 Days #6 tab PRN Reason: Pain Discontinued Phos-NaK [Neutra-Phos] 1 each PO BID powd.pack Home Medications: Alirocumab [Praluent Pen] 75 mg SQ Q2W 10/21/18 [History] Clopidogrel Bisulfate [Plavix] 75 mg PO DAILY 10/21/18 [History] Guaifenesin [Mucus Relief] 400 mg PO Q12H PRN 10/25/18 [History] Ferrous Sulfate [Iron] 325 mg PO BID 12/09/18 [History] Esomeprazole Magnesium [Nexium] 40 mg PO DAILY PRN #0 12/27/18 [Rx] Atenolol [Tenormin] 50 mg PO DAILY 01/09/19 [History] Benzonatate [Tessalon] 200 mg PO TID PRN 01/09/19 [History] Cholecalciferol (D-3) [Vitamin D] 1,000 unit PO DAILY 01/09/19 [History] Fenofibrate,Micronized [Fenofibrate] 200 mg PO DAILY 01/09/19 [History] Ranitidine HCl [Acid Tractor Driver Teamster] 150 mg PO DAILY 01/09/19 [History] Tramadol HCl [Ultram] 50 mg PO HS 01/09/19 [History] Acetaminophen [Tylenol] 650 mg PO Q6HR PRN tablet 01/13/19 [Rx] Insulin DETEMIR [Levemir] 50 unit SQ HS [id number] 01/13/19 [Rx] Insulin DETEMIR [Levemir] 75 unit SQ QAM [id number] 01/13/19 [Rx] Lactulose 30 gm PO TID udc 01/13/19 [Rx] MOM Conc [MILK OF MAGNESIA conc] 10 ml PO DAILY PRN ud.liq 01/13/19 [Rx] Mag Hydrox/Al Hydrox/Simeth [Maalox] 15 ml PO Q6HR PRN udc 01/13/19 [Rx] Methyl Salicylate/Menthol [Bengay] 1 appl TP BID tube 01/13/19 [Rx] Rifaximin [Xifaxan] 550 mg PO BID tablet 01/13/19 [Rx] Oxycodone HCl/Acetaminophen [Percocet 5-325 mg Tablet] 1 each PO TID PRN 2 Days #6 tab 01/23/19 [Rx] Phos-NaK [Neutra-Phos] 1 each PO DAILY #7 powd.pack 01/23/19 [Rx] traZODone [TraZODone] 50 mg PO HS PRN #30 tablet 01/23/19 [Rx] Allergies/Adverse Reactions: Allergy/AdvReac Type Severity Reaction Status Date / Time lisinopril Allergy See Verified 12/08/18 15:55 Comments losartan Allergy See Verified 12/08/18 15:55 Comments codeine AdvReac Nausea Verified 10/21/18 21:33 rosuvastatin [From Crestor] AdvReac See Verified 10/21/18 21:33 Comments Sulfa (Sulfonamide AdvReac Cough Verified 10/21/18 21:33 Antibiotics) Date of admission: 01/13/19 14:36 Primary care physician: Cesar Terry MD Consults: 01/13/19 14:31 Consult to Occupational Therapy [CONS] Routine Comment: Evaluate, develop and implement plan of care Reason for Consult: Evaluate, develop and implement plan of care Does patient have active BEDREST order?: No Is patient medically & hemodynamically stable?: Yes Patient assessed for mobility or mobilized this visit?: Yes Consult to Physical Therapy [CONS] Routine Comment: Evaluate, develop and implement plan of care Reason for Consult: Evaluate, develop and implment plan of care Does patient have active BEDREST order?: No Is patient medically & hemodynamically stable?: Yes Patient assessed for mobility or mobilized this visit?: Yes Consult to Loan Servicing Officer [CONS] Routine Reason for SW Consult: Discharge planning - Constitutional Vitals: Temp Pulse Resp BP Pulse Ox 98.0 F 82 16 176/73 94 01/23/19 07:00 01/23/19 07:00 01/23/19 07:00 01/23/19 07:00 01/23/19 07:00 - Patient Status Disposition: Home Health Service - Discharge Instructions Follow Up With: Cesar Terry MD [Primary Care Provider] - 1 week (January @ 0900 with Jeanine.) - Diet and Activity Activity: as per physical therapy Diet: advance to your usual diet
--- NOTE | 2019-01-23 10:44 | Physician Discharge Referral ---
Home Health/Hosp Referral Info Transfer to: Home Health Attending Provider: Devon Provider in Charge Post Discharge: PCP (Cesar Terry M.D.) - Diagnosis (1) Rotator cuff tear arthropathy of left shoulder Priority: Primary Status: Acute (2) Hepatic encephalopathy Priority: Secondary Status: Acute (3) Weakness Priority: Secondary Status: Acute (4) HTN (hypertension) Priority: Secondary Status: Chronic (5) DM type 2 (diabetes mellitus, type 2) Priority: Secondary Status: Chronic (6) Hypophosphatemia Priority: Secondary Status: Acute (7) Low vitamin D level Priority: Secondary Status: Acute - Respiratory Orders Smoking Cessation: Smoking cessation has been advised. For more information, call the [place] Tobacco Quit Line at 3-822-TBOI-NOW. - Diet/Nutrition Diet/Nutrition Orders: No Concentrated Sweets - Activity Activity Orders: Walker - Services Needed Following services are medically necessary services: Nursing, Home Health Aide, Physical Therapy, Occupational Therapy - Transfer Medications Prescriptions: Phos-NaK [Neutra-Phos] 1 each PO DAILY #7 powd.pack Transmission Status: Pending to [facility] Oxycodone HCl/Acetaminophen [Percocet 5-325 mg Tablet] 1 each PO TID PRN 2 Days #6 tab PRN Reason: Pain Prescription Printed traZODone [TraZODone] 50 mg PO HS PRN #30 tablet PRN Reason: Insomnia Transmission Status: Pending to [facility] Home Medications: Alirocumab [Praluent Pen] 75 mg SQ Q2W 10/21/18 [History] Clopidogrel Bisulfate [Plavix] 75 mg PO DAILY 10/21/18 [History] Guaifenesin [Mucus Relief] 400 mg PO Q12H PRN 10/25/18 [History] Ferrous Sulfate [Iron] 325 mg PO BID 12/09/18 [History] Esomeprazole Magnesium [Nexium] 40 mg PO DAILY PRN #0 12/27/18 [Rx] Atenolol [Tenormin] 50 mg PO DAILY 01/09/19 [History] Benzonatate [Tessalon] 200 mg PO TID PRN 01/09/19 [History] Cholecalciferol (D-3) [Vitamin D] 1,000 unit PO DAILY 01/09/19 [History] Fenofibrate,Micronized [Fenofibrate] 200 mg PO DAILY 01/09/19 [History] Ranitidine HCl [Acid Machine Wood Sander] 150 mg PO DAILY 01/09/19 [History] Tramadol HCl [Ultram] 50 mg PO HS 01/09/19 [History] Acetaminophen [Tylenol] 650 mg PO Q6HR PRN tablet 01/13/19 [Rx] Insulin DETEMIR [Levemir] 50 unit SQ HS [id number] 01/13/19 [Rx] Insulin DETEMIR [Levemir] 75 unit SQ QAM [id number] 01/13/19 [Rx] Lactulose 30 gm PO TID udc 01/13/19 [Rx] MOM Conc [MILK OF MAGNESIA conc] 10 ml PO DAILY PRN ud.liq 01/13/19 [Rx] Mag Hydrox/Al Hydrox/Simeth [Maalox] 15 ml PO Q6HR PRN udc 01/13/19 [Rx] Methyl Salicylate/Menthol [Bengay] 1 appl TP BID tube 01/13/19 [Rx] Rifaximin [Xifaxan] 550 mg PO BID tablet 01/13/19 [Rx] Oxycodone HCl/Acetaminophen [Percocet 5-325 mg Tablet] 1 each PO TID PRN 2 Days #6 tab 01/23/19 [Rx] Phos-NaK [Neutra-Phos] 1 each PO DAILY #7 powd.pack 01/23/19 [Rx] traZODone [TraZODone] 50 mg PO HS PRN #30 tablet 01/23/19 [Rx] Allergies/Adverse Reactions: Allergy/AdvReac Type Severity Reaction Status Date / Time lisinopril Allergy See Verified 12/08/18 15:55 Comments losartan Allergy See Verified 12/08/18 15:55 Comments codeine AdvReac Nausea Verified 10/21/18 21:33 rosuvastatin [From Crestor] AdvReac See Verified 10/21/18 21:33 Comments Sulfa (Sulfonamide AdvReac Cough Verified 10/21/18 21:33 Antibiotics) Certification: Further, I certify that my clinical findings support that this patient is homebound (i.e. absences from home require considerable and taxing effort and are for medical reasons or orthodoxy services or infrequently or short duration when for other reasons) because: Homebound Reason: Leaving home requires considerable and taxing effort due to condition (Ability secondary to hepatic encephalopathy) Attestation: My signature below is to certify that this patient is under my care and that I, or nurse practitioner, or a physician's family medicine physician assistant working with me, has a [id number] encounter with this patient.
[2019-01-27] MEDS ORDERED: PRALUENT 75 MG SQ SCH (09:00)
== END 2019-01-23 12:05 | disposition home health service (06) | DRG 946 ==
LOC: INPPIK 14:36
PROVIDERS: ADMIT Internal Medicine; ATTEND Internal Medicine